=== PATIENT | male | born 1975 | race Caucasian/White ===

== ENCOUNTER 2016-07-19 10:56 | Emergency (ER) | payer SELFPAY ==
[~2016-07-19] VITALS: Ht 167.6 cm; Wt 74.0 kg
[2016-07-19 11:12] VITALS: BP 100/73; PULSE 81; RESP 16; TEMP 98.2; O2SAT 97
[2016-07-19] MEDS ORDERED: CLIN1CAP6 PO (11:26)
[2016-07-19] MEDS ORDERED: [UNRECOGNIZED DRUG - CODE] TOPICAL (11:26)
--- NOTE | 2016-07-19 11:26 | PD ---
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 Patient has had recurrent skin infection, abscess over the course of the last 20-30 years. He notes 4 days of lesion to the right arm and right face. The right facial lesion is larger and has not been draining. He notes a slight amount of pain but no weakness of the facial muscles. The right forearm lesion he was able to "pop" and removed a small amount of purulent fluid with improvement of his symptoms. PFSH Past Medical History Medical History: Denies Significant Hx Diminished Hearing: No Tetanus Vaccination: > 5 Years Influenza Vaccination: No Past Surgical History Surgical History: No Previous Surgery Other Surgery: Yes (TRACHEOTOMY 6 YRS AGO) Social History Alcohol Use: Yes (occ) Tobacco Use: No Substance Use: No (HISTORY heroin 2005, no current use) Allergies-Medications (Allergen,Severity, Reaction): Coded Allergies: Bactrim (Verified Allergy, Severe, RASH, 07/19/16) Sulfa (Verified Allergy, Severe, Rash, 07/19/16) *MDRO Multi-Drug Resistant Organism (Verified Adverse Reaction, Unknown, ) MRSA (face-06/2015); MRSA (face-10/2015); MRSA (scalp-01/21/16) Reported Meds & Prescriptions Reported Meds & Active Scripts Active Clindamycin (Clindamycin HCl) 300 Mg Cap 300 Mg PO Q6H 7 Days Betasept Surgical Scrub Topical (Chlorhexidine Gluconate) 4% Liq 1 Applic TOPICAL ONCE Review of Systems Except as stated in HPI: all other systems reviewed are Neg Physical Exam Narrative GENERAL: Well-appearing male in no acute distress SKIN: Warm and dry. HEAD: Atraumatic. Normocephalic. EYES: Pupils equal and round. No scleral icterus. No injection or drainage. ENT: No nasal bleeding or discharge. Mucous membranes pink and moist. Abscess to the right cheek/face with minimal surrounding induration. Erythema with slight amount of induration to the right dorsal forearm with no fluctuance NECK: Supple CARDIOVASCULAR: Regular rate and rhythm. RESPIRATORY: No accessory muscle use. MUSCULOSKELETAL: Moves all extremity's normally NEUROLOGICAL: Awake and alert. No obvious cranial nerve deficits. Motor grossly within normal limits. Normal speech. PSYCHIATRIC: Appropriate mood and affect; insight and judgment normal. Data Data Last Documented VS Vital Signs Date Time Temp Pulse Resp B/P Pulse Ox O2 Delivery O2 Flow Rate FiO2 07/19/16 11:12 98.2 81 16 100/73 97 Orders Lidocai-Epi 1%-1:100,000 Inj (Xylocaine- (07/19/16 11:30) [facility] Medical Decision Making Medical Screen Exam Complete: Yes Emergency Medical Condition: Yes Medical Record Reviewed: Yes Differential Diagnosis 41-year-old male here with complaint of MRSA, abscess. Exam is consistent with abscess of the face which will require drainage. Patient has abscess to the right forearm that has arty spontaneously drained. Narrative Course I&D performed to the right face by PA, please see procedure note. Will treat with clindamycin and chlorhexidine for home. Diagnosis Primary Impression: Facial abscess Additional Impression: Abscess of forearm, right Referrals: Primary Care Physician as needed Med/Other Pt SpecificInfo: Prescription(s) given Scripts Clindamycin 300 Mg [id number] Mg PO Q6H 7 Days Ref 0 Prov:Zenaida Anderson MD 07/19/16 Chlorhexidine Gluconate Topical (Betasept Surgical Scrub Topical)4% Liq1 Applic TOPICAL ONCE #118 ML Ref 0 Prov:Zenaida Anderson MD 07/19/16 Disposition: 01 DISCHARGE HOME Condition: Stable Zenaida Anderson MD Jul 19, 2016 11:26
[2016-07-19] MEDS ORDERED: LIDOCAINE 1%/EPINEPHrine 1:100,000 SOLN 20 ML VIAL INFIL ONE (11:30)
--- NOTE | 2016-07-19 11:51 | PD ---
Physical Exam Date Seen by Provider: Jul 19, 2016 Time Seen by Provider: 11:51 Data Data Last Documented VS Vital Signs Date Time Temp Pulse Resp B/P Pulse Ox O2 Delivery O2 Flow Rate FiO2 07/19/16 11:12 98.2 81 16 100/73 97 Orders Lidocai-Epi 1%-1:100,000 Inj (Xylocaine- (07/19/16 11:30) MDM Supervised Visit with FRAN: No Narrative Course I was asked to evaluate this patient's facial abscess by Dr. Anderson. She initially saw the patient. Please see her note for full H&P. On my exam this is a nontoxic-appearing 41-year-old male with a 1 cm fluctuant area of the right cheek surrounded by a 3 cm area of induration. There is a small scab on top of the abscess but no drainage. Abscess I&D was performed. Please see my procedure note for details. Dr. Anderson retains care of this patient. Please see her note for disposition. Procedures Procedure Narrative INCISION AND DRAINAGE OF ABSCESS: The area was prepped and was sterilely draped. A subcutaneous wheal of 1% Xylocaine with epinephrine with a total number 2 mL was used to anesthetize the area properly. A number 11 scalpel was used to make a 1-cm incision across the area of the abscess. The abscess was drained, complex loculations were broken down, and irrigated with normal saline. Cultures were obtained. Sterile dressing applied. Patient advised to keep the area clean, dry and covered. Diagnosis Primary Impression: Facial abscess Additional Impression: Abscess of forearm, right Referrals: Primary Care Physician as needed Scripts Clindamycin 300 Mg [id number] Mg PO Q6H 7 Days Ref 0 Prov:Zenaida Anderson MD 07/19/16 Chlorhexidine Gluconate Topical (Betasept Surgical Scrub Topical)4% Liq1 Applic TOPICAL ONCE #118 ML Ref 0 Prov:Zenaida Anderson MD 07/19/16 Disposition: 01 DISCHARGE HOME Condition: Stable Katie Delcid Jul 19, 2016 11:51
== END 2016-07-19 12:29 | disposition home or self-care (01) ==
LOC: PHEFT 10:56
DX: L02.01 Cutaneous abscess of face (principal); L02.413 Cutaneous abscess of right upper limb; B95.62 Methicillin resistant Staphylococcus aureus infection as the cause of diseases classified elsewhere
CPT/HCPCS: 10060; 86403; 87070; 87186; 87205

== ENCOUNTER 2016-11-11 12:06 | Emergency (ER) | payer SELFPAY ==
[~2016-11-11] VITALS: Ht 167.6 cm; Wt 74.0 kg
[~2016-11-11 12:06] MED LIST: CLIN1CAP6 PO; [UNRECOGNIZED DRUG - CODE] TOPICAL
[2016-11-11 12:08] VITALS: BP 124/68; PULSE 97; RESP 18; TEMP 98.1; O2SAT 98
--- NOTE | 2016-11-11 12:12 | PD ---
Physical Exam Time Seen by Provider: 12:11 Narrative 41yo M c/o R hand pain and swelling x 2days. Denies injury, IV drug use. Denies fever, vomiting. Patient seen in triage. VS reviewed. Awaiting bed placement. Data Data Last Documented VS Vital Signs Date Time Temp Pulse Resp B/P Pulse Ox O2 Delivery O2 Flow Rate FiO2 11/11/16 12:08 98.1 97 18 124/68 98 Room Air MDM Supervised Visit with FRAN: Leticia Moss Nov 11, 2016 12:12
--- NOTE | 2016-11-11 13:36 | PD ---
HPI . Right hand swelling and redness for 1-2 days Chief Complaint: Skin Problem Time Seen by Provider: 13:36 Travel History International Travel<30 days: No Contact w/Intl Traveler<30days: No Traveled to known affect area: No History of Present Illness HPI 41-year-old male with history of MRSA here with complaints of right hand swelling and erythema for 1-2 days. Patient tells me that he recently had an infection on his cheek and was diagnosed with MRSA. He says he is prone to abscesses and thinks that this is the start of 1. He does not recall any mechanism of injury or insect bite. 2 swelling, redness and pain at proximal right thumb. He tells me has a tendency of forming abscesses and decided to come in before that happened. He denies any fever or chills. He has no other complaints. 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 PFSH Past Medical History Diminished Hearing: No Medical other: Yes (MRSA HX) Tetanus Vaccination: > 5 Years Influenza Vaccination: No Past Surgical History Surgical History: No Previous Surgery Other Surgery: Yes (TRACHEOTOMY 6 YRS AGO) Social History Alcohol Use: Yes (occ) Tobacco Use: No Substance Use: No (HISTORY heroin 2005, no current use) Allergies-Medications (Allergen,Severity, Reaction): Coded Allergies: Bactrim (Verified Allergy, Severe, RASH, 11/11/16) Sulfa (Verified Allergy, Severe, Rash, 11/11/16) *MDRO Multi-Drug Resistant Organism (Verified Adverse Reaction, Unknown, ) 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, 10/2015, 07/19/16 MRSA (scalp-01/21/16) Reported Meds & Prescriptions Reported Meds & Active Scripts Active Clindamycin (Clindamycin HCl) 300 Mg Cap 300 Mg PO TID Review of Systems General / Constitutional: No: Fever Eyes: No: Visual changes HENT: No: Headaches Cardiovascular: No: Chest Pain or Discomfort Respiratory: No: Shortness of Breath Gastrointestinal: No: Abdominal Pain Genitourinary: No: Dysuria Musculoskeletal: Positive: Pain (right hand) Skin: Positive Other (right hand edema/redness), No Rash Neurologic: No: Weakness Psychiatric: No: Depression Endocrine: No: Polydipsia Hematologic/Lymphatic: No: Easy Bruising Physical Exam Narrative GENERAL: AAO x 3, no acute distress, Well-nourished, well-developed patient. SKIN: Warm and dry. No visible rashes or bruising. Right hand proximal thumb with erythema, very minimal edema, minimally warm to touch compared to surrounding tissue, no definitive abscess formation. HEAD: Normocephalic and atraumatic. EYES: No scleral icterus. No injection or drainage. EOM intact, PERRLA ENT: No nasal drainage noted. Mucous membranes pink. Airway patent. NECK: Supple, trachea midline. No JVD. CARDIOVASCULAR: Regular rate and rhythm without murmurs, gallops, or rubs. RESPIRATORY: Breath sounds equal bilaterally. No accessory muscle use. No rhonchi or rales. GASTROINTESTINAL: Abdomen soft, non-tender, nondistended. EXTREMITIES: No cyanosis or edema. Right hand all digits move freely. Capillary refill is normal in all digits. BACK: Nontender without obvious deformity. No CVA tenderness. NEURO: CN II-12 intact, events associate strength normal b/l, UE and LE 5/5, no focal deficits PSYCH: AAO x 3, normal affect. Data Data Last Documented VS Vital Signs Date Time Temp Pulse Resp B/P Pulse Ox O2 Delivery O2 Flow Rate FiO2 11/11/16 13:28 17 11/11/16 12:08 98.1 97 124/68 98 Room Air MDM Medical Decision Making Medical Screen Exam Complete: Yes Emergency Medical Condition: Yes Medical Record Reviewed: Yes Differential Diagnosis Right hand cellulitis, less likely abscess, history of MRSA, less likely sepsis Narrative Course 41-year-old male here with a mild case of cellulitis. I will go ahead and treat him with clindamycin as he is allergic to Bactrim. I have discussed signs of worsening infection and when to return to the emergency department. Patient verbalized understanding of instructions, questions were answered, and thanked me for their care. I advised them if their condition worsens, please return to the nearest emergency room for further care. Diagnosis Primary Impression: Cellulitis of right hand Patient Instructions: General Instructions Additional Instructions: Royal for worsening signs of infection which include fever, increased redness , increased warmth, purulent drainage, increased swelling or streaking. If any of these develop, please go to the nearest emergency room. Please return to emergency department if your symptoms return or worsen. Follow up with your primary care provider. Take medications as prescribed. Med/Other Pt SpecificInfo: Prescription(s) given Scripts Clindamycin 300 Mg [id number] Mg PO TID #21 CAP Prov:Aleisha Jolley MD 11/11/16 Disposition: 01 DISCHARGE HOME Condition: Stable Sejal Gottlieb Nov 11, 2016 13:36
[2016-11-11] MEDS ORDERED: CLIN1CAP6 PO (13:37)
[2016-11-11 13:58] VITALS: BP 120/71; TEMP 97.9
== END 2016-11-11 14:00 | disposition home or self-care (01) ==
LOC: NEPD 12:06
DX: L03.113 Cellulitis of right upper limb (principal); Z86.14 Personal history of Methicillin resistant Staphylococcus aureus infection
CPT/HCPCS: 99283

== ENCOUNTER 2016-11-16 17:51 | Emergency (ER) | payer SELFPAY ==
[~2016-11-16] VITALS: Ht 170.2 cm; Wt 65.0 kg
[2016-11-16 17:54] VITALS: BP 118/75; PULSE 154; RESP 18; TEMP 98.9; O2SAT 96
--- NOTE | 2016-11-16 17:57 | PD ---
Physical Exam Time Seen by Provider: 17:55 Narrative 41yo M c/o spider date x4 days ago. Was seen 2 days ago and has been taking clindamycin for 2 days w/ worsening of symptoms. +dizziness, R hand going numb. Denies fever, vomiting. Honorio TREVINO-says he's been clean for 3 years. HR elevated; pateint says he road his bike about 15 miles to be evaluated. HR will be reevaluated in ER. Patient seen in triage. VS reviewed. Patient taken to ER room. Data Data Last Documented VS Vital Signs Date Time Temp Pulse Resp B/P Pulse Ox O2 Delivery O2 Flow Rate FiO2 11/16/16 17:54 98.9 154 18 118/75 96 MDM Supervised Visit with FRAN: Leticia Moss Nov 16, 2016 17:57
[2016-11-16] MEDS: SODIUM CHLOR 0.9% 1000 ML INJ 1,000 ML IV SCH ×4 (18:09→18:15)
--- NOTE | 2016-11-16 18:16 | PD ---
HPI Chief Complaint: Bite or Sting Time Seen by Provider: 18:05 Travel History International Travel<30 days: No Contact w/Intl Traveler<30days: No Traveled to known affect area: No History of Present Illness HPI 41-year-old male presents for reevaluation of right hand cellulitis. The patient reports that 4-5 days ago he was doing some yard work and he believes that he may been bitten by a spider or some other type of bug. The next day he woke up with some pain and redness to the dorsal aspect of the proximal right thumb. He was seen here on November 11, diagnosed with synovitis right hand, discharged on clindamycin. He reports worsening pain and swelling in the region today which prompted evaluation. He denies any fevers or chills. He does endorse some dizziness prior to arrival when he was riding his bike as she reports that he had a ride his bike 15 miles in order to get here and he was feeling somewhat dizzy during the ride. This has resolved. He was noted to be quite tachycardic in triage. He is denying any palpitations, chest pain or shortness of breath, fevers or chills, nausea or vomiting. He denies any dark colored urine. He denies any change in diet. He denies any IV drug abuse. He has no other complaints. [facility] Past Medical History Diminished Hearing: No Past Surgical History Other Surgery: Yes (TRACHEOTOMY 6 YRS AGO) Social History Alcohol Use: Yes ([facility]) Tobacco Use: No Substance Use: No (HISTORY heroin 2005, no current use) Allergies-Medications (Allergen,Severity, Reaction): Coded Allergies: Bactrim (Verified Allergy, Severe, RASH, 11/16/16) Sulfa (Verified Allergy, Severe, Rash, 11/16/16) *MDRO Multi-Drug Resistant Organism (Verified Adverse Reaction, Unknown, ) 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, 10/2015, 07/19/16 MRSA (scalp-01/21/16) Reported Meds & Prescriptions Reported Meds & Active Scripts Active Clindamycin (Clindamycin HCl) 300 Mg Cap 300 Mg PO TID Review of Systems Except as stated in HPI: all other systems reviewed are Neg Physical Exam Narrative GENERAL: Well-developed well-nourished male in no acute distress resting complaint hospital bed. Tachycardic. SKIN: Warm and dry. There is a 2 cm area of mild induration and erythema to the dorsal aspect of the right hand just proximal to the thumb. There is no fluctuance or drainage. There is no proximal streaking or axillary lymphadenopathy. HEAD: Atraumatic. Normocephalic. EYES: Pupils equal and round. No scleral icterus. No injection or drainage. ENT: No nasal bleeding or discharge. Mucous membranes pink and moist. NECK: Trachea midline. No JVD. CARDIOVASCULAR: Regular rate and rhythm. No murmur appreciated. RESPIRATORY: No accessory muscle use. Clear to auscultation. Breath sounds equal bilaterally. GASTROINTESTINAL: Abdomen soft, non-tender, nondistended. Hepatic and splenic margins not palpable. MUSCULOSKELETAL: Skin as noted above with no obvious bony deformity. The patient maintains full range of motion of the right hand, thumb, no joint swelling. NEUROLOGICAL: Awake and alert. No obvious cranial nerve deficits. Motor grossly within normal limits. Normal speech. Data Data Last Documented VS Vital Signs Date Time Temp Pulse Resp B/P Pulse Ox O2 Delivery O2 Flow Rate FiO2 11/16/16 18:08 138 17 11/16/16 17:54 98.9 118/75 96 Orders Complete Blood Count With Diff (11/16/16 18:09) Comprehensive Metabolic Panel (11/16/16 18:09) Lactic Acid (11/16/16 18:09) Sodium Chlor 0.9% 1000 Ml Inj (Ns 1000 M (11/16/16 18:09) Electrocardiogram (11/16/16 18:09) Sodium Chlor 0.9% 1000 Ml Inj (Ns 1000 M (11/16/16 18:09) Creatine Kinase (Cpk) (11/16/16 18:09) Hand, Complete ([id number]) (11/16/16 ) Blood Culture (11/16/16 18:09) MDM Medical Decision Making Medical Screen Exam Complete: Yes Emergency Medical Condition: Yes Medical Record Reviewed: Yes Differential Diagnosis Cellulitis, abscess, septic arthritis, tenosynovitis Narrative Course 41-year-old male presents for reevaluation of right hand cellulitis presumably from a bug bite sustained while doing yardwork 4-5 days ago. Examination reveals a mild area of induration and cellulitis on the dorsal right hand with no abscess formation, no evidence of tenosynovitis or septic arthritis. He was markedly tachycardic in triage, he reports that he had to ride his bicycle 15 miles in order to get here. He is denying any palpitations or shortness of breath. He does endorse some dizziness while he was riding his bicycle. Plan is for basic lab work, 2 L of IV fluids. He was placed on ECG monitoring, pulse oximetry. Twelve-lead EKG will be obtained. Shortly after examination the patient's nurse told me that the patient is refusing any sort of testing or additional intervention. He would like some form of incision and drainage to be performed and that is all that he is willing to have done at this time. He has no fluctuant abscess at this time, he has purely indurated cellulitic changes and would not benefit from incision and drainage. I am concerned about his dizziness and his tachycardia which is not resolved during his ED stay thus far and explained to the patient my concerns and the reason for additional testing but the patient is refusing it and he ripped off his ECG monitoring pads. Looking at his recent visits he has been seen here multiple times for frequent cellulitis and abscess formation issues, most recently he was seen here in July 19 for a facial abscess. The culture at that time grew out staph aureus MRSA which was resistant to clindamycin however was susceptible to doxycycline. Therefore my plan upon discharge would be to give this patient a prescription for doxycycline to use instead of clindamycin over the patient is refusing any additional antibiotic prescriptions as well. He is signing out AGAINST MEDICAL ADVICE. I attempted to explain the risks of this to him prior to him walking out. AMA: The risks of leaving against medical advice without further evaluation treatment were discussed with the patient. These risks include cardiac dysfunction, sepsis, dehydration, . The patient indicated understanding of these risks and appeared to have the capacity to make this decision. Disposition: 07 AGAINST MEDICAL ADVICE Condition: Stable Etienne Tucker Nov 16, 2016 18:16
--- NOTE | 2016-11-17 06:49 | EKG ---
Date Performed: 11/16/2016 Time Performed: 18:23:40 PTAGE: 41 years EKG: SINUS TACHYCARDIA NONSPECIFIC T-WAVE ABNORMALITY ABNORMAL RHYTHM ECG PREVIOUS TRACING : 07/20/2008 22.01 Compared to previous tracing nonspecific T wave abnormality is now present. DOCTOR: Roderick Watson Interpretating Date/Time 11/17/2016 06:47:16
== END 2016-11-16 18:58 | disposition left against medical advice (07) ==
LOC: NEPE 17:51
DX: L03.113 Cellulitis of right upper limb (principal); R00.0 Tachycardia, unspecified; R94.31 Abnormal electrocardiogram [ECG] [EKG]
CPT/HCPCS: 93005; J7030

== ENCOUNTER 2016-12-30 08:09 | Emergency (ER) | payer SELFPAY ==
[~2016-12-30] VITALS: Ht 167.6 cm; Wt 68.1 kg
[~2016-12-30 08:09] MED LIST changes: -[UNRECOGNIZED DRUG - CODE] TOPICAL
[2016-12-30 08:11] VITALS: BP 123/81; PULSE 77; RESP 16; TEMP 97.9; O2SAT 99
[2016-12-30] MEDS ORDERED: DOXY100C PO (08:24)
--- NOTE | 2016-12-30 08:24 | PD ---
HPI Chief Complaint: Skin Problem Time Seen by Provider: 08:16 Travel History International Travel<30 days: No Contact w/Intl Traveler<30days: No Traveled to known affect area: No History of Present Illness HPI RIGHT SIDE OF CHIN REDNESS, SWELLING FOR LAST 2 DAYS NOT IMPROVING, SORE, NOT DRAINING, TENDER TO TOUCH 3/10, SHARP, NO OTHER SICK CONTACTS, HAS HAD MRSA EXPOSURE BEFORE (STATES BACTRIM CAUSED HIVES) PFSH Past Medical History Diminished Hearing: No Gastrointestinal Disorders: Yes Influenza Vaccination: No ?: Not Past Surgical History Surgical History: No Previous Surgery Other Surgery: Yes (TRACHEOTOMY 6 YRS AGO) Social History Alcohol Use: Yes (occ) Tobacco Use: No Substance Use: No (HISTORY heroin 2005, no current use) Allergies-Medications (Allergen,Severity, Reaction): Coded Allergies: Bactrim (Verified Allergy, Severe, RASH, 12/30/16) Sulfa (Verified Allergy, Severe, Rash, 12/30/16) *MDRO Multi-Drug Resistant Organism (Verified Adverse Reaction, Unknown, ) 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, 10/2015, 07/19/16 MRSA (scalp-01/21/16) Reported Meds & Prescriptions Reported Meds & Active Scripts Active Review of Systems Except as stated in HPI: all other systems reviewed are Neg Skin: Positive Rash Physical Exam Narrative GENERAL: SKIN: Warm and dry. AREA ON RIGHT MENTAL REGION, NICKEL SIZE IN CIRCUMFERENCE, NO DRAINAGE, ERYTHEMATOUS AND INDURATED, NO CERVICAL LAD, NO STREAKING HEAD: Atraumatic. Normocephalic. EYES: Pupils equal and round. No scleral icterus. No injection or drainage. ENT: No nasal bleeding or discharge. Mucous membranes pink and moist. NECK: Trachea midline. No JVD. CARDIOVASCULAR: Regular rate and rhythm. RESPIRATORY: No accessory muscle use. Clear to auscultation. Breath sounds equal bilaterally. GASTROINTESTINAL: Abdomen soft, non-tender, nondistended. MUSCULOSKELETAL: Extremities without clubbing, cyanosis, or edema. No obvious deformities. NEUROLOGICAL: Awake and alert. No obvious cranial nerve deficits. Motor grossly within normal limits. Five out of 5 muscle strength in the arms and legs. Normal speech. PSYCHIATRIC: Appropriate mood and affect; insight and judgment normal. Data Data Last Documented VS Vital Signs Date Time Temp Pulse Resp B/P Pulse Ox O2 Delivery O2 Flow Rate FiO2 12/30/16 08:11 97.9 77 16 123/81 99 Orders Clindamycin Inj (Cleocin Inj) (12/30/16 08:30) MDM Medical Decision Making Medical Screen Exam Complete: Yes Emergency Medical Condition: Yes Medical Record Reviewed: Yes Differential Diagnosis CELLULITIS V ABSCESS V ODONTOGENIC SOURCE Narrative Course AFTER EVALUATION NO ODONTOGENIC SOURCE, ISOLATED SKIN CELLULITIS ON CHIN, NO SUBMAND/SUBMENTAL EXTENSION, NO CERVICAL LAD, NO STREAKING. Diagnosis Primary Impression: FACIAL CELLULITIS Scripts Doxycycline Hyclate 100 Mg [id number] Mg PO BID #20 CAP Prov:Que Briones MD 12/30/16 Disposition: 01 DISCHARGE HOME Condition: Stable Que Briones MD Dec 30, 2016 08:24
[2016-12-30] MEDS ORDERED: CLINDAMYCIN PHOS 300 MG/2 ML VIAL IM ONE (08:30)
[2016-12-30] MEDS ORDERED: CLINDAMYCIN PHOS 600 MG/4 ML VIAL IM ONE (08:45)
== END 2016-12-30 08:58 | disposition home or self-care (01) ==
LOC: PHED 08:09
DX: L03.211 Cellulitis of face (principal)
CPT/HCPCS: 96372

== ENCOUNTER 2017-01-07 18:13 | Emergency (ER) | payer SELFPAY ==
[~2017-01-07] VITALS: Ht 167.6 cm; Wt 69.8 kg
[~2017-01-07 18:13] MED LIST changes: -CLIN1CAP6 PO; +DOXY100C PO
[2017-01-07 19:34] VITALS: BP 120/77; PULSE 93; RESP 20; TEMP 98; O2SAT 99
[2017-01-07] MEDS ORDERED: LIDOCAINE HCL 1% 50 ML VIAL INFIL ONE (20:45)
--- NOTE | 2017-01-07 21:36 | PD ---
HPI Chief Complaint: Skin Problem Time Seen by Provider: 20:15 Travel History International Travel<30 days: No Contact w/Intl Traveler<30days: No Traveled to known affect area: No History of Present Illness HPI 41-year-old male presents to the emergency room for evaluation of an abscess to his right posterior lateral neck for the past 2 days. Patient states it started off as a small ingrown hair and grew rapidly in size. He came to the emergency room 2 days ago for an abscess to his face and was given a prescription for clindamycin. States he has been taking it as prescribed and noticed the abscess form shortly afterward. He denies fever, chills, nausea, vomiting. He has history of MRSA and states this is the ninth time he came to the emergency room in the past few years for abscess or cellulitis. PFSH Past Medical History Diminished Hearing: No Gastrointestinal Disorders: Yes Medical other: Yes (reoccurring abcesses) Tetanus Vaccination: Unknown Influenza Vaccination: No Past Surgical History Abdominal Surgery: Yes (stomach repair) Other Surgery: Yes (TRACHEOTOMY 6 YRS AGO) Social History Alcohol Use: Yes (social) Tobacco Use: No Substance Use: No (HISTORY heroin 2005, no current use) Allergies-Medications (Allergen,Severity, Reaction): Coded Allergies: Bactrim (Verified Allergy, Severe, RASH, 01/07/17) Sulfa (Verified Allergy, Severe, Rash, 01/07/17) *MDRO Multi-Drug Resistant Organism (Verified Adverse Reaction, Unknown, ) 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, 10/2015, 07/19/16 MRSA (scalp-01/21/16) Reported Meds & Prescriptions Reported Meds & Active Scripts Active Doxycycline Hyclate 100 Mg Cap 100 Mg PO BID Review of Systems Except as stated in HPI: all other systems reviewed are Neg Physical Exam Narrative GENERAL: Well-nourished, well-developed male in no acute distress. Afebrile. Ambulatory. SKIN: Focused skin assessment warm/dry. There is an indurated area in the right posterior lateral neck which measures about 3 cm in diameter. It is fluctuant but there is no pointing or drainage. There is a zone of inflammation around it but no lymphangitis. HEAD: Normocephalic. EYES: No scleral icterus. No injection or drainage. NECK: Supple, trachea midline. No JVD or lymphadenopathy. CARDIOVASCULAR: Regular rate and rhythm without murmurs, gallops, or rubs. RESPIRATORY: Breath sounds equal bilaterally. No accessory muscle use. PSYCHIATRIC: No delusional thought processes. No hallucinations. Data Data Last Documented VS Vital Signs Date Time Temp Pulse Resp B/P Pulse Ox O2 Delivery O2 Flow Rate FiO2 01/07/17 19:34 98.0 93 20 120/77 99 Orders Lidocaine 1% Inj (50 Ml) (Xylocaine 1% I (01/07/17 20:45) [facility] Medical Decision Making Medical Screen Exam Complete: Yes Emergency Medical Condition: Yes Medical Record Reviewed: Yes Differential Diagnosis Abscess, cellulitis, folliculitis Narrative Course 41-year-old male presents to the emergency room for evaluation of abscess to his right posterior lateral neck for the past 2 days. Patient was put on clindamycin 2 days ago for an unrelated abscess on his face and noticed the development shortly afterward. Denies spontaneous drainage. No systemic signs of infection. Vital signs stable. Patient is afebrile and well-appearing in the emergency room. There is a 3 cm abscess to the right posterior lateral neck without lymphangitis. It is extremely tender to palpation. Abscess was drained, see procedure note for details. Patient told to continue clindamycin 1 follow-up with a primary care physician or return for worsening symptoms. He understands and agrees to plan. Procedures Procedure Narrative INCISION AND DRAINAGE OF ABSCESS: The area was prepped and was sterilely draped. A subcutaneous wheal of 1% lidocaine with a total number 2 mL was used to anesthetize the area properly. A number 11 scalpel was used to make a 1 cm incision across the area of the abscess. The abscess was drained, complex loculations were broken down, and irrigated with normal saline. Sterile dressing applied. Diagnosis Primary Impression: Neck abscess Referrals: Primary Care Physician Patient Instructions: Abscess (ED), General Instructions Additional Instructions: Rest and drink plenty of fluids. Continue taking clindamycin as directed, until gone. Follow up with a primary care physician. Return to emergency room for worsening symptoms, as discussed. Disposition: 01 DISCHARGE HOME Condition: Stable Pam Zuñiga Jan 07, 2017 21:36
[2017-01-07] MEDS ORDERED: KETOROLAC TROMETHAMINE 60 MG/2 ML (IM) VIAL IM ONE (21:45)
== END 2017-01-07 22:00 | disposition home or self-care (01) ==
LOC: PHED 18:13 → PHEFT 22:00
DX: L02.11 Cutaneous abscess of neck (principal)
CPT/HCPCS: 10060; 96372; 99284; J1885

== ENCOUNTER 2017-04-05 17:35 | Emergency (ER) | payer SELFPAY ==
[2017-04-05 17:45] VITALS: BP 129/82; PULSE 94; RESP 16; TEMP 98.4; O2SAT 97
[2017-04-05] MEDS ORDERED: SODIUM CHLOR 0.9% 1000 ML INJ 1,000 ML IV ONE (18:00)
--- NOTE | 2017-04-05 18:06 | PD ---
HPI Chief Complaint: OD/ Ingestion Time Seen by Provider: 17:42 Travel History International Travel<30 days: No Contact w/Intl Traveler<30days: No Traveled to known affect area: No History of Present Illness HPI 41-year-old male complaining generalized malaise and weakness. Patient has history of IV drug abuse. Patient states that he has been shooting up heroin for years. Last IV drug abuse was about half an hour ago. Patient was witnessed to have drowsiness and unsteadiness gait. EMS was called. Patient was found to have hypoxia with O2 sounds in the 80s and hypercapnia. Narcan 0.4 mg IV given. Patient's clinical with improvement after medication was given. Patient with with transport to ED for evaluation. Patient denies any headache. Patient denies any chest pain or shortness of breath. Patient denies abdominal pain. Patient denies any nausea vomiting. Patient denies any focal weakness or numbness of extremity. Patient denies any medical problem. Patient is not on any routine medication. Patient denies any alcohol or other illicit drug abuse. PFSH Past Medical History Diminished Hearing: No Gastrointestinal Disorders: Yes Past Surgical History Abdominal Surgery: Yes (stomach repair) Other Surgery: Yes (TRACHEOTOMY 6 YRS AGO) Social History Alcohol Use: Yes (social) Tobacco Use: No Substance Use: No (HISTORY heroin 2005, no current use) Allergies-Medications (Allergen,Severity, Reaction): Coded Allergies: Sulfa (Sulfonamide Antibiotics) (Unverified Allergy, Severe, Rash, 01/11/17 ) sulfamethoxazole (Unverified Allergy, Severe, RASH, 01/11/17) trimethoprim (Unverified Allergy, Severe, RASH, 01/11/17) *MDRO Multi-Drug Resistant Organism (Verified Adverse Reaction, Unknown, ) 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, 10/2015, 07/19/16 MRSA (scalp-01/21/16) Reported Meds & Prescriptions Reported Meds & Active Scripts Active Doxycycline Hyclate 100 Mg Cap 100 Mg PO BID Review of Systems General / Constitutional: No: Fever Eyes: No: Visual changes HENT: No: Headaches Cardiovascular: No: Chest Pain or Discomfort Respiratory: No: Shortness of Breath Gastrointestinal: No: Abdominal Pain Genitourinary: No: Dysuria Musculoskeletal: No: Pain Skin: No Rash Neurologic: No: Weakness Psychiatric: No: Depression Endocrine: No: Polydipsia Hematologic/Lymphatic: No: Easy Bruising Physical Exam Narrative GENERAL: Well-nourished, well-developed patient. SKIN: Focused skin assessment warm/dry. HEAD: Normocephalic. EYES: No scleral icterus. No injection or drainage. NECK: Supple, trachea midline. No JVD or lymphadenopathy. CARDIOVASCULAR: Regular rate and rhythm without murmurs, gallops, or rubs. RESPIRATORY: Breath sounds equal bilaterally. No accessory muscle use. GASTROINTESTINAL: Abdomen soft, non-tender, nondistended. MUSCULOSKELETAL: No cyanosis, or edema. BACK: Nontender without obvious deformity. No CVA tenderness. Neurologic exam: Patient with mild drowsiness however answer questions appropriately. No obvious focal neurological deficit. Data Data Last Documented VS Vital Signs Date Time Temp Pulse Resp B/P (MAP) Pulse Ox O2 Delivery O2 Flow Rate FiO2 04/05/17 23:00 90 18 98 Room Air 04/05/17 19:01 1.00 04/05/17 17:45 98.4 Orders Orders Basic Metabolic Panel (Bmp) (04/05/17 17:47) Chest, Single Ap (04/05/17 17:47) Iv Access Insert/Monitor (04/05/17 17:47) Sodium Chlor 0.9% 1000 Ml Inj (Ns 1000 M (04/05/17 18:00) Labs Laboratory Tests Test 04/05/17 18:00 Blood Urea Nitrogen 9 MG/DL Creatinine 0.71 MG/DL Random Glucose 85 MG/DL Calcium Level 9.2 MG/DL Sodium Level 133 MEQ/L Potassium Level 4.4 MEQ/L Chloride Level 97 MEQ/L Carbon Dioxide Level 27.9 MEQ/L Anion Gap 8 MEQ/L Estimat Glomerular Filtration Rate 123 ML/MIN [facility] Medical Decision Making Medical Screen Exam Complete: Yes Emergency Medical Condition: Yes Interpretation(s) 1904 PM. Sodium 133. Differential Diagnosis Differential diagnosis including IV drug abuse, dehydration, electrolyte imbalance. Narrative Course 41-year-old male with history IV drug abuse was brought in for lethargy and unsteady gait. Patient was shooting up heroin. Patient was given Narcan 0.4 mg IV at the scene by EMS. Patient small awake and alert now. Patient will be observed and given IV fluid and the ED. Normal saline solution 1 L IV bolus. 20 3:03 PM. Patient's awake alert oriented and steady on his feet Diagnosis Primary Impression: Drug overdose Qualified Codes: T50.901A - Poisoning by unspecified drugs, medicaments and biological substances, accidental (unintentional), initial encounter Additional Impressions: Substance abuse Hyponatremia Patient Instructions: General Instructions Additional Instructions: Advised [facility] drug detox. Med/Other Pt SpecificInfo: No Meds Exist/No RX given Disposition: 01 DISCHARGE HOME Condition: Serious Matheus Edwards MD Apr 05, 2017 18:06
--- NOTE | 2017-04-05 18:27 | RADRPT ---
EXAM DATE/TIME: 04/05/2017 18:05 [facility] COMPARISON: CHEST SINGLE AP, November 02, 2015, 15:01. INDICATIONS : Short of breath. MEDICAL HISTORY : None. SURGICAL HISTORY : None. ENCOUNTER: Initial ACUITY: 1 day PAIN SCORE: Non-responsive. LOCATION: Bilateral chest FINDINGS: Portable AP view of the chest demonstrates a normal-sized cardiac silhouette. No effusion, consolidat ion, or pneumothorax is visualized. The bones and soft tissues demonstrate no acute abnormality. CONCLUSION: No acute cardiopulmonary abnormality is identified. Sukhi Goodman MD on April 05, 2017 at 18:25 Board Certified Radiologist. This report was verified electronically.
[2017-04-05 18:46] LABS: BICARBONATE 27.9 MEQ/L (21.0-32.0)
[2017-04-05 19:01] VITALS: BP 136/84; PULSE 82; RESP 16; O2SAT 99
[2017-04-05 19:02] LABS: POTASSIUM 4.4 MEQ/L (3.5-5.1)
[2017-04-05 21:25] VITALS: BP 138/94; PULSE 85; RESP 18; O2SAT 99
[2017-04-05 23:00] VITALS: PULSE 90; RESP 18; O2SAT 98
== END 2017-04-05 23:28 | disposition home or self-care (01) ==
LOC: NEPD 17:35
DX: T40.1X1A Poisoning by heroin, accidental (unintentional), initial encounter (principal); R53.81 Other malaise; R53.1 Weakness; R09.02 Hypoxemia; R06.89 Other abnormalities of breathing; Z79.899 Other long term (current) drug therapy; Z88.2 Allergy status to sulfonamides; Z88.8 Allergy status to other drugs, medicaments and biological substances
CPT/HCPCS: 71010; 80048; 96360; 99284; J7030

== ENCOUNTER 2017-05-19 10:40 | Inpatient (IN) | payer SELFPAY ==
[~2017-05-19] VITALS: Ht 167.6 cm; Wt 75.1 kg
[2017-05-19] MEDS ORDERED: IOHEXOL 350 MG/ML 10 ML VIAL (for RAD DIAG) IVCONTRAST ONE (10:41)
[2017-05-19 10:48] VITALS: BP 155/85; PULSE 100; RESP 20; TEMP 98.1; O2SAT 98
--- NOTE | 2017-05-19 10:51 | PD ---
HPI Chief Complaint: Pain: Acute or Chronic Time Seen by Provider: 10:44 Travel History International Travel<30 days: No Contact w/Intl Traveler<30days: No History of Present Illness HPI This is a 41-year-old male who presents to the emergency department with left shoulder pain that started yesterday, constant, severe worse with moving his left arm. He describes the pain as on the left side of his neck and on the upper front of his chest. He denies any associated fevers or chills. It's a soreness. He denies any associated injury. He denies any history of IV drug use. PFSH Past Medical History Diminished Hearing: No Gastrointestinal Disorders: Yes Past Surgical History Abdominal Surgery: Yes (stomach repair) Other Surgery: Yes (TRACHEOTOMY 6 YRS AGO) Social History Alcohol Use: Yes (social) Tobacco Use: No Substance Use: Yes (heroin iv) Allergies-Medications (Allergen,Severity, Reaction): Coded Allergies: Sulfa (Sulfonamide Antibiotics) (Unverified Allergy, Severe, Rash, 01/11/17 ) sulfamethoxazole (Unverified Allergy, Severe, RASH, 01/11/17) trimethoprim (Unverified Allergy, Severe, RASH, 01/11/17) *MDRO Multi-Drug Resistant Organism (Verified Adverse Reaction, Unknown, ) 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, 10/2015, 07/19/16 MRSA (scalp-01/21/16) Reported Meds & Prescriptions Reported Meds & Active Scripts Active Review of Systems Except as stated in HPI: all other systems reviewed are Neg Physical Exam Narrative GENERAL:Well appearing, no acute distress SKIN: Focused skin assessment warm and dry. HEAD: Atraumatic. Normocephalic. EYES: Pupils equal and round. No injection or drainage. ENT: Moist mucous membranes NECK: Trachea midline. CARDIOVASCULAR: Regular rate and rhythm. No murmur appreciated. RESPIRATORY: Clear to auscultation. Breath sounds equal bilaterally. GASTROINTESTINAL: Abdomen soft, non-tender, nondistended. MUSCULOSKELETAL: Some pain with abduction of the left shoulder, focally tender to palpation over the left clavicle at the sternoclavicular and left AC joint with tenderness in the left paracervical region posteriorly NEUROLOGICAL: Awake and alert. No obvious cranial nerve deficits. Moving all extremities. PSYCHIATRIC: Appropriate mood and affect; insight and judgment normal. Data Data Last Documented VS Vital Signs Date Time Temp Pulse Resp B/P (MAP) Pulse Ox O2 Delivery O2 Flow Rate FiO2 05/19/17 12:20 16 05/19/17 10:48 98.1 100 155/85 (108) 98 Orders Orders Complete Blood Count With Diff (05/19/17 10:48) Comprehensive Metabolic Panel (05/19/17 10:48) Westergren Sedimentation Rate (05/19/17 10:48) C-Reactive Protein (Crp) (05/19/17 10:48) Chest, Single Ap (05/19/17 ) Shoulder, Limited(2vws) (05/19/17 ) Ketorolac Inj (Toradol Inj) (05/19/17 11:00) Ct Soft Tiss Neck W Iv Cont (05/19/17 ) Ct Thorax/ Chest W Iv Contrast (05/19/17 ) Blood Culture (05/19/17 11:55) Lactic Acid (05/19/17 11:55) Iohexol 350 Inj (Omnipaque 350 Inj) (05/19/17 10:41) Vancomycin Inj (Vancomycin Inj) (05/19/17 14:00) Admit Order (Ed Use Only) (05/19/17 14:38) Labs Laboratory Tests Test 05/19/17 11:07 05/19/17 13:05 White Blood Count 12.5 TH/MM3 Red Blood Count 4.41 MIL/MM3 Hemoglobin 12.8 GM/DL Hematocrit 38.5 % Mean Corpuscular Volume 87.2 FL Mean Corpuscular Hemoglobin 29.1 PG Mean Corpuscular Hemoglobin Concent 33.4 % Red Cell Distribution Width 14.8 % Platelet Count 274 TH/MM3 Mean Platelet Volume 8.5 FL Neutrophils (%) (Auto) 85.3 % Lymphocytes (%) (Auto) 7.2 % Monocytes (%) (Auto) 6.8 % Eosinophils (%) (Auto) 0.5 % Basophils (%) (Auto) 0.2 % Neutrophils # (Auto) 10.7 TH/MM3 Lymphocytes # (Auto) 0.9 TH/MM3 Monocytes # (Auto) 0.8 TH/MM3 Eosinophils # (Auto) 0.1 TH/MM3 Basophils # (Auto) 0.0 TH/MM3 CBC Comment DIFF FINAL Differential Comment Erythrocyte Sedimentation Rate 66 mm/hr Blood Urea Nitrogen 10 MG/DL Creatinine 0.67 MG/DL Random Glucose 114 MG/DL Total Protein 8.1 GM/DL Albumin 3.2 GM/DL Calcium Level 8.5 MG/DL Alkaline Phosphatase 70 U/L Aspartate Amino Transf (AST/SGOT) 42 U/L Alanine Aminotransferase (ALT/SGPT) 36 U/L Total Bilirubin 0.7 MG/DL Sodium Level 138 MEQ/L Potassium Level 4.3 MEQ/L Chloride Level 104 MEQ/L Carbon Dioxide Level 26.7 MEQ/L Anion Gap 7 MEQ/L Estimat Glomerular Filtration Rate 131 ML/MIN C-Reactive Protein 9.13 MG/DL Lactic Acid Level 1.0 mmol/L [facility] Medical Decision Making Medical Screen Exam Complete: Yes Emergency Medical Condition: Yes Interpretation(s) Afebrile, mild tachycardia, hypertensive Leukocytosis Sedimentation rate is 66 Electrolytes are reassuring CRP is 9 Lactic acid is 1 Last 24 hours Impressions Shoulder X-Ray 05/19/17 0000 Signed Impressions: Service Date/Time: April 11:16 - CONCLUSION: Unremarkable limited examination of the left shoulder. Js Cheung MD Neck CT 05/19/17 0000 Signed Impressions: Service Date/Time: April 12:30 - CONCLUSION: Normal examination. There is diffuse soft tissue edema left side of the neck compared to the right but no deep abscess or fluid is identified. Js Cheung MD Chest X-Ray 05/19/17 0000 Signed Impressions: Service Date/Time: April 11:15 - CONCLUSION: Normal examination. Left hemidiaphragm is slightly elevated. Js Cheung MD Chest CT 05/19/17 0000 Signed Impressions: Service Date/Time: April 12:36 - CONCLUSION: Bronchiectasis and scarring in the right middle lobe medially. No concerning masses seen. No etiology for chest pain is identified. Js Cheung MD Differential Diagnosis Septic arthritis, cellulitis, abscess, sepsis Narrative Course This is a 41-year-old male who presents to the emergency department with pain in his chest immediately above the clavicle and along the lateral paracervical muscles of the neck. He has a history of IV drug use. His pain is disproportionate to his exam. I'm concerned he has an underlying deep space infection or septic arthritis given his history of IV drug use. Labs are obtained which demonstrate an elevated white blood cell count as well as elevated sedimentation rate and CRP. Cultures were obtained and he was placed on vancomycin. CT demonstrates edema in the soft tissue of the neck. Patient will be admitted for MRI and continued antibiotic therapy. Physician Communication Physician Communication Discussed with Dr. Lechuga Diagnosis Primary Impression: Cellulitis, neck Admitting Information Admitting Physician Requests: Admit Airam Winters MD May 19, 2017 10:51
[2017-05-19] MEDS ORDERED: KETOROLAC TROMETHAMINE 30 MG/ML (IVP) VIAL IV PUSH ONE (11:00)
[2017-05-19 11:20] LABS: AUTOMATED NEUTROPHIL # 10.7 TH/MM3 (1.8-7.7); BASOPHIL % 0.2 % (0.0-2.0); EOSINOPHIL # 0.1 TH/MM3 (0-0.4); EOSINOPHIL % 0.5 % (0.0-4.0); HEMATOCRIT 38.5 % (39.0-51.0); HEMOGLOBIN 12.8 GM/DL (13.0-17.0); LYMPH % 7.2 % (9.0-44.0); LYMPHOCYTE # 0.9 TH/MM3 (1.0-4.8); MEAN CELL VOLUME 87.2 FL (80.0-100.0); MEAN CORPUSCULAR HEMOGLOBIN 29.1 PG (27.0-34.0); MEAN CORPUSCULAR HGB CONC 33.4 % (32.0-36.0); MEAN PLATELET VOLUME 8.5 FL (7.0-11.0); MONO % 6.8 % (0.0-8.0); MONOCYTE # 0.8 TH/MM3 (0-0.9); NEUT % 85.3 % (16.0-70.0); PLATELET COUNT 274 TH/MM3 (150-450); RED BLOOD COUNT 4.41 MIL/MM3 (4.50-5.90); RED CELL DISTRIBUTION WIDTH 14.8 % (11.6-17.2); WHITE BLOOD COUNT 12.5 TH/MM3 (4.0-11.0)
--- NOTE | 2017-05-19 11:27 | RADRPT ---
EXAM DATE/TIME: 05/19/2017 11:16 [facility] COMPARISON: No previous studies available for comparison. INDICATIONS : Left shoulder pain no known injury pain x 1 day. MEDICAL HISTORY : None. SURGICAL HISTORY : None. ENCOUNTER: Initial ACUITY: 1 day PAIN SCORE: 10/10 LOCATION: Left Shoulder. FINDINGS: Two view examination of the left shoulder demonstrates no evidence of fracture or dislocation. The g lenohumeral and acromioclavicular joints are maintained. Bony mineralization is normal. CONCLUSION: Unremarkable limited examination of the left shoulder. Js hCeung MD on May 19, 2017 at 11:25 Board Certified Radiologist. This report was verified electronically.
--- NOTE | 2017-05-19 11:27 | RADRPT ---
EXAM DATE/TIME: 05/19/2017 11:15 [facility] COMPARISON: CHEST SINGLE AP, April 05, 2017, 18:05. INDICATIONS : Chest and rib pain no known injury. MEDICAL HISTORY : None. SURGICAL HISTORY : None. ENCOUNTER: Initial ACUITY: 1 day PAIN SCORE: 10/10 LOCATION: Bilateral chest FINDINGS: A single view of the chest demonstrates the lungs to be symmetrically aerated without evidence of mas s, infiltrate or effusion. The cardiomediastinal contours are unremarkable. Osseous structures are intact. CONCLUSION: Normal examination. Left hemidiaphragm is slightly elevated. Js Cheung MD on May 19, 2017 at 11:25 Board Certified Radiologist. This report was verified electronically.
[2017-05-19 11:46] LABS: ALBUMIN 3.2 GM/DL (3.4-5.0); ALKALINE PHOSPHATASE 70 U/L (45-117); ALT (GPT) 36 U/L (12-78); BICARBONATE 26.7 MEQ/L (21.0-32.0); BLOOD UREA NITROGEN 10 MG/DL (7-18); C-REACTIVE PROTEIN 9.13 MG/DL (0.00-0.30); CALCIUM 8.5 MG/DL (8.5-10.1); CHLORIDE 104 MEQ/L (98-107); CREATININE 0.67 MG/DL (0.60-1.30); GLOMERULAR FILTRATION RATE 131 ML/MIN (>89); GLUCOSE,RANDOM 114 MG/DL (74-106); SODIUM (NA) 138 MEQ/L (136-145); TOTAL BILIRUBIN ADULT 0.7 MG/DL (0.2-1.0); TOTAL PROTEIN 8.1 GM/DL (6.4-8.2)
[2017-05-19 11:47] LABS: AST (GOT) 42 U/L (15-37)
--- NOTE | 2017-05-19 13:23 | RADRPT ---
EXAM DATE/TIME: 05/19/2017 12:30 [facility] COMPARISON: No previous studies available for comparison. INDICATIONS : Left side chest and neck pain. IV CONTRAST: 50 cc Omnipaque 350 (iohexol) IV RADIATION DOSE: 14.74 CTDIvol (mGy) MEDICAL HISTORY : None SURGICAL HISTORY : Tracheotomy ENCOUNTER: Initial ACUITY: 1 day PAIN SCALE: 10/10 LOCATION: Left neck TECHNIQUE: Volumetric scanning of the neck was performed. Using automated exposure control and adjustment of th e mA and/or kV according to patient size, radiation dose was kept as low as reasonably achievable to obtain optimal diagnostic quality images. DICOM format image data is available electronically for r eview and comparison. FINDINGS: NASOPHARYNX: The nasopharyngeal airway has a normal configuration. No mucosal thickening or mass is seen. OROPHARYNX: The intrinsic muscles of the tongue are symmetric. The tonsillar pillars are intact. The prevertebr al soft tissues are not thickened. LARYNX: The supraglottic, glottic, and infraglottic structures are intact. PARAPHARYNGEAL: The parapharyngeal space is intact. SALIVARY GLANDS: The parotid and submandibular glands are intact. LYMPH NODES: No enlarged or necrotic-appearing nodes. THYROID: Homogeneous enhancement without evidence of nodule. BONES: Unremarkable. CONCLUSION: Normal examination. There is diffuse soft tissue edema left side of the neck compared to the right b ut no deep abscess or fluid is identified. Js Cheung MD on May 19, 2017 at 13:20 Board Certified Radiologist. This report was verified electronically.
--- NOTE | 2017-05-19 13:31 | RADRPT ---
EXAM DATE/TIME: 05/19/2017 12:36 [facility] COMPARISON: No previous studies available for comparison. INDICATIONS : Left sholder and chest pain. IV CONTRAST: 50 cc Omnipaque 350 (iohexol) IV RADIATION DOSE: 7.07 CTDIvol (mGy) MEDICAL HISTORY : None SURGICAL HISTORY : trachotomy ENCOUNTER: Initial ACUITY: 1 day PAIN SCALE: 10/10 LOCATION: Left chest TECHNIQUE: Volumetric scanning of the chest was performed. Using automated exposure control and adjustment of t he mA and/or kV according to patient size, radiation dose was kept as low as reasonably achievable to obtain optimal diagnostic quality images. DICOM format image data is available electronically for review and comparison. Follow-up recommendations for detected pulmonary nodules are based at a minimum on nodule size and pa tient risk factors according to Fleischner Society Guidelines. FINDINGS: LUNGS: There is no consolidation or pneumothorax except for minimal atelectasis and scarring in the right mi ddle lobe with a small area of bronchiectasis. No concerning pulmonary nodule is visualized. PLEURA: There is no pleural thickening. Small left pleural effusion. MEDIASTINUM: The heart and great vessels demonstrate no acute abnormality. There is no mediastinal or hilar lymph adenopathy. AXILLAE: Within normal limits. No lymphadenopathy. SKELETAL: Within normal limits for patient age. MISCELLANEOUS: The visualized upper abdominal organs demonstrate no acute abnormality. CONCLUSION: Bronchiectasis and scarring in the right middle lobe medially. No concerning masses seen. No etiology for chest pain is identified. Js Cheung MD on May 19, 2017 at 13:27 Board Certified Radiologist. This report was verified electronically.
[2017-05-19] MEDS ORDERED: VANCOMYCIN INJ 1,000 MG in SODIUM CHLOR 0.9% 250 ML INJ 250 ML IV ONE (14:00)
[2017-05-19] MEDS ORDERED: GADODIAMIDE PF 287 MG/ML 5 ML VIAL (for RAD MRI) IVCONTRAST ONE ×2 (14:42→16:28)
[2017-05-19] MEDS ORDERED: Vancomycin Consult Pharmacy 1 EA OTHER SCH (14:45)
[2017-05-19] MEDS ORDERED: NALOXONE HCL 0.4 MG/ML AMP IV PUSH PRN (15:00)
[2017-05-19] MEDS: SODIUM CHLOR 0.45% 1000 ML INJ 1,000 ML IV SCH (15:00)
[2017-05-19] MEDS ORDERED: ACETAMINOPHEN 325 MG TAB PO PRN (15:00)
[2017-05-19] MEDS ORDERED: SENNOSIDES 8.6 MG TAB PO PRN (15:00)
[2017-05-19] MEDS ORDERED: ONDANSETRON HCL 4 MG/2 ML VIAL IVP PRN (15:00)
[2017-05-19] MEDS ORDERED: MAGNESIUM HYDROXIDE SUSP 30 ML CUP PO PRN (15:00)
[2017-05-19] MEDS ORDERED: BISACODYL 10 MG SUPP RECTAL PRN (15:00)
[2017-05-19] MEDS ORDERED: LACTULOSE SYRUP 20 GM/30 ML CUP PO PRN (15:00)
[2017-05-19] MEDS ORDERED: SODIUM CHLORIDE 0.9% FLUSH 10 ML FLUSH IV FLUSH PRN (15:00)
--- NOTE | 2017-05-19 15:03 | HHI.HP ---
[facility] Unknown Admission Diagnosis neck cellulitis Diagnoses: Chief Complaint: Left neck pain Travel History International Travel<30 Days: No Contact w/Intl Traveler <30 Da: No Traveled to Known Affected Are: No History of Present Illness This is a 41-year-old male with past medical history of IV drug use with heroin and multiple abscesses who presented with abrupt left neck pain. Patient stated that he felt achy in bis left shoulder yesterday. he stated it improved but woke up with the left neck and clavicle pain this morning. Pain is 10 out of 10 and worsens with any type of movement of the left neck or shoulder. Patient stated that his range of motion of the shoulder is limited secondary to the left clavicle neck pain. That he hasn't done any IV drugs for at least one year. denied any fevers or chills. All other review of system reviewed and negative. 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 Patient stated that his mom had lung cancer. Social History Deny any tobacco, alcohol, or recent illicit drug use. Stopped IV drug use with heroin one year ago. Physical Exam Vital Signs Vital Signs Date Time Temp Pulse Resp B/P (MAP) Pulse Ox O2 Delivery O2 Flow Rate FiO2 05/19/17 12:20 16 05/19/17 10:48 98.1 100 20 155/85 (108) 98 Physical Exam GENERAL: This is a well-nourished, well-developed patient, in no apparent distress. SKIN: No rashes, ecchymoses or lesions. Cool and dry. HEAD: Atraumatic. Normocephalic. No temporal or scalp tenderness. EYES: Pupils equal round and reactive. Extraocular motions intact. No scleral icterus. No injection or drainage. ENT: Nose without bleeding, purulent drainage or septal hematoma. Throat without erythema, tonsillar hypertrophy or exudate. Uvula midline. Airway patent. NECK: Trachea midline. No JVD or lymphadenopathy. Supple, no meningeal signs. Tenderness to palpation of the left clavicle and soft tissue neck area. No erythema noted or induration noted. Pain with movement of the left shoulder at the clavicle and . CARDIOVASCULAR: Regular rate and rhythm without murmurs, gallops, or rubs. RESPIRATORY: Clear to auscultation. Breath sounds equal bilaterally. No wheezes , rales, or rhonchi. GASTROINTESTINAL: Abdomen soft, non-tender, nondistended. No hepato-splenomegaly , or palpable masses. No guarding. MUSCULOSKELETAL: Extremities without clubbing, cyanosis, or edema. No joint tenderness, effusion, or edema noted. No calf tenderness. Negative Homans sign bilaterally. NEUROLOGICAL: Awake and alert. Cranial nerves II through XII intact. Motor and sensory grossly within normal limits. Five out of 5 muscle strength in all muscle groups. Normal speech. Laboratory Laboratory Tests Test 05/19/17 11:07 05/19/17 13:05 White Blood Count 12.5 Red Blood Count 4.41 Hemoglobin 12.8 Hematocrit 38.5 Mean Corpuscular Volume 87.2 Mean Corpuscular Hemoglobin 29.1 Mean Corpuscular Hemoglobin Concent 33.4 Red Cell Distribution Width 14.8 Platelet Count 274 Mean Platelet Volume 8.5 Neutrophils (%) (Auto) 85.3 Lymphocytes (%) (Auto) 7.2 Monocytes (%) (Auto) 6.8 Eosinophils (%) (Auto) 0.5 Basophils (%) (Auto) 0.2 Neutrophils # (Auto) 10.7 Lymphocytes # (Auto) 0.9 Monocytes # (Auto) 0.8 Eosinophils # (Auto) 0.1 Basophils # (Auto) 0.0 CBC Comment DIFF FINAL Differential Comment Erythrocyte Sedimentation Rate 66 Blood Urea Nitrogen 10 Creatinine 0.67 Random Glucose 114 Total Protein 8.1 Albumin 3.2 Calcium Level 8.5 Alkaline Phosphatase 70 Aspartate Amino Transf (AST/SGOT) 42 Alanine Aminotransferase (ALT/SGPT) 36 Total Bilirubin 0.7 Sodium Level 138 Potassium Level 4.3 Chloride Level 104 Carbon Dioxide Level 26.7 Anion Gap 7 Estimat Glomerular Filtration Rate 131 C-Reactive Protein 9.13 Lactic Acid Level 1.0 Date/Time Source Procedure Growth Status 05/19/17 13:05 Blood Peripheral Aerobic Blood Culture Pending Received 05/19/17 13:05 Blood Peripheral Anaerobic Blood Culture Pending Received Result Diagram: 05/19/17 1107 05/19/17 1107 Imaging Last Impressions Shoulder X-Ray 05/19/17 0000 Signed Impressions: Service Date/Time: April 11:16 - CONCLUSION: Unremarkable limited examination of the left shoulder. Js Cheung MD Neck CT 05/19/17 0000 Signed Impressions: Service Date/Time: April 12:30 - CONCLUSION: Normal examination. There is diffuse soft tissue edema left side of the neck compared to the right but no deep abscess or fluid is identified. Js Cheung MD Chest X-Ray 05/19/17 0000 Signed Impressions: Service Date/Time: April 11:15 - CONCLUSION: Normal examination. Left hemidiaphragm is slightly elevated. Js Cheung MD Chest CT 05/19/17 0000 Signed Impressions: Service Date/Time: Thursday, May 19, 2017 12:36 - CONCLUSION: Bronchiectasis and scarring in the right middle lobe medially. No concerning masses seen. No etiology for chest pain is identified. MD Soumya Santana VTE Risk Assessment Caprini VTE Risk Assessment: Mod/High Risk (score >= 2) Caprini Risk Assessment Model Point Value = 1 Point Value = 2 Point Value = 3 Point Value = 5 Age 41-60 Minor surgery BMI > 25 kg/m2 Swollen legs Varicose veins or History of unexplained or recurrent spontaneous Oral contraceptives or hormone replacement Sepsis (< 1 month) Serious lung disease, including pneumonia (< 1 month) Abnormal pulmonary function Acute myocardial infarction Congestive heart failure (< 1 month) History of inflammatory bowel disease Medical patient at bed rest Age 61-74 Arthroscopic surgery Major open surgery (> 45 min) Laparoscopic surgery (> 45 min) Malignancy Confined to bed (> 72 hours) Immobilizing plaster cast Central venous access Age >= 75 History of VTE Family history of VTE Factor V Leiden Prothrombin [id number] Lupus anticoagulant Anticardiolipin antibodies Elevated serum homocysteine Heparin-induced thrombocytopenia Other congenital or acquired thrombophilia Stroke (< 1 month) Elective arthroplasty Hip, pelvis, or leg fracture Acute spinal cord injury (< 1 month) Prophylaxis Regimen Total Risk Factor Score Risk Level Prophylaxis Regimen 0-1 Low Early ambulation 2 Moderate Order ONE of the following: *Sequential Compression Device (SCD) *Heparin 5000 units SQ BID 3-4 Higher Order ONE of the following medications: *Heparin 5000 units SQ TID *Enoxaparin/Lovenox 40 mg SQ daily (WT < 150 kg, CrCl > 30 mL/min) *Enoxaparin/Lovenox 30 mg SQ daily (WT < 150 kg, CrCl > 10-29 mL/min) *Enoxaparin/Lovenox 30 mg SQ BID (WT < 150 kg, CrCl > 30 mL/min) AND/OR *Sequential Compression Device (SCD) 5 or more Highest Order ONE of the following medications: *Heparin 5000 units SQ TID (Preferred with Epidurals) *Enoxaparin/Lovenox 40 mg SQ daily (WT < 150 kg, CrCl > 30 mL/min) *Enoxaparin/Lovenox 30 mg SQ daily (WT < 150 kg, CrCl > 10-29 mL/min) *Enoxaparin/Lovenox 30 mg SQ BID (WT < 150 kg, CrCl > 30 mL/min) AND *Sequential Compression Device (SCD) Assessment and Plan Assessment and Plan 41-year-old male with history of IV drug use who presented with left neck and clavicle pain Left neck and clavicle pain -CT scan showed edema, but no abscess. + leukocytosis around 12,000 with elevated CRP. -Concerning for infection due to leukocytosis and elevated CRP with history of IV drug use. -Start vancomycin. Will have pharmacy dose medication. Will get an MRI of neck soft tissue. Consult infectious disease. History of IV drug use -Patient stated he stopped using any drugs one year ago. We'll get a urine drug screen. DVT prophylaxis -Low risk. Encourage ambulation. SCDs. Discussed Condition With patient Thu Lechuga MD May 19, 2017 15:03
--- NOTE | 2017-05-19 16:58 | RADRPT ---
EXAM DATE/TIME: 05/19/2017 16:06 [place] COMPARISON: CT THORAX W CONTRAST, May 19, 2017, 12:36. CT SOFT TISSUE NECK W CONTRAST, May 19, 2017, 1 2:30. INDICATIONS : Abcess left neck. CONTRAST: 14 cc Omniscan (gadodiamide) IV MEDICAL HISTORY : None. SURGICAL HISTORY : Tracheostomy. ENCOUNTER: Initial ACUITY: 1 day PAIN SCORE: 9/10 LOCATION: Left clavicle. TECHNIQUE: Multisequence, multiplanar MRI examination was performed. FINDINGS: There is a low-grade soft tissue edema and enhancement along the undersurface of the left clavicle. T here does appear to be some edema along the course of the pectoralis minor muscle. There may be some edema extending around the posterior margin of the clavicle. It is lateral to the cleidomanubrial kiran nt. On the T2 images I do not see a drainable abscess. There some low-grade enhancement around the cl avicle and along the origin of the pectoralis muscle. I do not see or drainable abscess. The clavicle is itself unremarkable. In retrospect there is a small amount of edema posterior to clavicle on the chest CT but minimal. MRI shows it much better. CONCLUSION: Low-grade edema along the undersurface and the posterior margin of the medial left clavicle including some edema in the pectoralis minor muscle. There is no drainable abscess. There may be a small supra clavicular node measuring 9 x 12 mm. I don't see any abnormal edema in the cleidomanubrial joint the clavicle or the lung itself. Js Cheung MD on May 19, 2017 at 16:52 Board Certified Radiologist. This report was verified electronically.
[2017-05-19 17:11] VITALS: BP 133/75; PULSE 75; RESP 20; TEMP 98.4; O2SAT 97
[2017-05-19] MEDS: oxyCODONE/ACETAMINOPHEN 5 MG/325 MG TAB PO PRN ×2 (17:34→22:02)
--- NOTE | 2017-05-19 20:16 | HHI.PR ---
Addendum to Inpatient Note Additional Information pt seen earlier today full note to follow Tara Perez MD May 19, 2017 20:16
--- NOTE | 2017-05-19 20:17 | PD.ID.CON ---
History of Present Illness Service ID Consult Requested By Dr Lechuga Reason for Consult IVDU and neck abscess Primary Care Physician Unknown Diagnoses: History of Present Illness 41 yo male presented with painful lesions for few days on the back of his neck He states its a recurrent problem and he has hg/l frequnt MRSA skin infections some required I+D Pt had CT of the neck and it did not show any abscess Pt is afebrile, has midly elevated WBC and quite highe ESR Pr was started on abx He thinks he improved Review of Systems Except as stated in HPI: all other systems reviewed are Neg Past Family Social History Allergies: Coded Allergies: Sulfa (Sulfonamide Antibiotics) (Unverified Allergy, Severe, Rash, 01/11/17 ) sulfamethoxazole (Unverified Allergy, Severe, RASH, 01/11/17) trimethoprim (Unverified Allergy, Severe, RASH, 01/11/17) *MDRO Multi-Drug Resistant Organism (Verified Adverse Reaction, Unknown, ) 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 Patient stated that his mom had lung cancer. Social History Deny any tobacco, alcohol, or recent illicit drug use. Stopped IV drug use with heroin one year ago. Physical Exam Vital Signs Vital Signs Date Time Temp Pulse Resp B/P (MAP) Pulse Ox O2 Delivery O2 Flow Rate FiO2 05/19/17 18:39 16 05/19/17 17:11 98.4 75 20 133/75 (94) 97 05/19/17 12:20 16 05/19/17 10:48 98.1 100 20 155/85 (108) 98 Physical Exam CONSTITUTIONAL/GENERAL: This is an adequately nourished patient, in no apparent distress. TUBES/LINES/DRAINS: SKIN: No jaundice, rashes, or lesions. He has couple tender skin lesions on the back of his neckSkin temperature appropriate. Not diaphoretic. HEAD: Atraumatic. Normocephalic. EYES: Pupils equal and round and reactive. Extraocular motions intact. No scleral icterus. No injection or drainage. Fundi not examined. ENT: Hearing grossly normal. Nose without bleeding or purulent drainage. Throat without visible erythema, exudates, masses, or lesions. NECK: Trachea midline. Supple, nontender. No palpable thyroid enlargement or nodularity. CARDIOVASCULAR: Regular rate and rhythm without murmurs, gallops, or rubs. No JVD. Peripheral pulses symmetric. RESPIRATORY/CHEST: Symmetric, unlabored respirations. Clear to auscultation. Breath sounds equal bilaterally. No wheezes, rales, or rhonchi. GASTROINTESTINAL: Abdomen soft, non-tender, nondistended. No hepato-splenomegaly , or palpable masses. No guarding. Bowel sounds present. GENITOURINARY: Without palpable bladder distension. MUSCULOSKELETAL: Extremities without clubbing, cyanosis, or edema. No joint tenderness or effusion noted. No calf tenderness. No mottling or clubbing. LYMPHATICS: + palpable somewhat tender L lateral cervical adenopathy. No supraclavicular adenopathy NEUROLOGICAL: Awake and alert. Motor and sensory grossly within normal limits. Follows commands. Clear speech. Moves all extremities. PSYCHIATRIC: No obvious anxiety/depression. no apparent hallucinations or other psychotic thought process. Laboratory Laboratory Tests Test 05/19/17 11:07 05/19/17 13:05 White Blood Count 12.5 Red Blood Count 4.41 Hemoglobin 12.8 Hematocrit 38.5 Mean Corpuscular Volume 87.2 Mean Corpuscular Hemoglobin 29.1 Mean Corpuscular Hemoglobin Concent 33.4 Red Cell Distribution Width 14.8 Platelet Count 274 Mean Platelet Volume 8.5 Neutrophils (%) (Auto) 85.3 Lymphocytes (%) (Auto) 7.2 Monocytes (%) (Auto) 6.8 Eosinophils (%) (Auto) 0.5 Basophils (%) (Auto) 0.2 Neutrophils # (Auto) 10.7 Lymphocytes # (Auto) 0.9 Monocytes # (Auto) 0.8 Eosinophils # (Auto) 0.1 Basophils # (Auto) 0.0 CBC Comment DIFF FINAL Differential Comment Erythrocyte Sedimentation Rate 66 Blood Urea Nitrogen 10 Creatinine 0.67 Random Glucose 114 Total Protein 8.1 Albumin 3.2 Calcium Level 8.5 Alkaline Phosphatase 70 Aspartate Amino Transf (AST/SGOT) 42 Alanine Aminotransferase (ALT/SGPT) 36 Total Bilirubin 0.7 Sodium Level 138 Potassium Level 4.3 Chloride Level 104 Carbon Dioxide Level 26.7 Anion Gap 7 Estimat Glomerular Filtration Rate 131 C-Reactive Protein 9.13 Lactic Acid Level 1.0 Date/Time Source Procedure Growth Status 05/19/17 14:40 Blood Peripheral Aerobic Blood Culture Pending Received 05/19/17 14:40 Blood Peripheral Anaerobic Blood Culture Pending Received Result Diagram: 05/19/17 1107 05/19/17 1107 Imaging Last Impressions Soft Tissue MRI 05/19/17 0000 Signed Impressions: Service Date/Time: April 16:06 - CONCLUSION: Low-grade edema along the undersurface and the posterior margin of the medial left clavicle including some edema in the pectoralis minor muscle. There is no drainable abscess. There may be a small supraclavicular node measuring 9 x 12 mm. I don't see any abnormal edema in the cleidomanubrial joint the clavicle or the lung itself. Js Cheung MD Shoulder X-Ray 05/19/17 0000 Signed Impressions: Service Date/Time: April 11:16 - CONCLUSION: Unremarkable limited examination of the left shoulder. Js Cheung MD Neck CT 05/19/17 0000 Signed Impressions: Service Date/Time: April 12:30 - CONCLUSION: Normal examination. There is diffuse soft tissue edema left side of the neck compared to the right but no deep abscess or fluid is identified. Js Cheung MD Chest X-Ray 05/19/17 0000 Signed Impressions: Service Date/Time: April 11:15 - CONCLUSION: Normal examination. Left hemidiaphragm is slightly elevated. Js Cheung MD Chest CT 05/19/17 0000 Signed Impressions: Service Date/Time: April 12:36 - CONCLUSION: Bronchiectasis and scarring in the right middle lobe medially. No concerning masses seen. No etiology for chest pain is identified. Js Cheung MD Assessment and Plan Discussed Condition With Neck pain Small superficial skin abscess of the neck h/o IVDU MRI of the Cspine to r/o diskitis/osteo or epidural abscess cont vancomycin Tara Perez MD May 19, 2017 20:16
[2017-05-19 21:30] VITALS: BP 98/56; PULSE 80; RESP 16; TEMP 98.6; O2SAT 96
[2017-05-19] MEDS: DOCUSATE SODIUM 50 MG/SENNA 8.6 MG TAB PO SCH (22:02)
[2017-05-19] MEDS: SODIUM CHLORIDE 0.9% FLUSH 10 ML FLUSH IV FLUSH SCH (22:02)
[2017-05-19] MEDS: VANCOMYCIN INJ 1,500 MG in SODIUM CHLORID 0.9% 500 ML INJ 500 ML IV SCH (23:45)
[2017-05-20 00:06] VITALS: BP 110/56; PULSE 66; RESP 16; TEMP 98.5; O2SAT 94
[2017-05-20] MEDS: oxyCODONE/ACETAMINOPHEN 5 MG/325 MG TAB PO PRN ×6 (02:15→21:37)
[2017-05-20] MEDS: SODIUM CHLOR 0.45% 1000 ML INJ 1,000 ML IV SCH ×2 (04:20→12:36)
[2017-05-20 05:51] VITALS: BP 144/81; PULSE 89; RESP 18; TEMP 97.9; O2SAT 94
[2017-05-20 07:41] VITALS: BP 133/78; PULSE 69; RESP 20; TEMP 97.8; O2SAT 94
[2017-05-20] MEDS: DOCUSATE SODIUM 50 MG/SENNA 8.6 MG TAB PO SCH ×2 (08:22→19:39)
[2017-05-20] MEDS: SODIUM CHLORIDE 0.9% FLUSH 10 ML FLUSH IV FLUSH SCH ×2 (08:22→19:39)
[2017-05-20] MEDS: VANCOMYCIN INJ 1,500 MG in SODIUM CHLORID 0.9% 500 ML INJ 500 ML IV SCH (10:21)
--- NOTE | 2017-05-20 10:41 | HHI.IDPN ---
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 Vital Signs Date Time Temp Pulse Resp B/P (MAP) Pulse Ox O2 Delivery O2 Flow Rate FiO2 05/20/17 07:41 97.8 69 20 133/78 (96) 94 05/20/17 07:29 18 05/20/17 05:51 97.9 89 18 144/81 (102) 94 05/20/17 00:06 98.5 66 16 110/56 (74) 94 05/19/17 21:30 98.6 80 16 98/56 (70) 96 05/19/17 17:11 98.4 75 20 133/75 (94) 97 05/19/17 12:20 16 05/19/17 10:48 98.1 100 20 155/85 (108) 98 05/20/17 05/20/17 05/21/17 15:00 23:00 07:00 Output Total 620 ml Balance -620 ml Output Urine Total 620 ml . Laboratory Tests Test 05/19/17 11:07 White Blood Count 12.5 TH/MM3 Red Blood Count 4.41 MIL/MM3 Hemoglobin 12.8 GM/DL Hematocrit 38.5 % Mean Corpuscular Volume 87.2 FL Mean Corpuscular Hemoglobin 29.1 PG Mean Corpuscular Hemoglobin Concent 33.4 % Red Cell Distribution Width 14.8 % Platelet Count 274 TH/MM3 Mean Platelet Volume 8.5 FL Neutrophils (%) (Auto) 85.3 % Lymphocytes (%) (Auto) 7.2 % Monocytes (%) (Auto) 6.8 % Eosinophils (%) (Auto) 0.5 % Basophils (%) (Auto) 0.2 % Neutrophils # (Auto) 10.7 TH/MM3 Lymphocytes # (Auto) 0.9 TH/MM3 Monocytes # (Auto) 0.8 TH/MM3 Eosinophils # (Auto) 0.1 TH/MM3 Basophils # (Auto) 0.0 TH/MM3 CBC Comment DIFF FINAL Differential Comment Erythrocyte Sedimentation Rate 66 mm/hr Laboratory Tests Test 05/19/17 11:07 05/19/17 13:05 Blood Urea Nitrogen 10 MG/DL Creatinine 0.67 MG/DL Random Glucose 114 MG/DL Total Protein 8.1 GM/DL Albumin 3.2 GM/DL Calcium Level 8.5 MG/DL Alkaline Phosphatase 70 U/L Aspartate Amino Transf (AST/SGOT) 42 U/L Alanine Aminotransferase (ALT/SGPT) 36 U/L Total Bilirubin 0.7 MG/DL Sodium Level 138 MEQ/L Potassium Level 4.3 MEQ/L Chloride Level 104 MEQ/L Carbon Dioxide Level 26.7 MEQ/L Anion Gap 7 MEQ/L Estimat Glomerular Filtration Rate 131 ML/MIN C-Reactive Protein 9.13 MG/DL Lactic Acid Level 1.0 mmol/L Microbiology Date/Time Source Procedure Growth Status 05/19/17 14:40 Blood Peripheral Aerobic Blood Culture Pending Resulted 05/19/17 14:40 Anaerobic Blood Culture - Preliminary Gram Negative Bradley Resulted 05/19/17 13:05 Blood Peripheral Aerobic Blood Culture - Preliminary Gram Negative Bradley Resulted 05/19/17 13:05 Blood Peripheral Anaerobic Blood Culture Pending Resulted Imaging Last Impressions Soft Tissue MRI 05/19/17 0000 Signed Impressions: Service Date/Time: April 16:06 - CONCLUSION: Low-grade edema along the undersurface and the posterior margin of the medial left clavicle including some edema in the pectoralis minor muscle. There is no drainable abscess. There may be a small supraclavicular node measuring 9 x 12 mm. I don't see any abnormal edema in the cleidomanubrial joint the clavicle or the lung itself. Js Cheung MD Shoulder X-Ray 05/19/17 0000 Signed Impressions: Service Date/Time: April 11:16 - CONCLUSION: Unremarkable limited examination of the left shoulder. Js Cheung MD Neck CT 05/19/17 0000 Signed Impressions: Service Date/Time: April 12:30 - CONCLUSION: Normal examination. There is diffuse soft tissue edema left side of the neck compared to the right but no deep abscess or fluid is identified. Js Cheung MD Chest X-Ray 05/19/17 0000 Signed Impressions: Service Date/Time: April 11:15 - CONCLUSION: Normal examination. Left hemidiaphragm is slightly elevated. Js Cheung MD Chest CT 05/19/17 0000 Signed Impressions: Service Date/Time: April 12:36 - CONCLUSION: Bronchiectasis and scarring in the right middle lobe medially. No concerning masses seen. No etiology for chest pain is identified. Js Cheung MD Physical Exam CONSTITUTIONAL/GENERAL: This is an adequately nourished patient, in no apparent distress. TUBES/LINES/DRAINS: SKIN: No jaundice, rashes, or lesions. HEAD: Atraumatic. Normocephalic. EYES: Pupils equal and round and reactive. Extraocular motions intact. No scleral icterus. No injection or drainage. Fundi not examined. ENT: Hearing grossly normal. Nose without bleeding or purulent drainage. Throat without visible erythema, exudates, masses, or lesions. NECK: Trachea midline. + tender to palpatio. Decreased ROM noted . No palpable thyroid enlargement or nodularity. CARDIOVASCULAR: Regular rate and rhythm without murmurs, gallops, or rubs. No JVD. Peripheral pulses symmetric. RESPIRATORY/CHEST: Symmetric, unlabored respirations. Clear to auscultation. Breath sounds equal bilaterally. No wheezes, rales, or rhonchi. GASTROINTESTINAL: Abdomen soft, non-tender, nondistended. No hepato-splenomegaly , or palpable masses. No guarding. Bowel sounds present. GENITOURINARY: Without palpable bladder distension. MUSCULOSKELETAL: Extremities without clubbing, cyanosis, or edema. No joint tenderness or effusion noted. No calf tenderness. No mottling or clubbing. LYMPHATICS: + palpable somewhat tender L lateral cervical adenopathy. No supraclavicular adenopathy NEUROLOGICAL: Awake and alert. Motor and sensory grossly within normal limits. Follows commands. Clear speech. Moves all extremities. PSYCHIATRIC: No obvious anxiety/depression. no apparent hallucinations or other psychotic thought process. Assessment & Plan Remarks Neck pain, GNBbacteremia, IVDU (claims 1 yr ago) Highly suspicious for diskitis/osteo even early epidural abscess (PSAE?) - dc vanncomycin start cefepime, levaquine MRI w IV contrast Tara Perez MD May 20, 2017 10:41
[2017-05-20 11:33] VITALS: BP 124/77; PULSE 84; RESP 20; TEMP 97.7; O2SAT 97
[2017-05-20] MEDS: LEVOFLOXACIN 750 MG TAB PO SCH (12:36)
[2017-05-20] MEDS: CEFEPIME INJ 2,000 MG in SODIUM CHLORIDE 0.9% INJ 100 ML IV SCH ×2 (12:36→19:38)
--- NOTE | 2017-05-20 12:49 | RADRPT ---
EXAM DATE/TIME: 05/20/2017 11:24 [facility] COMPARISON: No previous studies available for comparison. INDICATIONS : Severe neck pain with no injury. History of MRSA. CONTRAST: 14 cc Omniscan (gadodiamide) IV MEDICAL HISTORY : Methicillin-resistant Staphylococcus aureus. SURGICAL HISTORY : Tracheostomy ENCOUNTER: Subsequent ACUITY: 3 day PAIN SCORE: 4/10 LOCATION: neck TECHNIQUE: Multiplanar, multisequence MRI examination of the cervical spine was performed. FINDINGS: See MRI of the soft tissues of the neck reported separately. VERTEBRAE: Normal vertebral body height. Homogeneous marrow signal. ALIGNMENT: No evidence of subluxation. CORD: Normal configuration and signal. POST FOSSA: The cerebellar tonsils are normal in position. POST-CONTRAST: No abnormal areas of enhancement are seen. C2-C3: The thecal sac has a normal configuration. There is no evidence of disc herniation or spinal canal stenosis. The neural foramina are patent bilaterally. C3-C4: There is disc desiccation with a mild broad-based bulge. No abutment of the cord. Lateral recesses an d neural foramen are patent. C4-C5: There is disc desiccation with a mild broad-based bulge. No abutment of the cord. Lateral recesses an d neural foramen are patent. C5-C6: There is disc desiccation with a mild broad-based bulge. No abutment of the cord. Lateral recesses an d neural foramen are patent. C6-C7: The thecal sac has a normal configuration. There is no evidence of disc herniation or spinal canal s tenosis. The neural foramina are patent bilaterally. C7-T1: The thecal sac has a normal configuration. There is no evidence of disc herniation or spinal canal s tenosis. The neural foramina are patent bilaterally. CONCLUSION: 1. Please see the MRI of the soft tissues of the neck reported separately. 2. No MRI evidence to suggest osteomyelitis of the cervical spine. 3. Multilevel degenerative changes without central canal stenosis or neural impingement. Eugene Tam Jr., MD on May 20, 2017 at 12:19 Board Certified Radiologist. This report was verified electronically.
[2017-05-20 14:06] LABS: HEMATOCRIT 35.1 % (39.0-51.0); HEMOGLOBIN 12.5 GM/DL (13.0-17.0); MEAN CELL VOLUME 86.3 FL (80.0-100.0); MEAN CORPUSCULAR HEMOGLOBIN 30.7 PG (27.0-34.0); MEAN CORPUSCULAR HGB CONC 35.5 % (32.0-36.0); MEAN PLATELET VOLUME 8.9 FL (7.0-11.0); PLATELET COUNT 235 TH/MM3 (150-450); RED BLOOD COUNT 4.07 MIL/MM3 (4.50-5.90); RED CELL DISTRIBUTION WIDTH 14.2 % (11.6-17.2); WHITE BLOOD COUNT 10.2 TH/MM3 (4.0-11.0)
[2017-05-20 14:28] LABS: BICARBONATE 26.9 MEQ/L (21.0-32.0); CALCIUM 7.9 MG/DL (8.5-10.1); CREATININE 0.67 MG/DL (0.60-1.30)
[2017-05-20 15:40] VITALS: BP 122/77; PULSE 74; RESP 20; TEMP 98; O2SAT 96
--- NOTE | 2017-05-20 15:42 | HHI.PR ---
Subjective Remarks Patient seen this morning around 10 AM. Reports the pain continues. Denies any chest pain or shortness of breath. Denies any nausea or vomiting. Objective Vital Signs Date Time Temp Pulse Resp B/P (MAP) Pulse Ox O2 Delivery O2 Flow Rate FiO2 05/20/17 11:33 97.7 84 20 124/77 (93) 97 05/20/17 07:41 97.8 69 20 133/78 (96) 94 05/20/17 07:29 18 05/20/17 05:51 97.9 89 18 144/81 (102) 94 05/20/17 00:06 98.5 66 16 110/56 (74) 94 05/19/17 21:30 98.6 80 16 98/56 (70) 96 05/19/17 17:11 98.4 75 20 133/75 (94) 97 I/O 05/19/17 05/19/17 05/19/17 05/20/17 05/20/17 05/20/17 07:00 15:00 23:00 07:00 15:00 23:00 Intake Total 1165 ml 490 ml Output Total 620 ml Balance 1165 ml -130 ml Intake IV Total 1165 ml 490 ml Output Urine Total 620 ml # Voids 0 # Bowel Movements 0 Result Diagram: 05/20/17 1330 05/20/17 1330 Objective Remarks GENERAL: patient sitting up in bed. Appears comfortable. Alert and oriented 3. SKIN: Warm and dry. HEAD: Normocephalic. EYES: No scleral icterus. No injection or drainage. NECK: Supple, trachea midline. No JVD. CARDIOVASCULAR: Regular rate and rhythm without murmurs, gallops, or rubs. RESPIRATORY: Breath sounds equal bilaterally. No accessory muscle use. GASTROINTESTINAL: Abdomen soft, non-tender, nondistended. MUSCULOSKELETAL: No cyanosis, or edema. BACK: Nontender without obvious deformity. No CVA tenderness. A/P Assessment and Plan 41-year-old male with history of IV drug use who presented with left neck and clavicle pain //Left neck and clavicle pain //Gram-negative bacteremia -CT scan showed edema, but no abscess. + leukocytosis around 12,000 with elevated CRP. -Concerning for infection due to leukocytosis and elevated CRP with history of IV drug use. = MRI without evidence of osteomyelitis. Continue antibiotics as per infectious disease. Gram-negative's on both blood cultures. Repeat cultures. Continue antibiotics as per infectious disease. Follow-up repeat cultures //History of IV drug use -Patient stated he stopped using any drugs one year ago. We'll get a urine drug screen. DVT prophylaxis -Low risk. Encourage ambulation. SCDs. Discharge Planning gram-negative bacteremia. Repeat blood cultures pending. sensitivities pending. We'll need ID clearance. Vipin Victoria MD May 20, 2017 15:42
[2017-05-20 20:00] VITALS: BP 137/88; PULSE 82; RESP 18; TEMP 98.6; O2SAT 95
[2017-05-21] VITALS: BP_SYST 137; PULSE 75; RESP 18; TEMP 98; O2SAT 96
[2017-05-21] MEDS: oxyCODONE/ACETAMINOPHEN 5 MG/325 MG TAB PO PRN ×6 (01:33→22:08)
[2017-05-21] MEDS: CEFEPIME INJ 2,000 MG in SODIUM CHLORIDE 0.9% INJ 100 ML IV SCH ×3 (03:42→22:09)
[2017-05-21 04:00] VITALS: BP 130/84; PULSE 75; RESP 18; TEMP 98.1; O2SAT 93
[2017-05-21] MEDS: SODIUM CHLOR 0.45% 1000 ML INJ 1,000 ML IV SCH ×2 (04:55→22:17)
[2017-05-21 07:59] VITALS: BP 138/85; PULSE 69; RESP 18; TEMP 97.9; O2SAT 96
[2017-05-21] MEDS: SODIUM CHLORIDE 0.9% FLUSH 10 ML FLUSH IV FLUSH SCH ×2 (08:09→21:00)
[2017-05-21] MEDS: LEVOFLOXACIN 750 MG TAB PO SCH (08:10)
[2017-05-21] MEDS: DOCUSATE SODIUM 50 MG/SENNA 8.6 MG TAB PO SCH ×2 (08:10→21:00)
--- NOTE | 2017-05-21 09:09 | HHI.PR ---
Subjective Remarks In nad, appears in no acute distress. Asking for more pain meds. No sob, n/v/d/ c. Objective Vitals Vital Signs Date Time Temp Pulse Resp B/P (MAP) Pulse Ox O2 Delivery O2 Flow Rate FiO2 05/21/17 07:59 97.9 69 18 138/85 (102) 96 05/21/17 06:26 18 05/21/17 04:00 98.1 75 18 130/84 (99) 93 05/21/17 00:00 98.0 75 18 137/ 96 05/20/17 20:00 98.6 82 18 137/88 (104) 95 05/20/17 15:40 98.0 74 20 122/77 (92) 96 05/20/17 11:33 97.7 84 20 124/77 (93) 97 I/O 05/20/17 05/20/17 05/20/17 05/21/17 05/21/17 05/21/17 07:00 15:00 23:00 07:00 15:00 23:00 Intake Total 1165 ml 1210 ml 683 ml 1586 ml Output Total 620 ml 850 ml 900 ml 2000 ml Balance 1165 ml 590 ml -167 ml 686 ml -2000 ml Intake Oral 720 ml IV Total 1165 ml 490 ml 683 ml 1586 ml Output Urine Total 620 ml 850 ml 900 ml 2000 ml # Voids 0 1 # Bowel Movements 0 0 Result Diagram: 05/20/17 1330 05/20/17 1330 Imaging Last Impressions Cervical Spine MRI 05/20/17 1037 Signed Impressions: Service Date/Time: Saturday, May 20, 2017 11:24 - CONCLUSION: 1. Please see the MRI of the soft tissues of the neck reported separately. 2. No MRI evidence to suggest osteomyelitis of the cervical spine. 3. Multilevel degenerative changes without central canal stenosis or neural impingement. Eugene Tam Jr., MD Soft Tissue MRI 05/19/17 0000 Signed Impressions: Service Date/Time: April 16:06 - CONCLUSION: Low-grade edema along the undersurface and the posterior margin of the medial left clavicle including some edema in the pectoralis minor muscle. There is no drainable abscess. There may be a small supraclavicular node measuring 9 x 12 mm. I don't see any abnormal edema in the cleidomanubrial joint the clavicle or the lung itself. Js Cheung MD Shoulder X-Ray 05/19/17 0000 Signed Impressions: Service Date/Time: April 11:16 - CONCLUSION: Unremarkable limited examination of the left shoulder. Js Cheung MD Neck CT 05/19/17 0000 Signed Impressions: Service Date/Time: April 12:30 - CONCLUSION: Normal examination. There is diffuse soft tissue edema left side of the neck compared to the right but no deep abscess or fluid is identified. Js Cheung MD Chest X-Ray 05/19/17 0000 Signed Impressions: Service Date/Time: April 11:15 - CONCLUSION: Normal examination. Left hemidiaphragm is slightly elevated. Js Cheung MD Chest CT 05/19/17 0000 Signed Impressions: Service Date/Time: April 12:36 - CONCLUSION: Bronchiectasis and scarring in the right middle lobe medially. No concerning masses seen. No etiology for chest pain is identified. Js Cheung MD Objective Remarks GENERAL: patient sitting up in bed. Appears comfortable. Alert and oriented 3. NECK: Supple, trachea midline. No JVD. CARDIOVASCULAR: Regular rate and rhythm without murmurs, gallops, or rubs. RESPIRATORY: Breath sounds equal bilaterally. No accessory muscle use. GASTROINTESTINAL: Abdomen soft, non-tender, nondistended. MUSCULOSKELETAL: No cyanosis, or edema. BACK: Nontender without obvious deformity. No CVA tenderness. A/P Assessment and Plan 41-year-old male with history of IV drug use who presented with left neck and clavicle pain Left neck and clavicle pain Gram-negative bacteremia -CT scan showed edema, but no abscess. + leukocytosis around 12,000 with elevated CRP. -Concerning for infection due to leukocytosis and elevated CRP with history of IV drug use. -MRI without evidence of osteomyelitis. Continue antibiotics as per infectious disease. Gram-negative's on both blood cultures. Repeat cultures. Continue antibiotics as per infectious disease. Follow-up repeat cultures -Repeat blood cultures 05/21/17 NTD History of IV drug use -Patient stated he stopped using any drugs one year ago. We'll get a urine drug screen. DVT prophylaxis -Low risk. Encourage ambulation. SCDs. Discharge Planning Gram-negative bacteremia. Repeat blood cultures pending. sensitivities pending. We'll need ID clearance. Samia Malik MD May 21, 2017 09:09
[2017-05-21] MEDS ORDERED: PHARMACY ORDERED LAB ONE (10:45)
[2017-05-21 11:51] VITALS: BP 119/76; PULSE 71; RESP 18; TEMP 97.4; O2SAT 95
[2017-05-21 15:46] VITALS: BP 129/84; PULSE 72; RESP 18; TEMP 97.4; O2SAT 96
[2017-05-21 20:00] VITALS: BP 144/84; PULSE 66; RESP 22; TEMP 99; O2SAT 97
[2017-05-22] VITALS: BP 125/77; PULSE 78; RESP 20; TEMP 98.9; O2SAT 94
[2017-05-22] MEDS: oxyCODONE/ACETAMINOPHEN 5 MG/325 MG TAB PO PRN ×5 (03:37→21:00)
[2017-05-22 04:00] VITALS: BP 142/72; PULSE 67; RESP 16; TEMP 98.1; O2SAT 96
[2017-05-22] MEDS: CEFEPIME INJ 2,000 MG in SODIUM CHLORIDE 0.9% INJ 100 ML IV SCH ×3 (04:21→20:44)
[2017-05-22] MEDS: DOCUSATE SODIUM 50 MG/SENNA 8.6 MG TAB PO SCH ×2 (07:58→20:45)
[2017-05-22] MEDS: SODIUM CHLORIDE 0.9% FLUSH 10 ML FLUSH IV FLUSH SCH ×2 (07:59→20:45)
[2017-05-22] MEDS: LEVOFLOXACIN 750 MG TAB PO SCH (07:59)
[2017-05-22 08:05] VITALS: BP 126/81; PULSE 61; RESP 16; TEMP 98; O2SAT 95
[2017-05-22] MEDS: SODIUM CHLOR 0.45% 1000 ML INJ 1,000 ML IV SCH ×2 (08:10→23:00)
--- NOTE | 2017-05-22 08:38 | HHI.PR ---
Subjective Remarks Follow up left neck/clavicle pain. Patient reporting that the pain seems to be worsening and is now involving the left pectoralis muscle. No fever/chills. Denies chest pain, dyspnea, nausea, vomiting. Objective Vitals Vital Signs Date Time Temp Pulse Resp B/P (MAP) Pulse Ox O2 Delivery O2 Flow Rate FiO2 05/22/17 08:05 98.0 61 16 126/81 (96) 95 05/22/17 04:00 98.1 67 16 142/72 (95) 96 05/22/17 00:00 98.9 78 20 125/77 (93) 94 05/21/17 20:00 99.0 66 22 144/84 (104) 97 05/21/17 15:46 97.4 72 18 129/84 (99) 96 05/21/17 11:51 97.4 71 18 119/76 (90) 95 I/O 05/21/17 05/21/17 05/21/17 05/22/17 05/22/17 05/22/17 07:00 15:00 23:00 07:00 15:00 23:00 Intake Total 1586 ml 340 ml 100 ml 100 ml 958 ml Output Total 900 ml 2000 ml 2300 ml Balance 686 ml -1660 ml 100 ml -2200 ml 958 ml Intake Oral 240 ml IV Total 1586 ml 100 ml 100 ml 100 ml 958 ml Output Urine Total 900 ml 2000 ml 2300 ml # Voids 3 Result Diagram: 05/20/17 1330 05/20/17 1330 Imaging Last Impressions Cervical Spine MRI 05/20/17 1037 Signed Impressions: Service Date/Time: Saturday, May 20, 2017 11:24 - CONCLUSION: 1. Please see the MRI of the soft tissues of the neck reported separately. 2. No MRI evidence to suggest osteomyelitis of the cervical spine. 3. Multilevel degenerative changes without central canal stenosis or neural impingement. Eugene Tam Jr., MD Soft Tissue MRI 05/19/17 0000 Signed Impressions: Service Date/Time: April 16:06 - CONCLUSION: Low-grade edema along the undersurface and the posterior margin of the medial left clavicle including some edema in the pectoralis minor muscle. There is no drainable abscess. There may be a small supraclavicular node measuring 9 x 12 mm. I don't see any abnormal edema in the cleidomanubrial joint the clavicle or the lung itself. Js Cheung MD Shoulder X-Ray 05/19/17 0000 Signed Impressions: Service Date/Time: April 11:16 - CONCLUSION: Unremarkable limited examination of the left shoulder. Js Cheung MD Neck CT 05/19/17 0000 Signed Impressions: Service Date/Time: April 12:30 - CONCLUSION: Normal examination. There is diffuse soft tissue edema left side of the neck compared to the right but no deep abscess or fluid is identified. Js Cheung MD Chest X-Ray 05/19/17 0000 Signed Impressions: Service Date/Time: April 11:15 - CONCLUSION: Normal examination. Left hemidiaphragm is slightly elevated. Js Cheung MD Chest CT 05/19/17 0000 Signed Impressions: Service Date/Time: April 12:36 - CONCLUSION: Bronchiectasis and scarring in the right middle lobe medially. No concerning masses seen. No etiology for chest pain is identified. Js Cheung MD Objective Remarks General: No acute distress. Heart: Regular rate and rhythm. No murmur. Chest wall: Tenderness over the upper left enterolysis and left clavicle. No overlying erythema. No wounds noted. Lungs: Clear to auscultation bilaterally. No wheezes, rales, or rhonchi. Breathing is nonlabored. Abdomen: Soft, nontender, nondistended. Extremities: No lower extremity edema. Psych: Alert and oriented. Procedures None Urinary Catheter: No Vascular Central Line Catheter: No A/P Assessment and Plan 1. Left neck and clavicle pain: CT shows edema, but no apparent abscess. Continue pain control, using caution opiates due to history of IV drug abuse. 2. Gram-negative bacteremia: Repeat blood cultures are pending. Appreciate infectious disease recommendations. Echocardiogram ordered to evaluate for valvular vegetations. Continue antibiotics. Leukocytosis has resolved. 3. History of IV drug abuse: Patient has stated that he stopped using drugs one year ago. 4. DVT prophylaxis: Ambulation, SCDs. Geovanny Payton MD May 22, 2017 08:38
[2017-05-22 11:45] VITALS: BP 120/79; PULSE 71; RESP 16; TEMP 97.7; O2SAT 96
[2017-05-22 15:49] VITALS: BP 129/88; PULSE 73; RESP 18; TEMP 98.3; O2SAT 96
--- NOTE | 2017-05-22 19:06 | HHI.IDPN ---
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 Vital Signs Date Time Temp Pulse Resp B/P (MAP) Pulse Ox O2 Delivery O2 Flow Rate FiO2 05/22/17 15:49 98.3 73 18 129/88 (102) 96 05/22/17 11:45 97.7 71 16 120/79 (93) 96 05/22/17 08:05 98.0 61 16 126/81 (96) 95 05/22/17 04:00 98.1 67 16 142/72 (95) 96 05/22/17 00:00 98.9 78 20 125/77 (93) 94 05/21/17 20:00 99.0 66 22 144/84 (104) 97 05/22/17 05/22/17 05/23/17 15:00 23:00 07:00 Intake Total 1438 ml Balance 1438 ml Intake Oral 480 ml IV Total 958 ml # Voids 2 . Microbiology Date/Time Source Procedure Growth Status 05/21/17 03:25 Blood Peripheral Aerobic Blood Culture - Preliminary NO GROWTH IN 1 DAY Resulted 05/21/17 03:25 Blood Peripheral Anaerobic Blood Culture - Preliminary NO GROWTH IN 1 DAY Resulted 05/21/17 03:20 Blood Peripheral Aerobic Blood Culture - Preliminary NO GROWTH IN 1 DAY Resulted 05/21/17 03:20 Blood Peripheral Anaerobic Blood Culture - Preliminary NO GROWTH IN 1 DAY Resulted Imaging Last Impressions Cervical Spine MRI 05/20/17 1037 Signed Impressions: Service Date/Time: Saturday, May 20, 2017 11:24 - CONCLUSION: 1. Please see the MRI of the soft tissues of the neck reported separately. 2. No MRI evidence to suggest osteomyelitis of the cervical spine. 3. Multilevel degenerative changes without central canal stenosis or neural impingement. Eugene Tam Jr., MD Soft Tissue MRI 05/19/17 0000 Signed Impressions: Service Date/Time: April 16:06 - CONCLUSION: Low-grade edema along the undersurface and the posterior margin of the medial left clavicle including some edema in the pectoralis minor muscle. There is no drainable abscess. There may be a small supraclavicular node measuring 9 x 12 mm. I don't see any abnormal edema in the cleidomanubrial joint the clavicle or the lung itself. Js Cheung MD Shoulder X-Ray 05/19/17 0000 Signed Impressions: Service Date/Time: April 11:16 - CONCLUSION: Unremarkable limited examination of the left shoulder. Js Cheung MD Neck CT 05/19/17 0000 Signed Impressions: Service Date/Time: April 12:30 - CONCLUSION: Normal examination. There is diffuse soft tissue edema left side of the neck compared to the right but no deep abscess or fluid is identified. Js Cheung MD Chest X-Ray 05/19/17 0000 Signed Impressions: Service Date/Time: April 11:15 - CONCLUSION: Normal examination. Left hemidiaphragm is slightly elevated. Js Cheung MD Chest CT 05/19/17 0000 Signed Impressions: Service Date/Time: April 12:36 - CONCLUSION: Bronchiectasis and scarring in the right middle lobe medially. No concerning masses seen. No etiology for chest pain is identified. Js Cheung MD Physical Exam CONSTITUTIONAL/GENERAL: This is an adequately nourished patient, in mild distress. 2/2 pain TUBES/LINES/DRAINS: SKIN: No jaundice, rashes, or lesions. HEAD: Atraumatic. Normocephalic. EYES: Pupils equal and round and reactive. Extraocular motions intact. No scleral icterus. No injection or drainage. Fundi not examined. ENT: Hearing grossly normal. Nose without bleeding or purulent drainage. Throat without visible erythema, exudates, masses, or lesions. NECK: Trachea midline. + tender to palpatio. Decreased ROM noted CHEST: marked tenderness to palpation over L pectoralis area + swelling present CARDIOVASCULAR: Regular rate and rhythm . No JVD. Peripheral pulses symmetric. RESPIRATORY/CHEST: Symmetric, unlabored respirations. GASTROINTESTINAL: Abdomen soft, non-tender, nondistended. No hepato-splenomegaly , or palpable masses. No guarding. GENITOURINARY: Without palpable bladder distension. MUSCULOSKELETAL: Extremities without clubbing, cyanosis, or edema. No joint tenderness or effusion noted. ROM limited in L shoulder NEUROLOGICAL: Awake and alert. Motor and sensory grossly within normal limits. Follows commands. Clear speech. Moves all extremities. PSYCHIATRIC: No obvious anxiety/depression. no apparent hallucinations or other psychotic thought process. Assessment & Plan Remarks Serratia sepsis , likely some clavicle infections, maybe progressed to osteo, abscess -worse clinically, now unable to move his shouolder cont cefepime dc levaquine repeat imaging studies MRI w IV contrast Tara Perez MD May 22, 2017 19:06
[2017-05-22] MEDS ORDERED: GADODIAMIDE PF 287 MG/ML 20 ML VIAL (for RAD MRI) IVCONTRAST ONE (19:49)
[2017-05-22 20:00] VITALS: BP_SYST 119; BP_SYST 126; BP_DIAS 69; BP_DIAS 81; PULSE 104; PULSE 79; RESP 18; TEMP 97.8; TEMP 97.9; O2SAT 96
--- NOTE | 2017-05-22 20:20 | RADRPT ---
EXAM DATE/TIME: 05/22/2017 19:19 [facility] COMPARISON: CT THORAX W CONTRAST, May 19, 2017, 12:36. INDICATIONS : Worsening left anterior chest pain. Abcess. CONTRAST: 14 cc Omniscan (gadodiamide) IV MEDICAL HISTORY : None. SURGICAL HISTORY : Tracheotomy. ENCOUNTER: Subsequent ACUITY: 4-6 days PAIN SCORE: 2/10 LOCATION: Left clavicle. TECHNIQUE: Multi-weighted, multi-axial MR images of the chest both before and after the administration of intrav enous contrast. FINDINGS: There is ill-defined soft tissue edema and enhancement adjacent to the medial left clavicle and invol ving the left pectoralis muscle. It extends into the anterior superficial soft tissues. No organized peripherally enhancing fluid collections identified. Mild adjacent clavicular bony edema. No evidence of bone erosion. No confluent signal abnormality in the precontrast T1-weighted images to confirm os teomyelitis. CONCLUSION: Ill-defined soft tissue edema and enhancement of the anterior chest wall immediately adjacent to the medial left clavicle and extending into the left pectoralis muscle. Findings suggest cellulitis in th e proper clinical setting. Traumatic etiology/muscle strain also be in the differential diagnosis. No evidence of organized drainable abscess. Adjacent mild clavicular bony edema may are present early o steomyelitis or reactive change from adjacent soft tissue infection. No findings to confirm definitiv e osteomyelitis. Calos Bauer MD on May 22, 2017 at 20:10 Board Certified Radiologist. This report was verified electronically.
[2017-05-23] VITALS: BP 115/84; PULSE 62; RESP 18; TEMP 98.4; O2SAT 98
[2017-05-23] MEDS: oxyCODONE/ACETAMINOPHEN 5 MG/325 MG TAB PO PRN ×6 (01:04→23:42)
[2017-05-23 04:00] VITALS: BP 125/79; PULSE 56; RESP 18; TEMP 97.6; O2SAT 98
[2017-05-23] MEDS: CEFEPIME INJ 2,000 MG in SODIUM CHLORIDE 0.9% INJ 100 ML IV SCH ×3 (04:58→19:16)
[2017-05-23 07:18] LABS: AUTOMATED NEUTROPHIL # 3.2 TH/MM3 (1.8-7.7); BASOPHIL % 0.6 % (0.0-2.0); EOSINOPHIL # 0.3 TH/MM3 (0-0.4); EOSINOPHIL % 4.7 % (0.0-4.0); HEMATOCRIT 37.1 % (39.0-51.0); HEMOGLOBIN 12.8 GM/DL (13.0-17.0); LYMPH % 25.7 % (9.0-44.0); LYMPHOCYTE # 1.5 TH/MM3 (1.0-4.8); MEAN CELL VOLUME 86.7 FL (80.0-100.0); MEAN CORPUSCULAR HGB CONC 34.6 % (32.0-36.0); MEAN PLATELET VOLUME 8.2 FL (7.0-11.0); MONO % 12.9 % (0.0-8.0); MONOCYTE # 0.7 TH/MM3 (0-0.9); NEUT % 56.1 % (16.0-70.0); PLATELET COUNT 320 TH/MM3 (150-450); RED BLOOD COUNT 4.28 MIL/MM3 (4.50-5.90); RED CELL DISTRIBUTION WIDTH 14.6 % (11.6-17.2); WHITE BLOOD COUNT 5.7 TH/MM3 (4.0-11.0)
[2017-05-23 07:57] LABS: WESTERGREN SEDIMENTATION RATE 48 mm/hr (0-15)
[2017-05-23 08:00] VITALS: BP 129/75; PULSE 65; RESP 17; TEMP 97.5; O2SAT 98
[2017-05-23 08:00] LABS: BICARBONATE 30.2 MEQ/L (21.0-32.0); CALCIUM 9.2 MG/DL (8.5-10.1); CREATININE 0.72 MG/DL (0.60-1.30)
[2017-05-23] MEDS: LEVOFLOXACIN 750 MG TAB PO SCH (08:53)
[2017-05-23] MEDS: DOCUSATE SODIUM 50 MG/SENNA 8.6 MG TAB PO SCH ×2 (08:54→19:17)
[2017-05-23] MEDS: SODIUM CHLORIDE 0.9% FLUSH 10 ML FLUSH IV FLUSH SCH ×2 (08:54→19:17)
[2017-05-23 12:00] VITALS: BP 152/72; PULSE 74; RESP 18; TEMP 97.7; O2SAT 96
--- NOTE | 2017-05-23 13:32 | HHI.PR ---
Subjective Remarks Follow up left shoulder pain. Patient states that pain is "about the same". No other complaints at this time. Objective Vitals Vital Signs Date Time Temp Pulse Resp B/P (MAP) Pulse Ox O2 Delivery O2 Flow Rate FiO2 05/23/17 12:00 97.7 74 18 152/72 (98) 96 05/23/17 08:00 97.5 65 17 129/75 (93) 98 05/23/17 04:00 97.6 56 18 125/79 (94) 98 05/23/17 00:00 98.4 62 18 115/84 (94) 98 05/22/17 20:00 97.8 79 18 119/69 (86) 96 05/22/17 15:49 98.3 73 18 129/88 (102) 96 I/O 05/22/17 05/22/17 05/22/17 05/23/17 05/23/17 05/23/17 07:00 15:00 23:00 07:00 15:00 23:00 Intake Total 100 ml 1438 ml 1100 ml Output Total 2300 ml 500 ml 1800 ml Balance -2200 ml 1438 ml 600 ml -1800 ml Intake Oral 480 ml IV Total 100 ml 958 ml 1100 ml Output Urine Total 2300 ml 500 ml 1800 ml # Voids 2 Result Diagram: 05/23/17 0614 05/23/17 0614 Imaging Last Impressions Chest MRI 05/22/17 0000 Signed Impressions: Service Date/Time: Monday, May 22, 2017 19:19 - CONCLUSION: Ill-defined soft tissue edema and enhancement of the anterior chest wall immediately adjacent to the medial left clavicle and extending into the left pectoralis muscle. Findings suggest cellulitis in the proper clinical setting. Traumatic etiology/muscle strain also be in the differential diagnosis. No evidence of organized drainable abscess. Adjacent mild clavicular bony edema may are present early osteomyelitis or reactive change from adjacent soft tissue infection. No findings to confirm definitive osteomyelitis. Calos Bauer MD Cervical Spine MRI 05/20/17 1037 Signed Impressions: Service Date/Time: Saturday, May 20, 2017 11:24 - CONCLUSION: 1. Please see the MRI of the soft tissues of the neck reported separately. 2. No MRI evidence to suggest osteomyelitis of the cervical spine. 3. Multilevel degenerative changes without central canal stenosis or neural impingement. Eugene Tam Jr., MD Soft Tissue MRI 05/19/17 0000 Signed Impressions: Service Date/Time: April 16:06 - CONCLUSION: Low-grade edema along the undersurface and the posterior margin of the medial left clavicle including some edema in the pectoralis minor muscle. There is no drainable abscess. There may be a small supraclavicular node measuring 9 x 12 mm. I don't see any abnormal edema in the cleidomanubrial joint the clavicle or the lung itself. Js Cheung MD Shoulder X-Ray 05/19/17 0000 Signed Impressions: Service Date/Time: April 11:16 - CONCLUSION: Unremarkable limited examination of the left shoulder. Js Cheung MD Neck CT 05/19/17 0000 Signed Impressions: Service Date/Time: April 12:30 - CONCLUSION: Normal examination. There is diffuse soft tissue edema left side of the neck compared to the right but no deep abscess or fluid is identified. Js Cheung MD Chest X-Ray 05/19/17 0000 Signed Impressions: Service Date/Time: April 11:15 - CONCLUSION: Normal examination. Left hemidiaphragm is slightly elevated. Js Cheung MD Chest CT 05/19/17 0000 Signed Impressions: Service Date/Time: April 12:36 - CONCLUSION: Bronchiectasis and scarring in the right middle lobe medially. No concerning masses seen. No etiology for chest pain is identified. Js Cheung MD Objective Remarks General: No acute distress. Heart: Regular rate and rhythm. No murmur. Chest wall: Tenderness over the upper left pectoralis and left clavicle. No overlying erythema. No wounds noted. Lungs: Clear to auscultation bilaterally. No wheezes, rales, or rhonchi. Breathing is nonlabored. Abdomen: Soft, nontender, nondistended. Extremities: No lower extremity edema. Psych: Alert and oriented. Procedures None Urinary Catheter: No Vascular Central Line Catheter: No A/P Assessment and Plan 1. Left neck and clavicle pain: CT shows edema, but no apparent abscess. MRI shows possible osteomyelitis of the clavicle. Continue pain control, using caution with opiates due to history of IV drug abuse. 2. Gram-negative bacteremia: Repeat blood cultures are negative so far. Appreciate infectious disease recommendations. Echocardiogram ordered to evaluate for valvular vegetations. Continue antibiotics. Leukocytosis has resolved. 3. History of IV drug abuse: Patient has stated that he stopped using drugs one year ago. 4. DVT prophylaxis: Ambulation, SCDs. Geovanny Payton MD May 23, 2017 13:32
[2017-05-23 16:00] VITALS: BP 130/73; PULSE 78; RESP 17; TEMP 97.5; O2SAT 97
--- NOTE | 2017-05-23 18:03 | HHI.IDPN ---
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 Vital Signs Date Time Temp Pulse Resp B/P (MAP) Pulse Ox O2 Delivery O2 Flow Rate FiO2 05/23/17 16:00 97.5 78 17 130/73 (92) 97 05/23/17 12:00 97.7 74 18 152/72 (98) 96 05/23/17 08:00 97.5 65 17 129/75 (93) 98 05/23/17 04:00 97.6 56 18 125/79 (94) 98 05/23/17 00:00 98.4 62 18 115/84 (94) 98 05/22/17 20:00 97.8 79 18 119/69 (86) 96 05/23/17 05/23/17 05/24/17 14:59 22:59 06:59 Intake Total 960 ml Output Total 200 ml Balance 760 ml Intake Oral 960 ml Output Urine Total 200 ml # Bowel Movements 0 . Laboratory Tests Test 05/23/17 06:14 White Blood Count 5.7 TH/MM3 Red Blood Count 4.28 MIL/MM3 Hemoglobin 12.8 GM/DL Hematocrit 37.1 % Mean Corpuscular Volume 86.7 FL Mean Corpuscular Hemoglobin 30.0 PG Mean Corpuscular Hemoglobin Concent 34.6 % Red Cell Distribution Width 14.6 % Platelet Count 320 TH/MM3 Mean Platelet Volume 8.2 FL Neutrophils (%) (Auto) 56.1 % Lymphocytes (%) (Auto) 25.7 % Monocytes (%) (Auto) 12.9 % Eosinophils (%) (Auto) 4.7 % Basophils (%) (Auto) 0.6 % Neutrophils # (Auto) 3.2 TH/MM3 Lymphocytes # (Auto) 1.5 TH/MM3 Monocytes # (Auto) 0.7 TH/MM3 Eosinophils # (Auto) 0.3 TH/MM3 Basophils # (Auto) 0.0 TH/MM3 CBC Comment DIFF FINAL Differential Comment Erythrocyte Sedimentation Rate 48 mm/hr Laboratory Tests Test 05/23/17 06:14 Blood Urea Nitrogen 13 MG/DL Creatinine 0.72 MG/DL Random Glucose 80 MG/DL Calcium Level 9.2 MG/DL Sodium Level 136 MEQ/L Potassium Level 4.4 MEQ/L Chloride Level 101 MEQ/L Carbon Dioxide Level 30.2 MEQ/L Anion Gap 5 MEQ/L Estimat Glomerular Filtration Rate 121 ML/MIN Microbiology Date/Time Source Procedure Growth Status 05/21/17 03:25 Blood Peripheral Aerobic Blood Culture - Preliminary NO GROWTH IN 2 DAYS Resulted 05/21/17 03:25 Blood Peripheral Anaerobic Blood Culture - Preliminary NO GROWTH IN 2 DAYS Resulted 05/21/17 03:20 Blood Peripheral Aerobic Blood Culture - Preliminary NO GROWTH IN 2 DAYS Resulted 05/21/17 03:20 Blood Peripheral Anaerobic Blood Culture - Preliminary NO GROWTH IN 2 DAYS Resulted Imaging Last Impressions Chest MRI 05/22/17 0000 Signed Impressions: Service Date/Time: Monday, May 22, 2017 19:19 - CONCLUSION: Ill-defined soft tissue edema and enhancement of the anterior chest wall immediately adjacent to the medial left clavicle and extending into the left pectoralis muscle. Findings suggest cellulitis in the proper clinical setting. Traumatic etiology/muscle strain also be in the differential diagnosis. No evidence of organized drainable abscess. Adjacent mild clavicular bony edema may are present early osteomyelitis or reactive change from adjacent soft tissue infection. No findings to confirm definitive osteomyelitis. Calos Bauer MD Cervical Spine MRI 05/20/17 1037 Signed Impressions: Service Date/Time: Saturday, May 20, 2017 11:24 - CONCLUSION: 1. Please see the MRI of the soft tissues of the neck reported separately. 2. No MRI evidence to suggest osteomyelitis of the cervical spine. 3. Multilevel degenerative changes without central canal stenosis or neural impingement. Eugene Tam Jr., MD Soft Tissue MRI 05/19/17 0000 Signed Impressions: Service Date/Time: April 16:06 - CONCLUSION: Low-grade edema along the undersurface and the posterior margin of the medial left clavicle including some edema in the pectoralis minor muscle. There is no drainable abscess. There may be a small supraclavicular node measuring 9 x 12 mm. I don't see any abnormal edema in the cleidomanubrial joint the clavicle or the lung itself. Js Cheung MD Shoulder X-Ray 05/19/17 0000 Signed Impressions: Service Date/Time: April 11:16 - CONCLUSION: Unremarkable limited examination of the left shoulder. Js Cheung MD Neck CT 05/19/17 0000 Signed Impressions: Service Date/Time: April 12:30 - CONCLUSION: Normal examination. There is diffuse soft tissue edema left side of the neck compared to the right but no deep abscess or fluid is identified. Js Cheung MD Chest X-Ray 05/19/17 0000 Signed Impressions: Service Date/Time: April 11:15 - CONCLUSION: Normal examination. Left hemidiaphragm is slightly elevated. Js Cheung MD Chest CT 05/19/17 0000 Signed Impressions: Service Date/Time: April 12:36 - CONCLUSION: Bronchiectasis and scarring in the right middle lobe medially. No concerning masses seen. No etiology for chest pain is identified. Js Cheung MD Physical Exam CONSTITUTIONAL/GENERAL: This is an adequately nourished patient, in mild distress. 2/2 pain TUBES/LINES/DRAINS: SKIN: No jaundice, rashes, or lesions. HEAD: Atraumatic. Normocephalic. EYES: Pupils equal and round and reactive. Extraocular motions intact. No scleral icterus. No injection or drainage. Fundi not examined. ENT: Hearing grossly normal. Nose without bleeding or purulent drainage. Throat without visible erythema, exudates, masses, or lesions. NECK: Trachea midline. + tender to palpatio. Decreased ROM noted CHEST: marked tenderness to palpation over L pectoralis area + swelling present CARDIOVASCULAR: Regular rate and rhythm . No JVD. Peripheral pulses symmetric. RESPIRATORY/CHEST: Symmetric, unlabored respirations. GASTROINTESTINAL: Abdomen soft, non-tender, nondistended. No hepato-splenomegaly , or palpable masses. No guarding. GENITOURINARY: Without palpable bladder distension. MUSCULOSKELETAL: Extremities without clubbing, cyanosis, or edema. No joint tenderness or effusion noted. ROM limited in L shoulder, oth passive and active NEUROLOGICAL: Awake and alert. Motor and sensory grossly within normal limits. Follows commands. Clear speech. Moves all extremities. PSYCHIATRIC: No obvious anxiety/depression. no apparent hallucinations or other psychotic thought process. Assessment & Plan Remarks Serratia sepsis , likely some clavicle infections, maybe progressed to osteo, abscess -worse clinically, now unable to move his shouolder ? early L clavicle osteo cont cefepime L shoulcer MRI w IV contrast will consult ortho Tara Perez MD May 23, 2017 18:03
[2017-05-23 20:43] VITALS: BP 133/80; PULSE 73; RESP 18; TEMP 98; O2SAT 96
--- NOTE | 2017-05-23 21:59 | ECHRPT ---
Indication: VEGETATIONS CONCLUSIONS Normal left ventricular size. Wall thickness is normal. The left ventricular systolic function is normal with an estimated ejection fraction of 55%. Trace aortic valve regurgitation. BP: / HR: Rhythm: MEASUREMENTS (Male / Female) Normal Values Technical Quality: 2D ECHO LV Diastolic Diameter PLAX 4.5 cm 4.2 - 5.9 / 3.9 - 5.3 cm LV Systolic Diameter PLAX 3.4 cm IVS Diastolic Thickness 1.0 cm 0.6 - 1.0 / 0.6 - 0.9 cm LVPW Diastolic Thickness 0.6 cm 0.6 - 1.0 / 0.6 - 0.9 cm LV Relative Wall Thickness 0.4 DOPPLER TR Peak Velocity 128.0 cm/s TR Peak Gradient 6.6 mmHg FINDINGS LEFT VENTRICLE Normal left ventricular size. Wall thickness is normal. The left ventricular systolic function is normal with an estimated ejection fraction of 55%. RIGHT VENTRICLE Normal right ventricular size and systolic function. LEFT ATRIUM The left atrial size is normal. RIGHT ATRIUM The right atrial size is normal. ATRIAL SEPTUM Normal atrial septal thickness without atrial level shunting by limited color doppler interrogation. AORTA The aortic root and proximal ascending aorta are normal in size on limited imaging. MITRAL VALVE Structurally normal mitral valve. No mitral valve stenosis or regurgitation. AORTIC VALVE Trace aortic valve regurgitation. TRICUSPID VALVE Structurally normal tricuspid valve. No tricuspid valve stenosis or regurgitation. PULMONARY VALVE The pulmonary valve is not well visualized. VESSELS The inferior vena cava is normal in size. PERICARDIUM No pericardial effusion. Vladimir Connelly MD, FACC (Electronically Signed) Final Date:23 May 2017 21:59
[2017-05-24 00:35] VITALS: BP 138/80; PULSE 78; RESP 18; TEMP 98.2; O2SAT 96
[2017-05-24] MEDS: SODIUM CHLOR 0.45% 1000 ML INJ 1,000 ML IV SCH ×3 (01:40→22:41)
[2017-05-24] MEDS: oxyCODONE/ACETAMINOPHEN 5 MG/325 MG TAB PO PRN ×3 (03:35→20:23)
[2017-05-24] MEDS: CEFEPIME INJ 2,000 MG in SODIUM CHLORIDE 0.9% INJ 100 ML IV SCH ×2 (03:36→12:00)
[2017-05-24 05:18] VITALS: BP 136/93; PULSE 61; RESP 18; TEMP 97.8; O2SAT 96
--- NOTE | 2017-05-24 07:53 | PD.CONS ---
cc: Ash Hameed Jr., MD HPI Service Orthopedic Surgeons Consult Requested By Primary Care Physician Unknown Admission Diagnosis neck cellulitis Diagnoses: Chief Complaint: left neck pain History of Present Illness 41-year-old male with past medical history of IV drug use with heroin and multiple abscesses who presented with abrupt left neck pain. Patient stated that he felt achy in bis left shoulder yesterday. he stated it improved but woke up with the left neck and clavicle pain this morning. Pain is 7 out of 10 and worsens with any type of movement of the left neck or shoulder and palpation of the anterior chest wall along the pect major, pain is nonradiating and dull. Not associated with paresthesia or numbness to the LEFT upper extremity. denied any fevers or chills. All other review of system reviewed and negative. 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 Ordered Medications Current Medications Ketorolac Tromethamine (Toradol Inj) 30 mg ONCE ONCE IV PUSH Last administered on 05/19/17 11:05; Start 05/19/17 at 11:00; Stop 05/19/17 at 11 :01; Status DC Iohexol (Omnipaque 350 Inj) 100 ml STK-MED ONCE IVCONTRAST Last administered on 05/19/17 10:41; Start 05/19/17 at 10:41; Stop 05/19/17 at 13:21; Status DC Vancomycin HCl 1000 mg/Sodium Chloride 250 ml @ 250 mls/hr ONCE ONCE IV ; Start 05/19/17 at 14:00; Stop 05/19/17 at 14:59 Pharmacy Profile Note 0 ml @ 0 mls/hr UNSCH OTHER ; Start 05/19/17 at 14:45 Family History Past family history is reviewed. Patient stated that his mom had lung cancer. Social History Deny any tobacco, alcohol, or recent illicit drug use. Stopped IV drug use with heroin one year ago. Review of Systems Constitutional: DENIES: Diaphoretic episodes, Fatigue, Fever, Weight gain, Weight loss, Chills, Dizziness, Change in appetite, Night Sweats Eyes: DENIES: Blurred vision, Diplopia, Eye inflammation, Eye pain, Vision loss , Photosensitivity, Double Vision Ears, nose, mouth, throat: DENIES: Tinnitus, Hearing loss, Vertigo, Nasal discharge, Oral lesions, Throat pain, Hoarseness, Ear Pain, Running Nose, Epistaxis, Sinus Pain, Toothache, Odynophagia Respiratory: DENIES: Apneas, Cough, Snoring, Wheezing, Hemoptysis, Sputum production, Shortness of breath Cardiovascular: DENIES: Chest pain, Palpitations, Syncope, Dyspnea on Exertion , PND, Lower Extremity Edema, Orthopnea, Claudication Gastrointestinal: DENIES: Abdominal pain, Black stools, Bloody stools, Constipation, Diarrhea, Nausea, Vomiting, Difficulty Swallowing, Anorexia Past Family Social History Past Medical History History IV drug use with heroin Multiple abscesses Past Surgical History Tracheotomy Allergies: Coded Allergies: Sulfa (Sulfonamide Antibiotics) (Unverified Allergy, Severe, Rash, 01/11/17 ) sulfamethoxazole (Unverified Allergy, Severe, RASH, 01/11/17) trimethoprim (Unverified Allergy, Severe, RASH, 01/11/17) *MDRO Multi-Drug Resistant Organism (Verified Adverse Reaction, Unknown, ) 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, 10/2015, 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/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 Ordered Medications Current Medications Medications (Trade) Dose Ordered Sig/Giovanni Route Start Time Stop Time Status Last Admin Sodium Chloride 1,000 ml @ 75 mls/hr [id number] IV 05/19/17 15:00 05/24/17 03:36 (NS Flush) 2 ml UNSCH PRN IV FLUSH 05/19/17 15:00 (NS Flush) 2 ml BID IV FLUSH 05/19/17 21:00 05/23/17 19:17 (Tylenol) 650 mg Q4H PRN PO 05/19/17 15:00 (Zofran Inj) 4 mg Q6H PRN IVP 05/19/17 15:00 (Narcan Inj) 0.4 mg UNSCH PRN IV PUSH 05/19/17 15:00 (Loren-Colace) 1 tab BID PO 05/19/17 21:00 05/20/17 19:39 (Milk Of Magnesia Liq) 30 ml Q12H PRN PO 05/19/17 15:00 (Senokot) 17.2 mg Q12H PRN PO 05/19/17 15:00 (Dulcolax Supp) 10 mg DAILY PRN RECTAL 05/19/17 15:00 (Lactulose Liq) 30 ml DAILY PRN PO 05/19/17 15:00 (Percocet 5-325 Mg) 1 tab Q4H PRN PO 05/19/17 15:00 05/21/17 17:57 (Percocet 5-325 Mg) 2 tab Q4H PRN PO 05/19/17 15:00 05/24/17 03:35 Cefepime HCl 2000 mg/Sodium Chloride 100 ml @ 200 mls/hr Q8H IV 05/20/17 12:00 05/24/17 03:36 Reported Meds & Active Scripts Active Family History Past family history is reviewed. Patient stated that his mom had lung cancer. Social History Deny any tobacco, alcohol, or recent illicit drug use. Stopped IV drug use with heroin one year ago. Physical Exam Vital Signs Vital Signs Date Time Temp Pulse Resp B/P (MAP) Pulse Ox O2 Delivery O2 Flow Rate FiO2 05/24/17 05:18 97.8 61 18 136/93 (107) 96 05/24/17 00:35 98.2 78 18 138/80 (99) 96 05/23/17 20:43 98.0 73 18 133/80 (97) 96 05/23/17 16:00 97.5 78 17 130/73 (92) 97 05/23/17 12:00 97.7 74 18 152/72 (98) 96 05/23/17 08:00 97.5 65 17 129/75 (93) 98 Physical Exam alert, awake and oriented x3. No acute distress. Respiration: no use of accessory muscles. Normal respiratory efforts. abdomen soft. Bilateral lower extremity grossly neurovascularly intact. Toes warm and well- perfused. SILT distally. LUE: passive range of motion of the LEFT shoulder is maintained but limited secondary to pain over the clavicle. tender to Palpation over the mid clavicle and inferiorly along the clavicular head of the pectoralis major. TTP over SC joint. no instability. no cellulitis or skin changes. Laboratory Date/Time Source Procedure Growth Status 05/21/17 03:25 Blood Peripheral Aerobic Blood Culture - Preliminary NO GROWTH IN 2 DAYS Resulted 05/21/17 03:25 Blood Peripheral Anaerobic Blood Culture - Preliminary NO GROWTH IN 2 DAYS Resulted Result Diagram: 05/23/17 0614 05/23/17 0614 Imaging Last 72 hours Impressions Chest MRI 05/22/17 0000 Signed Impressions: Service Date/Time: Monday, May 22, 2017 19:19 - CONCLUSION: Ill-defined soft tissue edema and enhancement of the anterior chest wall immediately adjacent to the medial left clavicle and extending into the left pectoralis muscle. Findings suggest cellulitis in the proper clinical setting. Traumatic etiology/muscle strain also be in the differential diagnosis. No evidence of organized drainable abscess. Adjacent mild clavicular bony edema may are present early osteomyelitis or reactive change from adjacent soft tissue infection. No findings to confirm definitive osteomyelitis. Calos Bauer MD Assessment & Plan Assessment and Plan 41-year-old male with past medical history of IV drug use with heroin and multiple abscesses in the past who presented with sudden onset left neck pain. Patient stated that he felt achy in bis left shoulder yesterday. he stated it improved but woke up with the left neck and clavicle pain this morning. on exam he is grossly neurovascularly intact with good shoulder range of motion that is limited secondary to medial clavicle pain. He is tender to palpation over the sternoclavicular joint as well as the pectoralis major. There is no signs of septic SC joint arthritis or instability at the sternoclavicular joint. Imaging revealed myositis in the pectoralis major which is correlates with my clinical findings. distally for surgical intervention at this time. I recommended continued medical management with iv antibiotics. PT/OT ROM left shoulder as tolerated f/u 2 wks Ash Hameed Jr., MD May 24, 2017 07:53
[2017-05-24 08:32] VITALS: BP 128/85; PULSE 55; RESP 20; TEMP 98; O2SAT 96
[2017-05-24] MEDS: DOCUSATE SODIUM 50 MG/SENNA 8.6 MG TAB PO SCH ×2 (09:00→20:24)
[2017-05-24] MEDS ORDERED: GADODIAMIDE PF 287 MG/ML 5 ML VIAL (for RAD MRI) IVCONTRAST ONE (09:55)
--- NOTE | 2017-05-24 10:16 | HHI.PR ---
Subjective Remarks Follow up left shoulder infection/pain. Patient states that the pain is slightly less today. Just returned from MRI. No other complaints at this time. Objective Vitals Vital Signs Date Time Temp Pulse Resp B/P (MAP) Pulse Ox O2 Delivery O2 Flow Rate FiO2 05/24/17 08:32 98.0 55 20 128/85 (99) 96 05/24/17 05:18 97.8 61 18 136/93 (107) 96 05/24/17 00:35 98.2 78 18 138/80 (99) 96 05/23/17 20:43 98.0 73 18 133/80 (97) 96 05/23/17 16:00 97.5 78 17 130/73 (92) 97 05/23/17 12:00 97.7 74 18 152/72 (98) 96 I/O 05/23/17 05/23/17 05/23/17 05/24/17 05/24/17 05/24/17 06:59 14:59 22:59 06:59 14:59 22:59 Intake Total 1060 ml 100 ml 1000 ml Output Total 1800 ml 200 ml 1200 ml 1100 ml Balance -1800 ml 860 ml -1100 ml -100 ml Intake Oral 960 ml IV Total 100 ml 100 ml 1000 ml Output Urine Total 1800 ml 200 ml 1200 ml 1100 ml # Bowel Movements 0 Result Diagram: 05/23/17 0614 05/23/17 0614 Imaging Last Impressions Chest MRI 05/22/17 0000 Signed Impressions: Service Date/Time: Monday, May 22, 2017 19:19 - CONCLUSION: Ill-defined soft tissue edema and enhancement of the anterior chest wall immediately adjacent to the medial left clavicle and extending into the left pectoralis muscle. Findings suggest cellulitis in the proper clinical setting. Traumatic etiology/muscle strain also be in the differential diagnosis. No evidence of organized drainable abscess. Adjacent mild clavicular bony edema may are present early osteomyelitis or reactive change from adjacent soft tissue infection. No findings to confirm definitive osteomyelitis. Calos Bauer MD Cervical Spine MRI 05/20/17 1037 Signed Impressions: Service Date/Time: Saturday, May 20, 2017 11:24 - CONCLUSION: 1. Please see the MRI of the soft tissues of the neck reported separately. 2. No MRI evidence to suggest osteomyelitis of the cervical spine. 3. Multilevel degenerative changes without central canal stenosis or neural impingement. Eugene Tam Jr., MD Soft Tissue MRI 05/19/17 0000 Signed Impressions: Service Date/Time: April 16:06 - CONCLUSION: Low-grade edema along the undersurface and the posterior margin of the medial left clavicle including some edema in the pectoralis minor muscle. There is no drainable abscess. There may be a small supraclavicular node measuring 9 x 12 mm. I don't see any abnormal edema in the cleidomanubrial joint the clavicle or the lung itself. Js Cheung MD Shoulder X-Ray 05/19/17 0000 Signed Impressions: Service Date/Time: April 11:16 - CONCLUSION: Unremarkable limited examination of the left shoulder. Js Cheung MD Neck CT 05/19/17 0000 Signed Impressions: Service Date/Time: April 12:30 - CONCLUSION: Normal examination. There is diffuse soft tissue edema left side of the neck compared to the right but no deep abscess or fluid is identified. Js Cheung MD Chest X-Ray 05/19/17 0000 Signed Impressions: Service Date/Time: April 11:15 - CONCLUSION: Normal examination. Left hemidiaphragm is slightly elevated. Js Cheung MD Chest CT 05/19/17 0000 Signed Impressions: Service Date/Time: April 12:36 - CONCLUSION: Bronchiectasis and scarring in the right middle lobe medially. No concerning masses seen. No etiology for chest pain is identified. Js Cheung MD Objective Remarks General: No acute distress. Heart: Regular rate and rhythm. No murmur. Chest wall: Tenderness over the upper left pectoralis and left clavicle. No overlying erythema. No wounds noted. Lungs: Clear to auscultation bilaterally. No wheezes, rales, or rhonchi. Breathing is nonlabored. Abdomen: Soft, nontender, nondistended. Extremities: No lower extremity edema. Psych: Alert and oriented. Procedures None Urinary Catheter: No Vascular Central Line Catheter: No A/P Assessment and Plan 1. Left neck and clavicle pain: CT shows edema, but no apparent abscess. MRI shows possible osteomyelitis of the clavicle. Continue pain control, using caution with opiates due to history of IV drug abuse. Slightly less pain today. MRI of the left shoulder is pending. Appreciate orthopedic surgery recommendations. Nonoperative treatment at this time. 2. Gram-negative bacteremia: Repeat blood cultures are negative so far. Appreciate infectious disease recommendations. Echocardiogram report noted. Continue antibiotics. Leukocytosis has resolved. 3. History of IV drug abuse: Patient has stated that he stopped using drugs one year ago. 4. DVT prophylaxis: Ambulation, SCDs. Geovanny Payton MD May 24, 2017 10:16
--- NOTE | 2017-05-24 10:24 | RADRPT ---
EXAM DATE/TIME: 05/24/2017 09:33 [facility] COMPARISON: MRI CHEST W & W/O CONTRAST, May 22, 2017, 19:19. INDICATIONS : Abscess. Left soulder pain. CONTRAST: 14 cc Omniscan (gadodiamide) IV MEDICAL HISTORY : None. SURGICAL HISTORY : Tracheostomy. ENCOUNTER: Subsequent ACUITY: 4-6 days PAIN SCORE: 7/10 LOCATION: Left shoulder TECHNIQUE: Multiplanar, multisequence MRI examination was performed with and without contrast. FINDINGS: Moderate induration is seen over the left chest wall. There is no evidence for joint effusion. There is no abnormal marrow to suggest pathological marrow replacement. Glenoid is unremarkable CONCLUSION: I do not see evidence for septic arthritis Persistent induration left anterior chest wall 2017 at 10:20 Board Certified Radiologist. This report was verified electronically.
[2017-05-24 12:06] VITALS: BP 159/93; PULSE 64; RESP 20; TEMP 98.5; O2SAT 97
--- NOTE | 2017-05-24 14:47 | HHI.IDPN ---
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 Vital Signs Date Time Temp Pulse Resp B/P (MAP) Pulse Ox O2 Delivery O2 Flow Rate FiO2 05/24/17 12:06 98.5 64 20 159/93 (115) 97 05/24/17 08:32 98.0 55 20 128/85 (99) 96 05/24/17 05:18 97.8 61 18 136/93 (107) 96 05/24/17 00:35 98.2 78 18 138/80 (99) 96 05/23/17 20:43 98.0 73 18 133/80 (97) 96 05/23/17 16:00 97.5 78 17 130/73 (92) 97 . Laboratory Tests Test 05/23/17 06:14 White Blood Count 5.7 TH/MM3 Red Blood Count 4.28 MIL/MM3 Hemoglobin 12.8 GM/DL Hematocrit 37.1 % Mean Corpuscular Volume 86.7 FL Mean Corpuscular Hemoglobin 30.0 PG Mean Corpuscular Hemoglobin Concent 34.6 % Red Cell Distribution Width 14.6 % Platelet Count 320 TH/MM3 Mean Platelet Volume 8.2 FL Neutrophils (%) (Auto) 56.1 % Lymphocytes (%) (Auto) 25.7 % Monocytes (%) (Auto) 12.9 % Eosinophils (%) (Auto) 4.7 % Basophils (%) (Auto) 0.6 % Neutrophils # (Auto) 3.2 TH/MM3 Lymphocytes # (Auto) 1.5 TH/MM3 Monocytes # (Auto) 0.7 TH/MM3 Eosinophils # (Auto) 0.3 TH/MM3 Basophils # (Auto) 0.0 TH/MM3 CBC Comment DIFF FINAL Differential Comment Erythrocyte Sedimentation Rate 48 mm/hr Laboratory Tests Test 05/23/17 06:14 Blood Urea Nitrogen 13 MG/DL Creatinine 0.72 MG/DL Random Glucose 80 MG/DL Calcium Level 9.2 MG/DL Sodium Level 136 MEQ/L Potassium Level 4.4 MEQ/L Chloride Level 101 MEQ/L Carbon Dioxide Level 30.2 MEQ/L Anion Gap 5 MEQ/L Estimat Glomerular Filtration Rate 121 ML/MIN Imaging Shoulder MRI 05/24/17 0000 Signed Impressions: Service Date/Time: Wednesday, May 24, 2017 09:33 - CONCLUSION: I do not see evidence for septic arthritis Persistent induration left anterior chest wall 2017 at 10:20 Board Certified Radiologist. This report was verified electronically. Chest MRI 05/22/17 0000 Signed Impressions: Service Date/Time: Monday, May 22, 2017 19:19 - CONCLUSION: Ill-defined soft tissue edema and enhancement of the anterior chest wall immediately adjacent to the medial left clavicle and extending into the left pectoralis muscle. Findings suggest cellulitis in the proper clinical setting. Traumatic etiology/muscle strain also be in the differential diagnosis. No evidence of organized drainable abscess. Adjacent mild clavicular bony edema may are present early osteomyelitis or reactive change from adjacent soft tissue infection. No findings to confirm definitive osteomyelitis. Calos Bauer MD Last Impressions Chest MRI 05/22/17 0000 Signed Impressions: Service Date/Time: Monday, May 22, 2017 19:19 - CONCLUSION: Ill-defined soft tissue edema and enhancement of the anterior chest wall immediately adjacent to the medial left clavicle and extending into the left pectoralis muscle. Findings suggest cellulitis in the proper clinical setting. Traumatic etiology/muscle strain also be in the differential diagnosis. No evidence of organized drainable abscess. Adjacent mild clavicular bony edema may are present early osteomyelitis or reactive change from adjacent soft tissue infection. No findings to confirm definitive osteomyelitis. Calos Bauer MD Cervical Spine MRI 05/20/17 1037 Signed Impressions: Service Date/Time: Saturday, May 20, 2017 11:24 - CONCLUSION: 1. Please see the MRI of the soft tissues of the neck reported separately. 2. No MRI evidence to suggest osteomyelitis of the cervical spine. 3. Multilevel degenerative changes without central canal stenosis or neural impingement. Eugene Tam Jr., MD Soft Tissue MRI 05/19/17 0000 Signed Impressions: Service Date/Time: April 16:06 - CONCLUSION: Low-grade edema along the undersurface and the posterior margin of the medial left clavicle including some edema in the pectoralis minor muscle. There is no drainable abscess. There may be a small supraclavicular node measuring 9 x 12 mm. I don't see any abnormal edema in the cleidomanubrial joint the clavicle or the lung itself. Js Cheung MD Shoulder X-Ray 05/19/17 0000 Signed Impressions: Service Date/Time: April 11:16 - CONCLUSION: Unremarkable limited examination of the left shoulder. Js Cheung MD Neck CT 05/19/17 0000 Signed Impressions: Service Date/Time: April 12:30 - CONCLUSION: Normal examination. There is diffuse soft tissue edema left side of the neck compared to the right but no deep abscess or fluid is identified. Js Cheung MD Chest X-Ray 05/19/17 0000 Signed Impressions: Service Date/Time: April 11:15 - CONCLUSION: Normal examination. Left hemidiaphragm is slightly elevated. Js Cheung MD Chest CT 05/19/17 0000 Signed Impressions: Service Date/Time: April 12:36 - CONCLUSION: Bronchiectasis and scarring in the right middle lobe medially. No concerning masses seen. No etiology for chest pain is identified. Js Cheung MD Physical Exam GENERAL: Awake and alert, NAD. He does not look toxic appearing SKIN: No jaundice, rashes, or lesions. No embolic lesions HEAD: Atraumatic. Normocephalic. EYES: Pupils equal and round and reactive. Extraocular motions intact. No scleral icterus. No injection or drainage. Fundi not examined. ENT: Nose without bleeding or purulent drainage. Throat without visible erythema, exudates, masses, or lesions. NECK: Trachea midline. + tender to palpation on L side, no obvious swelling noted. CHEST: marked tenderness to palpation over L pectoralis area, very minimal difference in size compared to R, skin not indurated CARDIOVASCULAR: Regular rate and rhythm . No murmur RESPIRATORY/CHEST: Symmetric, unlabored respirations. Clear to auscultation GASTROINTESTINAL: Abdomen soft, non-tender, nondistended. No hepato-splenomegaly , or palpable masses. No guarding. GENITOURINARY: Without palpable bladder distension. MUSCULOSKELETAL: Extremities without clubbing, cyanosis, or edema. No joint tenderness or effusion noted. ROM limited in L shoulder, both passive and active NEUROLOGICAL: Awake and alert. Motor and sensory grossly within normal limits. Follows commands. Clear speech. Moves all extremities. PSYCHIATRIC: Calm and cooperative LINE: No evidence of infection Assessment & Plan Remarks Serratia sepsis, likely some clavicle infections, extension to L pectoralis muscle Known IVDU PLAN Change to Rocephin Follow C/S Monitor progress Will need to monitor L chest wall, may form a fluid collection at some point Explained plan to the patient Fern Carpio MD May 24, 2017 14:47
[2017-05-24 16:01] VITALS: BP 131/83; PULSE 69; RESP 20; TEMP 98.5; O2SAT 96
[2017-05-24] MEDS: cefTRIAXone INJ 2,000 MG in SODIUM CHLORIDE 0.9% INJ 100 ML IV SCH (16:30)
[2017-05-24 20:11] VITALS: BP 120/83; PULSE 73; RESP 17; TEMP 98.2; O2SAT 96
[2017-05-24] MEDS: SODIUM CHLORIDE 0.9% FLUSH 10 ML FLUSH IV FLUSH SCH (20:24)
[2017-05-25] MEDS: oxyCODONE/ACETAMINOPHEN 5 MG/325 MG TAB PO PRN ×5 (00:33→20:18)
[2017-05-25 00:35] VITALS: BP 125/82; PULSE 71; RESP 17; TEMP 98.1; O2SAT 96
[2017-05-25 05:00] VITALS: BP 133/77; PULSE 65; RESP 17; TEMP 98; O2SAT 96
[2017-05-25 08:21] VITALS: BP 122/77; PULSE 63; RESP 20; TEMP 97.8; O2SAT 96
[2017-05-25] MEDS: DOCUSATE SODIUM 50 MG/SENNA 8.6 MG TAB PO SCH ×2 (09:00→20:17)
[2017-05-25] MEDS: SODIUM CHLORIDE 0.9% FLUSH 10 ML FLUSH IV FLUSH SCH ×2 (09:00→21:00)
--- NOTE | 2017-05-25 09:20 | HHI.PR ---
Subjective Remarks Follow up bacteremia, left shoulder infection. Patient states that the pain is "about the same". No other complaints at this time. Objective Vitals Vital Signs Date Time Temp Pulse Resp B/P (MAP) Pulse Ox O2 Delivery O2 Flow Rate FiO2 05/25/17 08:21 97.8 63 20 122/77 (92) 96 05/25/17 05:00 98.0 65 17 133/77 (95) 96 05/25/17 00:35 98.1 71 17 125/82 (96) 96 05/24/17 20:11 98.2 73 17 120/83 (95) 96 05/24/17 16:01 98.5 69 20 131/83 (99) 96 05/24/17 12:06 98.5 64 20 159/93 (115) 97 I/O 05/24/17 05/24/17 05/24/17 05/25/17 05/25/17 05/25/17 07:00 15:00 23:00 07:00 15:00 23:00 Intake Total 1000 ml 580 ml 1000 ml 480 ml Output Total 1100 ml 1600 ml 500 ml 1750 ml Balance -100 ml -1020 ml 500 ml -1270 ml Intake Oral 480 ml 480 ml IV Total 1000 ml 100 ml 1000 ml Output Urine Total 1100 ml 1600 ml 500 ml 1750 ml Result Diagram: 05/23/17 0614 05/23/17 0614 Imaging Last Impressions Shoulder MRI 05/24/17 0000 Signed Impressions: Service Date/Time: Wednesday, May 24, 2017 09:33 - CONCLUSION: I do not see evidence for septic arthritis Persistent induration left anterior chest wall 2017 at 10:20 Board Certified Radiologist. This report was verified electronically. Chest MRI 05/22/17 0000 Signed Impressions: Service Date/Time: Monday, May 22, 2017 19:19 - CONCLUSION: Ill-defined soft tissue edema and enhancement of the anterior chest wall immediately adjacent to the medial left clavicle and extending into the left pectoralis muscle. Findings suggest cellulitis in the proper clinical setting. Traumatic etiology/muscle strain also be in the differential diagnosis. No evidence of organized drainable abscess. Adjacent mild clavicular bony edema may are present early osteomyelitis or reactive change from adjacent soft tissue infection. No findings to confirm definitive osteomyelitis. Calos Bauer MD Cervical Spine MRI 05/20/17 1037 Signed Impressions: Service Date/Time: Saturday, May 20, 2017 11:24 - CONCLUSION: 1. Please see the MRI of the soft tissues of the neck reported separately. 2. No MRI evidence to suggest osteomyelitis of the cervical spine. 3. Multilevel degenerative changes without central canal stenosis or neural impingement. Eugene Tam Jr., MD Soft Tissue MRI 05/19/17 0000 Signed Impressions: Service Date/Time: April 16:06 - CONCLUSION: Low-grade edema along the undersurface and the posterior margin of the medial left clavicle including some edema in the pectoralis minor muscle. There is no drainable abscess. There may be a small supraclavicular node measuring 9 x 12 mm. I don't see any abnormal edema in the cleidomanubrial joint the clavicle or the lung itself. Js Cheung MD Shoulder X-Ray 05/19/17 0000 Signed Impressions: Service Date/Time: April 11:16 - CONCLUSION: Unremarkable limited examination of the left shoulder. Js Cheung MD Neck CT 05/19/17 0000 Signed Impressions: Service Date/Time: April 12:30 - CONCLUSION: Normal examination. There is diffuse soft tissue edema left side of the neck compared to the right but no deep abscess or fluid is identified. Js Cheung MD Chest X-Ray 05/19/17 0000 Signed Impressions: Service Date/Time: April 11:15 - CONCLUSION: Normal examination. Left hemidiaphragm is slightly elevated. Js Cheung MD Chest CT 05/19/17 0000 Signed Impressions: Service Date/Time: April 12:36 - CONCLUSION: Bronchiectasis and scarring in the right middle lobe medially. No concerning masses seen. No etiology for chest pain is identified. Js Cheung MD Objective Remarks General: No acute distress. Heart: Regular rate and rhythm. No murmur. Chest wall: Tenderness over the upper left pectoralis and left clavicle. No overlying erythema. No wounds noted. Lungs: Clear to auscultation bilaterally. No wheezes, rales, or rhonchi. Breathing is nonlabored. Abdomen: Soft, nontender, nondistended. Extremities: No lower extremity edema. Psych: Alert and oriented. Procedures None Urinary Catheter: No Vascular Central Line Catheter: No A/P Assessment and Plan 1. Left neck and clavicle pain: CT shows edema, but no apparent abscess. MRI shows possible osteomyelitis of the clavicle. Continue pain control, using caution with opiates due to history of IV drug abuse. Slightly less pain today. MRI of the left shoulder is pending. Appreciate orthopedic surgery recommendations. Nonoperative treatment at this time. 2. Gram-negative bacteremia: Blood cultures growing Serratia Marcescens, sensitive to Rocephin. Repeat blood cultures are negative so far. Appreciate infectious disease recommendations. Echocardiogram report noted. Continue antibiotics. Leukocytosis has resolved. 3. History of IV drug abuse: Patient has stated that he stopped using drugs one year ago. 4. DVT prophylaxis: Ambulation, SCDs. Geovanny Payton MD May 25, 2017 09:20
[2017-05-25] MEDS: SODIUM CHLOR 0.45% 1000 ML INJ 1,000 ML IV SCH ×2 (11:43→17:40)
[2017-05-25 12:28] VITALS: BP 132/86; PULSE 82; RESP 20; TEMP 97.8; O2SAT 95
[2017-05-25] MEDS: cefTRIAXone INJ 2,000 MG in SODIUM CHLORIDE 0.9% INJ 100 ML IV SCH (15:11)
[2017-05-25 16:31] VITALS: BP 127/85; PULSE 78; RESP 20; TEMP 98.3; O2SAT 95
[2017-05-25 20:30] VITALS: BP 130/77; PULSE 15; RESP 17; TEMP 98.1; O2SAT 96
[2017-05-26] VITALS: BP 128/77; PULSE 70; RESP 17; TEMP 98.3; O2SAT 95
[2017-05-26] MEDS: oxyCODONE/ACETAMINOPHEN 5 MG/325 MG TAB PO PRN ×5 (00:25→21:37)
[2017-05-26 05:00] VITALS: BP 137/87; PULSE 66; RESP 17; TEMP 97.8; O2SAT 96
[2017-05-26 08:00] VITALS: BP 120/75; PULSE 66; RESP 17; TEMP 97.9; O2SAT 96
[2017-05-26] MEDS: DOCUSATE SODIUM 50 MG/SENNA 8.6 MG TAB PO SCH ×2 (08:28→21:37)
[2017-05-26] MEDS: SODIUM CHLORIDE 0.9% FLUSH 10 ML FLUSH IV FLUSH SCH ×2 (08:29→21:39)
[2017-05-26] MEDS: SODIUM CHLOR 0.45% 1000 ML INJ 1,000 ML IV SCH ×2 (08:31→20:20)
[2017-05-26 12:00] VITALS: BP 123/70; PULSE 75; RESP 17; TEMP 97.8; O2SAT 96
[2017-05-26] MEDS: cefTRIAXone INJ 2,000 MG in SODIUM CHLORIDE 0.9% INJ 100 ML IV SCH (13:23)
--- NOTE | 2017-05-26 13:43 | HHI.PR ---
Subjective Remarks Follow up bacteremia, left shoulder infection. Patient states that his left shoulder pain is "about the same". No other complaints at this time. Objective Vitals Vital Signs Date Time Temp Pulse Resp B/P (MAP) Pulse Ox O2 Delivery O2 Flow Rate FiO2 05/26/17 12:00 97.8 75 17 123/70 (87) 96 05/26/17 08:00 97.9 66 17 120/75 (90) 96 05/26/17 05:00 97.8 66 17 137/87 (104) 96 05/26/17 00:00 98.3 70 17 128/77 (94) 95 05/25/17 20:30 98.1 15 17 130/77 (94) 96 05/25/17 16:31 98.3 78 20 127/85 (99) 95 I/O 05/25/17 05/25/17 05/25/17 05/26/17 05/26/17 05/26/17 06:59 14:59 22:59 06:59 14:59 22:59 Intake Total 480 ml 1950 ml 340 ml 240 ml Output Total 1750 ml 1300 ml 1500 ml 1250 ml 600 ml Balance -1270 ml 650 ml -1160 ml -1010 ml -600 ml Intake Oral 480 ml 960 ml 240 ml 240 ml IV Total 990 ml 100 ml Output Urine Total 1750 ml 1300 ml 1500 ml 1250 ml 600 ml # Bowel Movements 1 Result Diagram: 05/23/17 0614 05/23/17 0614 Imaging Last Impressions Shoulder MRI 05/24/17 0000 Signed Impressions: Service Date/Time: Wednesday, May 24, 2017 09:33 - CONCLUSION: I do not see evidence for septic arthritis Persistent induration left anterior chest wall 2017 at 10:20 Board Certified Radiologist. This report was verified electronically. Chest MRI 05/22/17 0000 Signed Impressions: Service Date/Time: Monday, May 22, 2017 19:19 - CONCLUSION: Ill-defined soft tissue edema and enhancement of the anterior chest wall immediately adjacent to the medial left clavicle and extending into the left pectoralis muscle. Findings suggest cellulitis in the proper clinical setting. Traumatic etiology/muscle strain also be in the differential diagnosis. No evidence of organized drainable abscess. Adjacent mild clavicular bony edema may are present early osteomyelitis or reactive change from adjacent soft tissue infection. No findings to confirm definitive osteomyelitis. Calos Bauer MD Cervical Spine MRI 05/20/17 1037 Signed Impressions: Service Date/Time: Saturday, May 20, 2017 11:24 - CONCLUSION: 1. Please see the MRI of the soft tissues of the neck reported separately. 2. No MRI evidence to suggest osteomyelitis of the cervical spine. 3. Multilevel degenerative changes without central canal stenosis or neural impingement. Eugene Tam Jr., MD Soft Tissue MRI 05/19/17 0000 Signed Impressions: Service Date/Time: April 16:06 - CONCLUSION: Low-grade edema along the undersurface and the posterior margin of the medial left clavicle including some edema in the pectoralis minor muscle. There is no drainable abscess. There may be a small supraclavicular node measuring 9 x 12 mm. I don't see any abnormal edema in the cleidomanubrial joint the clavicle or the lung itself. Js Cheung MD Shoulder X-Ray 05/19/17 0000 Signed Impressions: Service Date/Time: April 11:16 - CONCLUSION: Unremarkable limited examination of the left shoulder. Js Cheung MD Neck CT 05/19/17 0000 Signed Impressions: Service Date/Time: April 12:30 - CONCLUSION: Normal examination. There is diffuse soft tissue edema left side of the neck compared to the right but no deep abscess or fluid is identified. Js Cheung MD Chest X-Ray 05/19/17 0000 Signed Impressions: Service Date/Time: April 11:15 - CONCLUSION: Normal examination. Left hemidiaphragm is slightly elevated. Js Cheung MD Chest CT 05/19/17 0000 Signed Impressions: Service Date/Time: April 12:36 - CONCLUSION: Bronchiectasis and scarring in the right middle lobe medially. No concerning masses seen. No etiology for chest pain is identified. Js Cheung MD Objective Remarks General: No acute distress. Heart: Regular rate and rhythm. No murmur. Chest wall: Tenderness over the upper left pectoralis and left clavicle. No overlying erythema. No wounds noted. Lungs: Clear to auscultation bilaterally. No wheezes, rales, or rhonchi. Breathing is nonlabored. Abdomen: Soft, nontender, nondistended. Extremities: No lower extremity edema. Psych: Alert and oriented. Procedures None Urinary Catheter: No Vascular Central Line Catheter: No A/P Assessment and Plan 05/26/17 No change. Continue IV antibiotics. Blood cultures from 05/21/17 are negative. 1. Left neck and clavicle pain: CT shows edema, but no apparent abscess. MRI shows possible osteomyelitis of the clavicle. Continue pain control, using caution with opiates due to history of IV drug abuse. Appreciate orthopedic surgery recommendations. Nonoperative treatment at this time. 2. Gram-negative bacteremia: Blood cultures growing Serratia Marcescens, sensitive to Rocephin. Repeat blood cultures are negative. Appreciate infectious disease recommendations. Echocardiogram report noted. Continue antibiotics. Leukocytosis has resolved. 3. History of IV drug abuse: Patient has stated that he stopped using drugs one year ago. 4. DVT prophylaxis: Ambulation, SCDs. Geovanny Payton MD May 26, 2017 13:43
[2017-05-26 16:00] VITALS: BP 106/57; PULSE 73; RESP 17; TEMP 98.2; O2SAT 96
[2017-05-26 20:02] VITALS: BP 134/73; PULSE 76; RESP 17; TEMP 97.7; O2SAT 96
[2017-05-27 00:30] VITALS: BP 120/77; PULSE 63; RESP 17; TEMP 97.6; O2SAT 96
[2017-05-27] MEDS: oxyCODONE/ACETAMINOPHEN 5 MG/325 MG TAB PO PRN ×6 (01:42→21:17)
[2017-05-27 06:00] VITALS: BP 117/53; PULSE 58; RESP 17; TEMP 98.6; O2SAT 96
[2017-05-27 08:00] VITALS: BP 120/70; PULSE 60; RESP 16; TEMP 97.9; O2SAT 95
[2017-05-27] MEDS: DOCUSATE SODIUM 50 MG/SENNA 8.6 MG TAB PO SCH ×2 (08:04→21:00)
[2017-05-27] MEDS: SODIUM CHLORIDE 0.9% FLUSH 10 ML FLUSH IV FLUSH SCH ×2 (08:06→21:00)
[2017-05-27] MEDS: SODIUM CHLOR 0.45% 1000 ML INJ 1,000 ML IV SCH ×2 (08:06→21:17)
--- NOTE | 2017-05-27 09:24 | HHI.PR ---
Subjective Remarks Follow up bacteremia, left shoulder infection. Patient states that he feels "about the same". Still with pain in the left shoulder region. No other complaints. Objective Vitals Vital Signs Date Time Temp Pulse Resp B/P (MAP) Pulse Ox O2 Delivery O2 Flow Rate FiO2 05/27/17 08:00 97.9 60 16 120/70 (87) 95 05/27/17 06:00 98.6 58 17 117/53 (74) 96 05/27/17 00:30 97.6 63 17 120/77 (91) 96 05/26/17 20:02 97.7 76 17 134/73 (93) 96 05/26/17 16:00 98.2 73 17 106/57 (73) 96 05/26/17 12:00 97.8 75 17 123/70 (87) 96 I/O 05/26/17 05/26/17 05/26/17 05/27/17 05/27/17 05/27/17 07:00 15:00 23:00 07:00 15:00 23:00 Intake Total 240 ml 720 ml 240 ml Output Total 1250 ml 600 ml 2260 ml 700 ml Balance -1010 ml -600 ml -1540 ml -460 ml Intake Oral 240 ml 720 ml 240 ml Output Urine Total 1250 ml 600 ml 2260 ml 700 ml # Voids 3 # Bowel Movements 1 1 Result Diagram: 05/23/17 0614 05/23/17 0614 Imaging Last Impressions Shoulder MRI 05/24/17 0000 Signed Impressions: Service Date/Time: Wednesday, May 24, 2017 09:33 - CONCLUSION: I do not see evidence for septic arthritis Persistent induration left anterior chest wall 2017 at 10:20 Board Certified Radiologist. This report was verified electronically. Chest MRI 05/22/17 0000 Signed Impressions: Service Date/Time: Monday, May 22, 2017 19:19 - CONCLUSION: Ill-defined soft tissue edema and enhancement of the anterior chest wall immediately adjacent to the medial left clavicle and extending into the left pectoralis muscle. Findings suggest cellulitis in the proper clinical setting. Traumatic etiology/muscle strain also be in the differential diagnosis. No evidence of organized drainable abscess. Adjacent mild clavicular bony edema may are present early osteomyelitis or reactive change from adjacent soft tissue infection. No findings to confirm definitive osteomyelitis. Calos Bauer MD Cervical Spine MRI 05/20/17 1037 Signed Impressions: Service Date/Time: Saturday, May 20, 2017 11:24 - CONCLUSION: 1. Please see the MRI of the soft tissues of the neck reported separately. 2. No MRI evidence to suggest osteomyelitis of the cervical spine. 3. Multilevel degenerative changes without central canal stenosis or neural impingement. Eugene Tam Jr., MD Soft Tissue MRI 05/19/17 0000 Signed Impressions: Service Date/Time: April 16:06 - CONCLUSION: Low-grade edema along the undersurface and the posterior margin of the medial left clavicle including some edema in the pectoralis minor muscle. There is no drainable abscess. There may be a small supraclavicular node measuring 9 x 12 mm. I don't see any abnormal edema in the cleidomanubrial joint the clavicle or the lung itself. Js Cheung MD Shoulder X-Ray 05/19/17 0000 Signed Impressions: Service Date/Time: April 11:16 - CONCLUSION: Unremarkable limited examination of the left shoulder. Js Cheung MD Neck CT 05/19/17 0000 Signed Impressions: Service Date/Time: April 12:30 - CONCLUSION: Normal examination. There is diffuse soft tissue edema left side of the neck compared to the right but no deep abscess or fluid is identified. Js Cheung MD Chest X-Ray 05/19/17 0000 Signed Impressions: Service Date/Time: April 11:15 - CONCLUSION: Normal examination. Left hemidiaphragm is slightly elevated. Js Cheung MD Chest CT 05/19/17 0000 Signed Impressions: Service Date/Time: April 12:36 - CONCLUSION: Bronchiectasis and scarring in the right middle lobe medially. No concerning masses seen. No etiology for chest pain is identified. Js Cheung MD Objective Remarks General: No acute distress. Heart: Regular rate and rhythm. No murmur. Chest wall: Tenderness over the upper left pectoralis and left clavicle. No overlying erythema. No wounds noted. Lungs: Clear to auscultation bilaterally. No wheezes, rales, or rhonchi. Breathing is nonlabored. Abdomen: Soft, nontender, nondistended. Extremities: No lower extremity edema. Psych: Sleeping, but awakens and answers questions. Procedures None Urinary Catheter: No Vascular Central Line Catheter: No A/P Assessment and Plan 05/27/17 No change. Continue IV antibiotics. Blood cultures from 05/21/17 are negative. 1. Left neck and clavicle pain: CT shows edema, but no apparent abscess. MRI shows possible osteomyelitis of the clavicle. Continue pain control, using caution with opiates due to history of IV drug abuse. Appreciate orthopedic surgery recommendations. Nonoperative treatment at this time. 2. Gram-negative bacteremia: Blood cultures growing Serratia Marcescens, sensitive to Rocephin. Repeat blood cultures are negative. Appreciate infectious disease recommendations. Echocardiogram report noted. Continue antibiotics. Leukocytosis has resolved. 3. History of IV drug abuse: Patient has stated that he stopped using drugs one year ago. 4. DVT prophylaxis: Ambulation, SCDs. Geovanny Payton MD May 27, 2017 09:24
[2017-05-27 12:00] VITALS: BP 119/70; PULSE 101; RESP 18; TEMP 98.8; O2SAT 98
[2017-05-27] MEDS: cefTRIAXone INJ 2,000 MG in SODIUM CHLORIDE 0.9% INJ 100 ML IV SCH (14:36)
[2017-05-27 16:00] VITALS: BP 118/61; PULSE 92; RESP 18; TEMP 98.1; O2SAT 98
[2017-05-27 20:35] VITALS: BP 141/77; PULSE 99; RESP 18; TEMP 97.7; O2SAT 95
[2017-05-28 00:25] VITALS: BP 119/77; PULSE 63; RESP 18; TEMP 97.4; O2SAT 96
[2017-05-28 04:48] VITALS: BP 121/57; PULSE 60; RESP 18; TEMP 98; O2SAT 96
[2017-05-28] MEDS: oxyCODONE/ACETAMINOPHEN 5 MG/325 MG TAB PO PRN ×5 (05:55→21:41)
[2017-05-28 08:00] VITALS: BP 111/64; PULSE 67; RESP 16; TEMP 98; O2SAT 96
[2017-05-28] MEDS: SODIUM CHLORIDE 0.9% FLUSH 10 ML FLUSH IV FLUSH SCH ×2 (09:00→21:00)
[2017-05-28] MEDS: DOCUSATE SODIUM 50 MG/SENNA 8.6 MG TAB PO SCH ×2 (09:14→21:41)
--- NOTE | 2017-05-28 10:47 | HHI.PR ---
Subjective Remarks Follow-up left shoulder pain/infection. Patient reports that the pain is slightly better today. No other complaints at this time. Objective Vitals Vital Signs Date Time Temp Pulse Resp B/P (MAP) Pulse Ox O2 Delivery O2 Flow Rate FiO2 05/28/17 08:00 98.0 67 16 111/64 (80) 96 05/28/17 04:48 98.0 60 18 121/57 (78) 96 05/28/17 00:25 97.4 63 18 119/77 (91) 96 05/27/17 20:35 97.7 99 18 141/77 (98) 95 05/27/17 16:00 98.1 92 18 118/61 (80) 98 05/27/17 12:00 98.8 101 18 119/70 (86) 98 I/O 05/27/17 05/27/17 05/27/17 05/28/17 05/28/17 05/28/17 07:00 15:00 23:00 07:00 15:00 23:00 Intake Total 240 ml Output Total 700 ml 1700 ml 1700 ml 540 ml Balance -460 ml -1700 ml -1700 ml -540 ml Intake Oral 240 ml Output Urine Total 700 ml 1700 ml 1700 ml 540 ml Imaging Last Impressions Shoulder MRI 05/24/17 0000 Signed Impressions: Service Date/Time: Wednesday, May 24, 2017 09:33 - CONCLUSION: I do not see evidence for septic arthritis Persistent induration left anterior chest wall 2017 at 10:20 Board Certified Radiologist. This report was verified electronically. Chest MRI 05/22/17 0000 Signed Impressions: Service Date/Time: Monday, May 22, 2017 19:19 - CONCLUSION: Ill-defined soft tissue edema and enhancement of the anterior chest wall immediately adjacent to the medial left clavicle and extending into the left pectoralis muscle. Findings suggest cellulitis in the proper clinical setting. Traumatic etiology/muscle strain also be in the differential diagnosis. No evidence of organized drainable abscess. Adjacent mild clavicular bony edema may are present early osteomyelitis or reactive change from adjacent soft tissue infection. No findings to confirm definitive osteomyelitis. Calos Bauer MD Cervical Spine MRI 05/20/17 1037 Signed Impressions: Service Date/Time: Saturday, May 20, 2017 11:24 - CONCLUSION: 1. Please see the MRI of the soft tissues of the neck reported separately. 2. No MRI evidence to suggest osteomyelitis of the cervical spine. 3. Multilevel degenerative changes without central canal stenosis or neural impingement. Eugene Tam Jr., MD Soft Tissue MRI 05/19/17 Signed Impressions: Service Date/Time: April 16:06 - CONCLUSION: Low-grade edema along the undersurface and the posterior margin of the medial left clavicle including some edema in the pectoralis minor muscle. There is no drainable abscess. There may be a small supraclavicular node measuring 9 x 12 mm. I don't see any abnormal edema in the cleidomanubrial joint the clavicle or the lung itself. Js Cheung MD Shoulder X-Ray 05/19/17 Signed Impressions: Service Date/Time: April 11:16 - CONCLUSION: Unremarkable limited examination of the left shoulder. Js Cheung MD Neck CT 05/19/17 Signed Impressions: Service Date/Time: April 12:30 - CONCLUSION: Normal examination. There is diffuse soft tissue edema left side of the neck compared to the right but no deep abscess or fluid is identified. Js Cheung MD Chest X-Ray 05/19/17 Signed Impressions: Service Date/Time: April 11:15 - CONCLUSION: Normal examination. Left hemidiaphragm is slightly elevated. Js Cheung MD Chest CT 05/19/17 Signed Impressions: Service Date/Time: April 12:36 - CONCLUSION: Bronchiectasis and scarring in the right middle lobe medially. No concerning masses seen. No etiology for chest pain is identified. Js Cheung MD Objective Remarks General: No acute distress. Heart: Regular rate and rhythm. No murmur. Chest wall: Tenderness over the upper left pectoralis and left clavicle. No overlying erythema. No wounds noted. Lungs: Clear to auscultation bilaterally. No wheezes, rales, or rhonchi. Breathing is nonlabored. Abdomen: Soft, nontender, nondistended. Extremities: No lower extremity edema. Psych: Alert and oriented. Procedures None Urinary Catheter: No Vascular Central Line Catheter: No A/P Assessment and Plan 05/28/17: Pain is slightly better today. Continue IV antibiotics. Blood cultures from 05/21/17 are negative. 1. Left neck and clavicle pain: CT shows edema, but no apparent abscess. MRI shows possible osteomyelitis of the clavicle. Continue pain control, using caution with opiates due to history of IV drug abuse. Appreciate orthopedic surgery recommendations. Nonoperative treatment at this time. 2. Gram-negative bacteremia: Blood cultures growing Serratia Marcescens, sensitive to Rocephin. Repeat blood cultures are negative. Appreciate infectious disease recommendations. Echocardiogram report noted. Continue antibiotics. Leukocytosis has resolved. 3. History of IV drug abuse: Patient has stated that he stopped using drugs one year ago. 4. DVT prophylaxis: Ambulation, SCDs. Geovanny Payton MD May 28, 2017 10:47
[2017-05-28] MEDS: SODIUM CHLOR 0.45% 1000 ML INJ 1,000 ML IV SCH ×2 (10:50→23:09)
[2017-05-28 12:00] VITALS: BP 118/68; PULSE 80; RESP 16; TEMP 97.9; O2SAT 96
[2017-05-28] MEDS: cefTRIAXone INJ 2,000 MG in SODIUM CHLORIDE 0.9% INJ 100 ML IV SCH (13:26)
[2017-05-28 16:00] VITALS: BP 107/62; PULSE 96; RESP 16; TEMP 98.5; O2SAT 95
[2017-05-28 20:00] VITALS: BP 127/58; PULSE 77; RESP 18; TEMP 98.4; O2SAT 96
[2017-05-29] VITALS: BP 128/57; PULSE 70; RESP 18; TEMP 98.2; O2SAT 96
[2017-05-29 04:00] VITALS: BP 104/61; PULSE 64; RESP 18; TEMP 97.7; O2SAT 96
[2017-05-29] MEDS: oxyCODONE/ACETAMINOPHEN 5 MG/325 MG TAB PO PRN ×4 (06:12→20:58)
[2017-05-29 08:00] VITALS: BP 108/57; PULSE 61; RESP 16; TEMP 98.1; O2SAT 95
[2017-05-29] MEDS: SODIUM CHLORIDE 0.9% FLUSH 10 ML FLUSH IV FLUSH SCH ×2 (09:00→19:41)
[2017-05-29] MEDS: DOCUSATE SODIUM 50 MG/SENNA 8.6 MG TAB PO SCH ×2 (09:00→19:41)
--- NOTE | 2017-05-29 10:07 | HHI.PR ---
Subjective Remarks Follow up left shoulder infection/pain. Patient reports the pain is unchanged. No other complaints at this time. Objective Vitals Vital Signs Date Time Temp Pulse Resp B/P (MAP) Pulse Ox O2 Delivery O2 Flow Rate FiO2 05/29/17 04:00 97.7 64 18 104/61 (75) 96 05/29/17 00:00 98.2 70 18 128/57 (80) 96 05/28/17 20:00 98.4 77 18 127/58 (81) 96 05/28/17 16:00 98.5 96 16 107/62 (77) 95 05/28/17 12:00 97.9 80 16 118/68 (85) 96 I/O 05/28/17 05/28/17 05/28/17 05/29/17 05/29/17 05/29/17 07:00 15:00 23:00 07:00 15:00 23:00 Intake Total 850 ml 775 ml Output Total 1700 ml 540 ml 400 ml Balance -1700 ml -540 ml 450 ml 775 ml IV Total 850 ml 775 ml Output Urine Total 1700 ml 540 ml 400 ml # Voids 4 Imaging Last Impressions Shoulder MRI 05/24/17 0000 Signed Impressions: Service Date/Time: Wednesday, May 24, 2017 09:33 - CONCLUSION: I do not see evidence for septic arthritis Persistent induration left anterior chest wall 2017 at 10:20 Board Certified Radiologist. This report was verified electronically. Chest MRI 05/22/17 0000 Signed Impressions: Service Date/Time: Monday, May 22, 2017 19:19 - CONCLUSION: Ill-defined soft tissue edema and enhancement of the anterior chest wall immediately adjacent to the medial left clavicle and extending into the left pectoralis muscle. Findings suggest cellulitis in the proper clinical setting. Traumatic etiology/muscle strain also be in the differential diagnosis. No evidence of organized drainable abscess. Adjacent mild clavicular bony edema may are present early osteomyelitis or reactive change from adjacent soft tissue infection. No findings to confirm definitive osteomyelitis. Calos Bauer MD Cervical Spine MRI 05/20/17 1037 Signed Impressions: Service Date/Time: Saturday, May 20, 2017 11:24 - CONCLUSION: 1. Please see the MRI of the soft tissues of the neck reported separately. 2. No MRI evidence to suggest osteomyelitis of the cervical spine. 3. Multilevel degenerative changes without central canal stenosis or neural impingement. Eugene Tam Jr., MD Soft Tissue MRI 05/19/17 0000 Signed Impressions: Service Date/Time: April 16:06 - CONCLUSION: Low-grade edema along the undersurface and the posterior margin of the medial left clavicle including some edema in the pectoralis minor muscle. There is no drainable abscess. There may be a small supraclavicular node measuring 9 x 12 mm. I don't see any abnormal edema in the cleidomanubrial joint the clavicle or the lung itself. Js Cheung MD Shoulder X-Ray 05/19/17 0000 Signed Impressions: Service Date/Time: April 11:16 - CONCLUSION: Unremarkable limited examination of the left shoulder. Js Cheung MD Neck CT 05/19/17 0000 Signed Impressions: Service Date/Time: April 12:30 - CONCLUSION: Normal examination. There is diffuse soft tissue edema left side of the neck compared to the right but no deep abscess or fluid is identified. Js Cheung MD Chest X-Ray 05/19/17 0000 Signed Impressions: Service Date/Time: April 11:15 - CONCLUSION: Normal examination. Left hemidiaphragm is slightly elevated. Js Cheung MD Chest CT 05/19/17 0000 Signed Impressions: Service Date/Time: April 12:36 - CONCLUSION: Bronchiectasis and scarring in the right middle lobe medially. No concerning masses seen. No etiology for chest pain is identified. Js Cheung MD Objective Remarks General: No acute distress. Heart: Regular rate and rhythm. No murmur. Chest wall: Tenderness over the upper left pectoralis and left clavicle. No overlying erythema. No wounds noted. Lungs: Clear to auscultation bilaterally. No wheezes, rales, or rhonchi. Breathing is nonlabored. Abdomen: Soft, nontender, nondistended. Extremities: No lower extremity edema. Psych: Alert and oriented. Procedures None Urinary Catheter: No Vascular Central Line Catheter: No A/P Assessment and Plan 05/29/17: Pain is about the same today. Continue IV antibiotics per infectious disease recommendations. Awaiting further recommendations regarding length of treatment. Blood cultures from 05/21/17 are negative. 1. Left neck and clavicle pain: CT shows edema, but no apparent abscess. MRI shows possible osteomyelitis of the clavicle. Continue pain control, using caution with opiates due to history of IV drug abuse. Appreciate orthopedic surgery recommendations. Nonoperative treatment at this time. 2. Gram-negative bacteremia: Blood cultures growing Serratia Marcescens, sensitive to Rocephin. Repeat blood cultures are negative. Appreciate infectious disease recommendations. Echocardiogram report noted. Continue antibiotics. Leukocytosis has resolved. 3. History of IV drug abuse: Patient has stated that he stopped using drugs one year ago. 4. DVT prophylaxis: Ambulation, SCDs. Geovanny Payton MD May 29, 2017 10:07
[2017-05-29 12:00] VITALS: BP 99/58; PULSE 65; RESP 16; TEMP 98.2; O2SAT 96
[2017-05-29] MEDS: cefTRIAXone INJ 2,000 MG in SODIUM CHLORIDE 0.9% INJ 100 ML IV SCH (14:50)
[2017-05-29 16:00] VITALS: BP 113/63; PULSE 81; RESP 16; TEMP 98.4; O2SAT 96
[2017-05-29 20:30] VITALS: BP 120/59; PULSE 80; RESP 18; TEMP 98.5; O2SAT 95
[2017-05-30] VITALS (7 sets, daily range): BP systolic 88–109; BP diastolic 52–64; PULSE 58–97; RESP 18–20; TEMP 97.5–98.2; O2SAT 94–96
[2017-05-30] MEDS: oxyCODONE/ACETAMINOPHEN 5 MG/325 MG TAB PO PRN ×4 (01:43→21:44)
[2017-05-30] MEDS: DOCUSATE SODIUM 50 MG/SENNA 8.6 MG TAB PO SCH ×2 (08:25→21:44)
[2017-05-30] MEDS: SODIUM CHLORIDE 0.9% FLUSH 10 ML FLUSH IV FLUSH SCH ×2 (08:37→21:45)
--- NOTE | 2017-05-30 09:53 | HHI.PR ---
Subjective Remarks The patient was resting comfortably in bed. He said he still had some left- sided clavicle pain. He said he has been breathing well. He has been doing exercises. He has been sleeping well and tolerating a diet. Objective Vitals Vital Signs Date Time Temp Pulse Resp B/P (MAP) Pulse Ox O2 Delivery O2 Flow Rate FiO2 05/30/17 07:36 98.0 63 18 102/52 (69) 96 05/30/17 06:32 97.6 59 19 101/61 (74) 94 05/30/17 06:12 97.5 58 20 88/55 (66) 96 05/30/17 00:31 98.2 70 18 109/57 (74) 95 05/29/17 20:30 98.5 80 18 120/59 (79) 95 05/29/17 16:00 98.4 81 16 113/63 (80) 96 05/29/17 12:00 98.2 65 16 99/58 (72) 96 I/O 05/29/17 05/29/17 05/29/17 05/30/17 05/30/17 05/30/17 07:00 15:00 23:00 07:00 15:00 23:00 Intake Total 775 ml Output Total 600 ml Balance 775 ml -600 ml IV Total 775 ml Output Urine Total 600 ml # Voids 4 1 Imaging Last Impressions Shoulder MRI 05/24/17 0000 Signed Impressions: Service Date/Time: Wednesday, May 24, 2017 09:33 - CONCLUSION: I do not see evidence for septic arthritis Persistent induration left anterior chest wall 2017 at 10:20 Board Certified Radiologist. This report was verified electronically. Chest MRI 05/22/17 0000 Signed Impressions: Service Date/Time: Monday, May 22, 2017 19:19 - CONCLUSION: Ill-defined soft tissue edema and enhancement of the anterior chest wall immediately adjacent to the medial left clavicle and extending into the left pectoralis muscle. Findings suggest cellulitis in the proper clinical setting. Traumatic etiology/muscle strain also be in the differential diagnosis. No evidence of organized drainable abscess. Adjacent mild clavicular bony edema may are present early osteomyelitis or reactive change from adjacent soft tissue infection. No findings to confirm definitive osteomyelitis. Calos Bauer MD Cervical Spine MRI 05/20/17 1037 Signed Impressions: Service Date/Time: Saturday, May 20, 2017 11:24 - CONCLUSION: 1. Please see the MRI of the soft tissues of the neck reported separately. 2. No MRI evidence to suggest osteomyelitis of the cervical spine. 3. Multilevel degenerative changes without central canal stenosis or neural impingement. Eugene Tam Jr., MD Soft Tissue MRI 05/19/17 0000 Signed Impressions: Service Date/Time: April 16:06 - CONCLUSION: Low-grade edema along the undersurface and the posterior margin of the medial left clavicle including some edema in the pectoralis minor muscle. There is no drainable abscess. There may be a small supraclavicular node measuring 9 x 12 mm. I don't see any abnormal edema in the cleidomanubrial joint the clavicle or the lung itself. Js Cheung MD Shoulder X-Ray 05/19/17 0000 Signed Impressions: Service Date/Time: April 11:16 - CONCLUSION: Unremarkable limited examination of the left shoulder. Js Cheung MD Neck CT 05/19/17 0000 Signed Impressions: Service Date/Time: April 12:30 - CONCLUSION: Normal examination. There is diffuse soft tissue edema left side of the neck compared to the right but no deep abscess or fluid is identified. Js Cheung MD Chest X-Ray 05/19/17 0000 Signed Impressions: Service Date/Time: April 11:15 - CONCLUSION: Normal examination. Left hemidiaphragm is slightly elevated. Js Cheung MD Chest CT 05/19/17 0000 Signed Impressions: Service Date/Time: April 12:36 - CONCLUSION: Bronchiectasis and scarring in the right middle lobe medially. No concerning masses seen. No etiology for chest pain is identified. Js Cheung MD Objective Remarks General: No acute distress. HEENT: NC, AT. Heart: Regular rate and rhythm. No murmur. Chest wall: Tenderness over the upper left pectoralis and left lateral clavicle. No overlying erythema. No wounds noted. Lungs: Clear to auscultation bilaterally. No wheezes, rales, or rhonchi. Breathing is nonlabored. Abdomen: Soft, nontender, nondistended. Extremities: No lower extremity edema. Neuro: Alert and oriented. Psych: Mood and affect appropriate. Procedures None Medications and IVs Current Medications Medications (Trade) Dose Ordered Sig/Giovanni Route Start Time Stop Time Status Last Admin (NS Flush) 2 ml UNSCH PRN IV FLUSH 05/19/17 15:00 (NS Flush) 2 ml BID IV FLUSH 05/19/17 21:00 05/30/17 08:37 (Tylenol) 650 mg Q4H PRN PO 05/19/17 15:00 (Zofran Inj) 4 mg Q6H PRN IVP 05/19/17 15:00 (Narcan Inj) 0.4 mg UNSCH PRN IV PUSH 05/19/17 15:00 (Loren-Colace) 1 tab BID PO 05/19/17 21:00 05/28/17 21:41 (Milk Of Magnesia Liq) 30 ml Q12H PRN PO 05/19/17 15:00 (Senokot) 17.2 mg Q12H PRN PO 05/19/17 15:00 (Dulcolax Supp) 10 mg DAILY PRN RECTAL 05/19/17 15:00 (Lactulose Liq) 30 ml DAILY PRN PO 05/19/17 15:00 (Percocet 5-325 Mg) 1 tab Q4H PRN PO 05/19/17 15:00 05/27/17 08:06 (Percocet 5-325 Mg) 2 tab Q4H PRN PO 05/19/17 15:00 05/30/17 01:43 Ceftriaxone Sodium 2000 mg/ Sodium Chloride 100 ml @ 200 mls/hr Q24H IV 05/24/17 15:00 05/29/17 14:50 A/P Assessment and Plan Left neck and clavicle pain CT shows edema, but no apparent abscess. MRI shows possible osteomyelitis of the clavicle. ID and ortho consults appreciated. - Continue pain control, using caution with opiates due to history of IV drug abuse. - Nonoperative treatment at this time per ortho. - antibiotics per ID. Gram-negative bacteremia Blood cultures growing Serratia Marcescens, sensitive to Rocephin. Repeat blood cultures are negative. Echocardiogram without vegetation, normal EF. - Continue antibiotics per ID. History of IV drug abuse Patient has stated that he stopped using drugs one year ago. - referral to support systems as needed. DVT prophylaxis: Ambulation, SCDs Kevin Vargas DO May 30, 2017 09:53
[2017-05-30] MEDS: cefTRIAXone INJ 2,000 MG in SODIUM CHLORIDE 0.9% INJ 100 ML IV SCH (13:19)
--- NOTE | 2017-05-30 13:39 | HHI.IDPN ---
Subjective Subjective Remarks ID COVERAGE 41 yo male presented with painful lesions for few days on the back of his neck He states its a recurrent problem and he has hg/l frequnt MRSA skin infections some required I+D Pt had CT of the neck and it did not show any abscess Pt is afebrile, has midly elevated WBC and elevated ESR Has BC with Serratia Imaging studies did not show any fluid in L shoulder, has edema of pectoralis muscle but no drainable fluid Notes reviewed Temps ok Pain in L supraclavicular area slightly better No new (+) BC Moving his LUE well Antibiotics Rocephin Lines PIV Past Medical History History IV drug use with heroin Multiple abscesses Past Surgical History Tracheotomy Allergies: Coded Allergies: Sulfa (Sulfonamide Antibiotics) (Unverified Allergy, Severe, Rash, 01/11/17 ) sulfamethoxazole (Unverified Allergy, Severe, RASH, 01/11/17) trimethoprim (Unverified Allergy, Severe, RASH, 01/11/17) *MDRO Multi-Drug Resistant Organism (Verified Adverse Reaction, Unknown, ) 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 Vital Signs Date Time Temp Pulse Resp B/P (MAP) Pulse Ox O2 Delivery O2 Flow Rate FiO2 05/30/17 11:35 97.6 75 18 94/52 (66) 96 05/30/17 07:36 98.0 63 18 102/52 (69) 96 05/30/17 06:32 97.6 59 19 101/61 (74) 94 05/30/17 06:12 97.5 58 20 88/55 (66) 96 05/30/17 00:31 98.2 70 18 109/57 (74) 95 05/29/17 20:30 98.5 80 18 120/59 (79) 95 05/29/17 16:00 98.4 81 16 113/63 (80) 96 Imaging Shoulder MRI 05/24/17 0000 Signed Impressions: Service Date/Time: Wednesday, May 24, 2017 09:33 - CONCLUSION: I do not see evidence for septic arthritis Persistent induration left anterior chest wall 2017 at 10:20 Board Certified Radiologist. This report was verified electronically. Chest MRI 05/22/17 0000 Signed Impressions: Service Date/Time: Monday, May 22, 2017 19:19 - CONCLUSION: Ill-defined soft tissue edema and enhancement of the anterior chest wall immediately adjacent to the medial left clavicle and extending into the left pectoralis muscle. Findings suggest cellulitis in the proper clinical setting. Traumatic etiology/muscle strain also be in the differential diagnosis. No evidence of organized drainable abscess. Adjacent mild clavicular bony edema may are present early osteomyelitis or reactive change from adjacent soft tissue infection. No findings to confirm definitive osteomyelitis. Calos Bauer MD Last Impressions Chest MRI 05/22/17 0000 Signed Impressions: Service Date/Time: Monday, May 22, 2017 19:19 - CONCLUSION: Ill-defined soft tissue edema and enhancement of the anterior chest wall immediately adjacent to the medial left clavicle and extending into the left pectoralis muscle. Findings suggest cellulitis in the proper clinical setting. Traumatic etiology/muscle strain also be in the differential diagnosis. No evidence of organized drainable abscess. Adjacent mild clavicular bony edema may are present early osteomyelitis or reactive change from adjacent soft tissue infection. No findings to confirm definitive osteomyelitis. Calos Bauer MD Cervical Spine MRI 05/20/17 1037 Signed Impressions: Service Date/Time: Saturday, May 20, 2017 11:24 - CONCLUSION: 1. Please see the MRI of the soft tissues of the neck reported separately. 2. No MRI evidence to suggest osteomyelitis of the cervical spine. 3. Multilevel degenerative changes without central canal stenosis or neural impingement. Eugene Tam Jr., MD Soft Tissue MRI 05/19/17 0000 Signed Impressions: Service Date/Time: April 16:06 - CONCLUSION: Low-grade edema along the undersurface and the posterior margin of the medial left clavicle including some edema in the pectoralis minor muscle. There is no drainable abscess. There may be a small supraclavicular node measuring 9 x 12 mm. I don't see any abnormal edema in the cleidomanubrial joint the clavicle or the lung itself. Js Cheung MD Shoulder X-Ray 05/19/17 0000 Signed Impressions: Service Date/Time: April 11:16 - CONCLUSION: Unremarkable limited examination of the left shoulder. Js Cheung MD Neck CT 05/19/17 0000 Signed Impressions: Service Date/Time: April 12:30 - CONCLUSION: Normal examination. There is diffuse soft tissue edema left side of the neck compared to the right but no deep abscess or fluid is identified. Js Cheung MD Chest X-Ray 05/19/17 0000 Signed Impressions: Service Date/Time: April 11:15 - CONCLUSION: Normal examination. Left hemidiaphragm is slightly elevated. Js Cheung MD Chest CT 05/19/17 0000 Signed Impressions: Service Date/Time: April 12:36 - CONCLUSION: Bronchiectasis and scarring in the right middle lobe medially. No concerning masses seen. No etiology for chest pain is identified. Js Cheung MD Physical Exam GENERAL: Awake and alert, NAD. He does not look toxic appearing SKIN: No jaundice, rashes, or lesions. No embolic lesions HEAD: Atraumatic. Normocephalic. EYES: Pupils equal and round and reactive. Extraocular motions intact. No scleral icterus. ENT: Nose without bleeding or purulent drainage. Throat without visible erythema, exudates, masses, or lesions. NECK: Trachea midline. + tender to palpation on L side, no obvious swelling noted. CHEST: tenderness to palpation over L pectoralis area, very minimal difference in size compared to R, skin not indurated CARDIOVASCULAR: Regular rate and rhythm . No murmur RESPIRATORY/CHEST: Symmetric, unlabored respirations. Clear to auscultation GASTROINTESTINAL: Abdomen soft, non-tender, nondistended. No hepato-splenomegaly , or palpable masses. No guarding. GENITOURINARY: Without palpable bladder distension. MUSCULOSKELETAL: Extremities without clubbing, cyanosis, or edema. No joint tenderness or effusion noted. ROM limited in L shoulder, both passive and active NEUROLOGICAL: Awake and alert. Motor and sensory grossly within normal limits. Follows commands. Clear speech. Moves all extremities. PSYCHIATRIC: Calm and cooperative LINE: No evidence of infection Assessment & Plan Remarks Serratia sepsis, with cellulitis L supraclavicular and pectoralis, no myositis seen, no abscess Known IVDU PLAN Continue Rocephin Repeat MRI chest tomorrow for followup look at L supraclavicular and pectoralis area - if same, and no fluid collection, will consider D/C on PO Levaquin 750 mg daily x 6-8 weeks total Follow C/S Monitor progress Explained plan to the patient Fern Carpio MD May 30, 2017 13:39
[2017-05-31] VITALS: BP 106/63; PULSE 77; RESP 18; TEMP 98.2; O2SAT 96
[2017-05-31] MEDS: oxyCODONE/ACETAMINOPHEN 5 MG/325 MG TAB PO PRN ×4 (01:58→15:38)
[2017-05-31 04:00] VITALS: BP 103/63; PULSE 68; RESP 18; TEMP 97.6; O2SAT 97
[2017-05-31 06:58] LABS: HEMATOCRIT 38.8 % (39.0-51.0); HEMOGLOBIN 13.4 GM/DL (13.0-17.0); MEAN CELL VOLUME 87.5 FL (80.0-100.0); MEAN CORPUSCULAR HEMOGLOBIN 30.3 PG (27.0-34.0); MEAN CORPUSCULAR HGB CONC 34.7 % (32.0-36.0); MEAN PLATELET VOLUME 7.2 FL (7.0-11.0); PLATELET COUNT 328 TH/MM3 (150-450); RED BLOOD COUNT 4.43 MIL/MM3 (4.50-5.90); RED CELL DISTRIBUTION WIDTH 14.8 % (11.6-17.2); WHITE BLOOD COUNT 7.5 TH/MM3 (4.0-11.0)
[2017-05-31] MEDS: SODIUM CHLORIDE 0.9% FLUSH 10 ML FLUSH IV FLUSH SCH (07:12)
[2017-05-31] MEDS: DOCUSATE SODIUM 50 MG/SENNA 8.6 MG TAB PO SCH (07:12)
[2017-05-31 07:21] LABS: BICARBONATE 31.3 MEQ/L (21.0-32.0); CALCIUM 9.2 MG/DL (8.5-10.1); CREATININE 0.76 MG/DL (0.60-1.30); MAGNESIUM 2.1 MG/DL (1.5-2.5)
[2017-05-31 08:00] VITALS: BP 117/64; PULSE 70; RESP 17; TEMP 98.2; O2SAT 96
--- NOTE | 2017-05-31 09:47 | HHI.PR ---
Subjective Remarks The patient was resting in bed comfortably. He had no acute complaints. No concerns reported. Objective Vitals Vital Signs Date Time Temp Pulse Resp B/P (MAP) Pulse Ox O2 Delivery O2 Flow Rate FiO2 05/31/17 08:00 98.2 70 17 117/64 (81) 96 05/31/17 07:12 16 05/31/17 04:00 97.6 68 18 103/63 (76) 97 05/31/17 00:00 98.2 77 18 106/63 (77) 96 05/30/17 20:00 98.1 79 18 103/62 (76) 96 05/30/17 15:48 98.0 97 18 99/64 (76) 96 05/30/17 11:35 97.6 75 18 94/52 (66) 96 I/O 05/30/17 05/30/17 05/30/17 05/31/17 05/31/17 05/31/17 07:00 15:00 23:00 07:00 15:00 23:00 Intake Total 240 ml Balance 240 ml Intake Oral 240 ml # Voids 1 1 4 Result Diagram: 05/31/17 0642 05/31/17 0642 Imaging Last Impressions Shoulder MRI 05/24/17 0000 Signed Impressions: Service Date/Time: Wednesday, May 24, 2017 09:33 - CONCLUSION: I do not see evidence for septic arthritis Persistent induration left anterior chest wall 2017 at 10:20 Board Certified Radiologist. This report was verified electronically. Chest MRI 05/22/17 0000 Signed Impressions: Service Date/Time: Monday, May 22, 2017 19:19 - CONCLUSION: Ill-defined soft tissue edema and enhancement of the anterior chest wall immediately adjacent to the medial left clavicle and extending into the left pectoralis muscle. Findings suggest cellulitis in the proper clinical setting. Traumatic etiology/muscle strain also be in the differential diagnosis. No evidence of organized drainable abscess. Adjacent mild clavicular bony edema may are present early osteomyelitis or reactive change from adjacent soft tissue infection. No findings to confirm definitive osteomyelitis. Calos Bauer MD Cervical Spine MRI 05/20/17 1037 Signed Impressions: Service Date/Time: Saturday, May 20, 2017 11:24 - CONCLUSION: 1. Please see the MRI of the soft tissues of the neck reported separately. 2. No MRI evidence to suggest osteomyelitis of the cervical spine. 3. Multilevel degenerative changes without central canal stenosis or neural impingement. Eugene Tam Jr., MD Soft Tissue MRI 05/19/17 0000 Signed Impressions: Service Date/Time: April 16:06 - CONCLUSION: Low-grade edema along the undersurface and the posterior margin of the medial left clavicle including some edema in the pectoralis minor muscle. There is no drainable abscess. There may be a small supraclavicular node measuring 9 x 12 mm. I don't see any abnormal edema in the cleidomanubrial joint the clavicle or the lung itself. Js Cheung MD Shoulder X-Ray 05/19/17 0000 Signed Impressions: Service Date/Time: April 11:16 - CONCLUSION: Unremarkable limited examination of the left shoulder. Js Cheung MD Neck CT 05/19/17 0000 Signed Impressions: Service Date/Time: April 12:30 - CONCLUSION: Normal examination. There is diffuse soft tissue edema left side of the neck compared to the right but no deep abscess or fluid is identified. Js Cheung MD Chest X-Ray 05/19/17 0000 Signed Impressions: Service Date/Time: April 11:15 - CONCLUSION: Normal examination. Left hemidiaphragm is slightly elevated. Js Cheung MD Chest CT 05/19/17 0000 Signed Impressions: Service Date/Time: April 12:36 - CONCLUSION: Bronchiectasis and scarring in the right middle lobe medially. No concerning masses seen. No etiology for chest pain is identified. Js Cheung MD Objective Remarks General: No acute distress. HEENT: NC, AT. Heart: Regular rate and rhythm. No murmur. Chest wall: Tenderness over the upper left pectoralis and left lateral clavicle. No overlying erythema. No wounds noted. Lungs: Clear to auscultation bilaterally. No wheezes, rales, or rhonchi. Breathing is nonlabored. Abdomen: Soft, nontender, nondistended. Extremities: No lower extremity edema. Neuro: Alert and oriented. Psych: Mood and affect appropriate. Procedures None Medications and IVs Current Medications Medications (Trade) Dose Ordered Sig/Giovanni Route Start Time Stop Time Status Last Admin (NS Flush) 2 ml UNSCH PRN IV FLUSH 05/19/17 15:00 (NS Flush) 2 ml BID IV FLUSH 05/19/17 21:00 05/31/17 07:12 (Tylenol) 650 mg Q4H PRN PO 05/19/17 15:00 (Zofran Inj) 4 mg Q6H PRN IVP 05/19/17 15:00 (Narcan Inj) 0.4 mg UNSCH PRN IV PUSH 05/19/17 15:00 (Loren-Colace) 1 tab BID PO 05/19/17 21:00 05/30/17 21:44 (Milk Of Magnesia Liq) 30 ml Q12H PRN PO 05/19/17 15:00 (Senokot) 17.2 mg Q12H PRN PO 05/19/17 15:00 (Dulcolax Supp) 10 mg DAILY PRN RECTAL 05/19/17 15:00 (Lactulose Liq) 30 ml DAILY PRN PO 05/19/17 15:00 (Percocet 5-325 Mg) 1 tab Q4H PRN PO 05/19/17 15:00 05/27/17 08:06 (Percocet 5-325 Mg) 2 tab Q4H PRN PO 05/19/17 15:00 05/31/17 06:07 Ceftriaxone Sodium 2000 mg/ Sodium Chloride 100 ml @ 200 mls/hr Q24H IV 05/24/17 15:00 05/30/17 13:19 A/P Assessment and Plan Left neck and clavicle pain CT shows edema, but no apparent abscess. MRI shows possible osteomyelitis of the clavicle. ID and ortho consults appreciated. - Continue pain control, using caution with opiates due to history of IV drug abuse. - Nonoperative treatment at this time per ortho. - antibiotics per ID. Repeat MRI of the chest to be obtained and pending that result the patient may be discharged on a course of by mouth antibiotics. Gram-negative bacteremia Blood cultures growing Serratia Marcescens, sensitive to Rocephin. Repeat blood cultures are negative. Echocardiogram without vegetation, normal EF. - Continue antibiotics per ID. History of IV drug abuse Patient has stated that he stopped using drugs one year ago. - referral to support systems as needed. DVT prophylaxis: Ambulation, SCDs Discharge Planning Await repeat MRI of chest Kevin Vargas DO May 31, 2017 09:46
[2017-05-31 12:00] VITALS: BP 115/72; PULSE 94; RESP 17; TEMP 98.1; O2SAT 95
[2017-05-31] MEDS ORDERED: GADODIAMIDE PF 287 MG/ML 5 ML VIAL (for RAD MRI) IVCONTRAST ONE (12:58)
[2017-05-31] MEDS: cefTRIAXone INJ 2,000 MG in SODIUM CHLORIDE 0.9% INJ 100 ML IV SCH (13:23)
--- NOTE | 2017-05-31 13:35 | RADRPT ---
EXAM DATE/TIME: 05/31/2017 12:31 [facility] COMPARISON: CT THORAX W CONTRAST, May 19, 2017, 12:36. MRI SHOULDER LEFT W & W/O CONTRAST, May 24 7, 9:33. INDICATIONS : Left shoulder/chest infection with pain. CONTRAST: 14 cc Omniscan (gadodiamide) IV MEDICAL HISTORY : IVDA SURGICAL HISTORY : tracheostomy ENCOUNTER: Subsequent ACUITY: 2 weeks PAIN SCORE: 3/10 LOCATION: Left shoulder/chest TECHNIQUE: Multi-weighted, multi-axial MR images of the chest both before and after the administration of intrav enous contrast. FINDINGS: There is edema in the left supraclavicular area extending to the subcutaneous tissues of the upper ch est without focal fluid collections, abscess formation. The marrow appears intact without signs of os teomyelitis. CONCLUSION: Soft tissue induration with enhancement most likely inflammatory without evidence for abscess or oste omyelitis. Jordin Harrington MD on May 31, 2017 at 13:25 Board Certified Radiologist. This report was verified electronically.
[2017-05-31] MEDS ORDERED: OXYC1TAB63 PO (15:30)
[2017-05-31] MEDS ORDERED: LEVA750T9 PO (15:30)
--- NOTE | 2017-05-31 15:43 | HHI.DCPOC ---
Discharge Care Plan Diagnosis: (1) Osteomyelitis of clavicle Goals to Promote Your Health * To prevent worsening of your condition and complications * To maintain your health at the optimal level Directions to Meet Your Goals Take your medications as prescribed Follow your dietary instruction Follow activity as directed Keep your appointments as scheduled Take your immunizations and boosters as scheduled If your symptoms worsen call your PCP, if no PCP go to Urgent Care Center or Emergency Room Smoking is Dangerous to Your Health. Avoid second hand smoke Call the 24-hour hour crisis hotline for domestic abuse at Kevin Vargas DO May 31, 2017 15:43
--- NOTE | 2017-05-31 15:48 | HHI.DS ---
Discharge Summary Admission Date May 22, 2017 at 09:03 Discharge Date: May 31, 2017 Admitting Diagnosis neck cellulitis (1) Neck pain ICD Code: M54.2 - Cervicalgia (2) Osteomyelitis of clavicle ICD Code: M86.9 - Osteomyelitis, unspecified Diagnosis: Principal (3) Bacteremia ICD Code: R78.81 - Bacteremia Diagnosis: Principal Procedures None Brief History - From Admission This is a 41-year-old male with past medical history of IV drug use with heroin and multiple abscesses who presented with abrupt left neck pain. Patient stated that he felt achy in bis left shoulder yesterday. he stated it improved but woke up with the left neck and clavicle pain this morning. Pain is 10 out of 10 and worsens with any type of movement of the left neck or shoulder. Patient stated that his range of motion of the shoulder is limited secondary to the left clavicle neck pain. That he hasn't done any IV drugs for at least one year. denied any fevers or chills. All other review of system reviewed and negative. CBC/BMP: 05/31/17 0642 05/31/17 0642 Significant Findings Laboratory Tests Test 05/31/17 06:42 Red Blood Count 4.43 MIL/MM3 (4.50-5.90) Hematocrit 38.8 % (39.0-51.0) Imaging Last Impressions Chest MRI 05/31/17 0000 Signed Impressions: Service Date/Time: Wednesday, May 31, 2017 12:31 - CONCLUSION: Soft tissue induration with enhancement most likely inflammatory without evidence for abscess or osteomyelitis. Jordin Harrington MD Shoulder MRI 05/24/17 0000 Signed Impressions: Service Date/Time: Wednesday, May 24, 2017 09:33 - CONCLUSION: I do not see evidence for septic arthritis Persistent induration left anterior chest wall 2017 at 10:20 Board Certified Radiologist. This report was verified electronically. Cervical Spine MRI 05/20/17 1037 Signed Impressions: Service Date/Time: Saturday, May 20, 2017 11:24 - CONCLUSION: 1. Please see the MRI of the soft tissues of the neck reported separately. 2. No MRI evidence to suggest osteomyelitis of the cervical spine. 3. Multilevel degenerative changes without central canal stenosis or neural impingement. Eugene Tam Jr., MD Soft Tissue MRI 05/19/17 Signed Impressions: Service Date/Time: April 16:06 - CONCLUSION: Low-grade edema along the undersurface and the posterior margin of the medial left clavicle including some edema in the pectoralis minor muscle. There is no drainable abscess. There may be a small supraclavicular node measuring 9 x 12 mm. I don't see any abnormal edema in the cleidomanubrial joint the clavicle or the lung itself. Js Cheung MD Shoulder X-Ray 05/19/17 0000 Signed Impressions: Service Date/Time: April 11:16 - CONCLUSION: Unremarkable limited examination of the left shoulder. Js Cheung MD Neck CT 05/19/17 Signed Impressions: Service Date/Time: April 12:30 - CONCLUSION: Normal examination. There is diffuse soft tissue edema left side of the neck compared to the right but no deep abscess or fluid is identified. Js Cheung MD Chest X-Ray 05/19/17 0000 Signed Impressions: Service Date/Time: April 11:15 - CONCLUSION: Normal examination. Left hemidiaphragm is slightly elevated. Js Cheung MD Chest CT 05/19/17 Signed Impressions: Service Date/Time: April 12:36 - CONCLUSION: Bronchiectasis and scarring in the right middle lobe medially. No concerning masses seen. No etiology for chest pain is identified. Js Cheung MD PE at Discharge General: No acute distress. HEENT: NC, AT. Heart: Regular rate and rhythm. No murmur. Chest wall: Tenderness over the upper left pectoralis and left lateral clavicle. No overlying erythema. No wounds noted. Lungs: Clear to auscultation bilaterally. No wheezes, rales, or rhonchi. Breathing is nonlabored. Abdomen: Soft, nontender, nondistended. Extremities: No lower extremity edema. Neuro: Alert and oriented. Psych: Mood and affect appropriate. Hospital Course Left neck and clavicle pain CT showed edema, but no apparent abscess. MRI showed possible osteomyelitis of the clavicle. ID and orthopedic surgery were consulted. He worked with PT/ OT. Antibiotics were changed to IV ceftriaxone. He received pain control as needed. Repeat MRI of the chest was stable. ID recommended a six week course of PO Levaquin. The pt will follow up with orthopedic surgery as an outpt. Gram-negative bacteremia Blood cultures grew Serratia Marcescens, sensitive to Rocephin. Repeat blood cultures were negative. Echocardiogram without vegetation, normal EF. He will complete a course of PO Levaquin. History of IV drug abuse Patient has stated that he stopped using drugs one year ago. Social work was consulted. Pt Condition on Discharge: Stable Discharge Disposition: Discharge Home Discharge Time: > 30 minutes Discharge Instructions DIET: Follow Instructions for: As Tolerated, No Restrictions Activities you can perform: Regular-No Restrictions Follow up Referrals: Orthopedics - [address] Hameed PCP Follow-up - 1 Week New Medications: Levofloxacin (Levaquin) 750 Mg Tablet 750 MG PO DAILY for Infection for 42 Days, #42 TAB 0 Refills Oxycodone HCl/Acetaminophen (Oxycodone-Acetaminophen 5-325) 5 Mg-325 Mg Tablet 1 TAB PO Q4H PRN for PAIN SCALE 1 TO 10, #20 TAB Kevin Vargas DO May 31, 2017 15:48
[2017-05-31 16:00] VITALS: BP 125/85; PULSE 113; RESP 17; TEMP 98; O2SAT 96
[2017-05-31 16:44] VITALS: RESP 18
== END 2017-05-31 18:27 | disposition home or self-care (01) | DRG 603 ==
LOC: NEPD 10:40 → INTOOBSV 14:41 → NEDA 14:41 → N05A 16:54 → OBSVTOIN 05-22 09:03
PROVIDERS: ADMIT Hospitalist; ATTEND Hospitalist
DX: L03.221 Cellulitis of neck (principal); M60.012 Infective myositis, left shoulder; R78.81 Bacteremia; M86.9 Osteomyelitis, unspecified; J47.9 Bronchiectasis, uncomplicated; R70.0 Elevated erythrocyte sedimentation rate; B96.89 Other specified bacterial agents as the cause of diseases classified elsewhere; R79.82 Elevated C-reactive protein (CRP); Z86.14 Personal history of Methicillin resistant Staphylococcus aureus infection
CPT/HCPCS: 70491; 70543; 71010; 71260; 71552; 72156; 73030; 73223; 80048; 80053; 80307; 83605; 83735; 85025; 85027; 85652; 86140; 87040; 87077; 87186; 87205; 93308; 96365; 96366; 96375; A9579; G0378; J0692; J0696; J1885; J3370; J7040; J7050; Q9967